=== PATIENT | female | born 1985 | race African-American/Black ===

== ENCOUNTER 2017-05-18 21:49 | Emergency (ER) | payer BC ==
--- NOTE | 2017-05-18 22:53 | ED ---
General Adult HPI - General Chief complaint: Chest Pain Stated complaint: Chest pain, numbness in back Source: patient, RN notes reviewed Mode of arrival: ambulatory Limitations: no limitations - History of Present Illness Initial comments: Chief complaint history of present illness is a 31-year-old female here for complaint of on-again off-again chest discomfort for one month. The chest pain lasts only for a second or 2. A sharp pain. Skin sometimes be reproduced by breathing or movement. The patient fears that it might be caused by her medication, she's been on Adipex for 9 months. Starting and stopping it. A friend of hers told her she developed pericardial effusion and should go to the hospital if she is having chest pain. - Related Data Home Medications Medication Instructions Recorded Confirmed No Known Home Medications [No 05/18/17 05/18/17 Known Home Medications] Allergies Allergy/AdvReac Type Severity Reaction Status Date / Time codeine Allergy Unknown Verified 05/18/17 23:22 Penicillins Allergy Unknown Verified 05/18/17 23:22 Review of Systems ROS Statement: Those systems with pertinent positive or pertinent negative responses have been documented in the HPI. Review of systems currently without chest pain though she does get it on again off again several times a day while sitting relaxing or taking a deep breath or coughing. No associated nausea vomiting sweats or radiation of pain. Patient reports she took her last Adipex pill 2 days ago. She's been taking it on again off again for over 9 months. All systems are reviewed. Patient denies any past medical problems. Surgeries include breast reduction, tonsils and adenoids, heel spur and right wrist ganglion. Family history no cancers or young deaths in adults. Patient has ALLERGIES to penicillin and codeine. She does not smoke or drink alcohol socially. Denies any exposure to chemicals on the job working home. ROS Other: All systems not noted in ROS Statement are negative. Limitations: ROS unobtainable due to patients medical condition Past Medical History Past Medical History: Asthma History of Any Multi-Drug Resistant Organisms: None Reported Past Surgical History: Breast Surgery, Orthopedic Surgery, Tonsillectomy Past Psychological History: Depression Smoking Status: Never smoker Past Alcohol Use History: Rare Past Drug Use History: None Reported General Exam - General Exam Comments Initial Comments: General: The patient is awake and alert, in no distress, and does not appear acutely ill. Here because of on again sharp pain to the chest. Vital signs show temperature of 98.0 pulse 95 respiratory rate 18 pulse ox on percent room air blood pressure 129/78 Eye: Pupils are equal, round and reactive to light, extra-ocular movements are intact ; there is normal conjunctiva bilaterally. No signs of icterus. Ears, nose, mouth and throat: There are moist mucous membranes and no oral lesions. Neck: The neck is supple, there is no tenderness . Cardiovascular: There is a regular rate and rhythm. No murmur, rub or gallop is appreciated. Respiratory: Lungs are clear to auscultation, respirations are non-labored, breath sounds are equal. No wheezes, stridor, rales, or rhonchi. Gastrointestinal: Soft, non-distended, non-tender abdomen without masses or organomegaly noted. There is no rebound or guarding present. Back: There is no tenderness to palpation in the midline. There is no obvious deformity. No rashes noted. Musculoskeletal: Normal ROM, no tenderness, There is no pedal edema. There is no calf tenderness or swelling. Sensation intact. Neurological: No neuro deficits Skin: Skin is warm and dry and no rashes or lesions are noted. Limitations: no limitations Course Vital Signs 05/18/17 05/18/17 05/19/17 21:53 23:18 00:00 Temperature 98.0 F 98.9 F Pulse Rate 95 85 85 Respiratory 18 18 16 Rate Blood Pressure 129/78 128/75 127/73 O2 Sat by Pulse 100 98 100 Oximetry EKG Findings - EKG Comments: EKG Findings:: EKG was done and reviewed at 2215 showing normal sinus rhythm no acute ST elevation no ectopy no ischemic changes. Rate 86 problems 140 QRS 80 QT [address] Stack Medical Decision Making - Medical Decision Making Medical decision making patient's white count is 10.2 hemoglobin 15 hematocrit of 47 the d-dimer 0.28. Potassium 3.9 BUN 13 creatinine 0.76 and GFR greater than 60. Glucose 82. Cardiac enzymes including troponin all within normal limits. Chest x-ray is done AP view and reviewed by radiologist findings include lungs are clear. Pleural spaces unremarkable. No pneumothorax. No evidence of pleural effusion. The heart size is within normal limits. Mediastinal structures are within normal limits. Bony thorax is unremarkable. No evidence of active chest disease. As read by Dr. Van Fleet The patient has stopped taking the Adipex and was told not to take anymore. We did discuss pulmonary hypertension etc. The patient's pain at this time fleeting lasts less than a second . Patient advised to follow-up with family physician for further evaluation is needed and possible echocardiogram. Otherwise the patient is symptom-free at this time. Advised to use ibuprofen for pain - Lab Data Result diagrams: 05/18/17 22:57 05/18/17 22:57 Lab Results 05/18/17 05/18/17 05/18/17 Range/Units 22:57 22:57 22:57 WBC 10.2 (3.8-10.6) k/uL RBC 5.06 (3.80-5.40) m/uL Hgb 15.3 (11.4-16.0) gm/dL Hct 47.2 H (34.0-46.0) % MCV 93.3 (80.0-100.0) fL MCH 30.3 (25.0-35.0) pg MCHC 32.5 (31.0-37.0) g/dL RDW 13.7 (11.5-15.5) % Plt Count 342 (150-450) k/uL Neutrophils % 73 % Lymphocytes % 20 % Monocytes % 4 % Eosinophils % 1 % Basophils % 1 % Neutrophils # 7.5 (1.3-7.7) k/uL Lymphocytes # 2.1 (1.0-4.8) k/uL Monocytes # 0.4 (0-1.0) k/uL Eosinophils # 0.1 (0-0.7) k/uL Basophils # 0.1 (0-0.2) k/uL D-Dimer (<0.60) mg/L FEU Sodium 139 (137-145) mmol/L Potassium 3.9 (3.5-5.1) mmol/L Chloride 104 (98-107) mmol/L Carbon Dioxide 25 (22-30) mmol/L Anion Gap 10 mmol/L BUN 13 (7-17) mg/dL Creatinine 0.76 (0.52-1.04) mg/dL Est GFR (MDRD) Af Amer >60 (>60 ml/min/1.73 sqM) Est GFR (MDRD) Non-Af >60 (>60 ml/min/1.73 sqM) Glucose 82 (74-99) mg/dL Calcium 9.6 (8.4-10.2) mg/dL Total Bilirubin 1.0 (0.2-1.3) mg/dL AST 22 (14-36) U/L ALT 32 (9-52) U/L Alkaline Phosphatase 66 (38-126) U/L Total Creatine Kinase 83 (30-135) U/L CK-MB (CK-2) 0.3 (0.0-2.4) ng/mL CK-MB (CK-2) Rel Index 0.4 Troponin I <0.012 (0.000-0.034) ng/mL Total Protein 7.2 (6.3-8.2) g/dL Albumin 4.4 (3.5-5.0) g/dL 05/18/17 Range/Units 22:57 WBC (3.8-10.6) k/uL RBC (3.80-5.40) m/uL Hgb (11.4-16.0) gm/dL Hct (34.0-46.0) % MCV (80.0-100.0) fL MCH (25.0-35.0) pg MCHC (31.0-37.0) g/dL RDW (11.5-15.5) % Plt Count (150-450) k/uL Neutrophils % % Lymphocytes % % Monocytes % % Eosinophils % % Basophils % % Neutrophils # (1.3-7.7) k/uL Lymphocytes # (1.0-4.8) k/uL Monocytes # (0-1.0) k/uL Eosinophils # (0-0.7) k/uL Basophils # (0-0.2) k/uL D-Dimer 0.28 (<0.60) mg/L FEU Sodium (137-145) mmol/L Potassium (3.5-5.1) mmol/L Chloride (98-107) mmol/L Carbon Dioxide (22-30) mmol/L Anion Gap mmol/L BUN (7-17) mg/dL Creatinine (0.52-1.04) mg/dL Est GFR (MDRD) Af Amer (>60 ml/min/1.73 sqM) Est GFR (MDRD) Non-Af (>60 ml/min/1.73 sqM) Glucose (74-99) mg/dL Calcium (8.4-10.2) mg/dL Total Bilirubin (0.2-1.3) mg/dL AST (14-36) U/L ALT (9-52) U/L Alkaline Phosphatase (38-126) U/L Total Creatine Kinase (30-135) U/L CK-MB (CK-2) (0.0-2.4) ng/mL CK-MB (CK-2) Rel Index Troponin I (0.000-0.034) ng/mL Total Protein (6.3-8.2) g/dL Albumin (3.5-5.0) g/dL Disposition Clinical Impression: Atypical chest pain, Medication reaction Disposition: HOME SELF-CARE Condition: Fair Instructions: Chest Pain (ED) Additional Instructions: stop taking Adipex. Call follow-up with family physician for further evaluation as needed. Return to emergency room as needed. Referrals: Erasto Chaidez MD [Primary Care Provider] - 1-2 days Time of Disposition: 00:19
--- NOTE | 2017-05-18 23:17 | XR ---
EXAM: XR Chest, 2 Views CLINICAL HISTORY: Reason: Chest Pain TECHNIQUE: Frontal and lateral views of the chest. COMPARISON: No relevant prior studies available. FINDINGS: Lungs: Lungs are clear. Pleural space: Unremarkable. No pneumothorax. No evidence of pleural effusion Heart: Heart size is within normal limits. Mediastinum: Mediastinal structures are within normal limits. Bones/joints: Bony thorax is unremarkable. IMPRESSION: No evidence of active chest disease.
[2017-05-18 23:19] LABS: ALT 32 U/L (9-52); AST 22 U/L (14-36); Alkaline Phosphatase 66 U/L (38-126); Anion Gap 10 mmol/L; Blood Urea Nitrogen 13 mg/dL (7-17); Calcium 9.6 mg/dL (8.4-10.2); Carbon Dioxide 25 mmol/L (22-30); Chloride 104 mmol/L (98-107); Glucose 82 mg/dL (74-99); Non-African American GFR(MDRD) >60 (>60 ml/min/1.73 sqM); Potassium 3.9 mmol/L (3.5-5.1); Sodium 139 mmol/L (137-145); Total Protein 7.2 g/dL (6.3-8.2)
[2017-05-18 23:20] VITALS: PULSE 85; TEMP 98.9
[2017-05-18 23:21] LABS: Basophils # (A) 0.1 k/uL (0-0.2); Basophils % (A) 1 %; CH 31.9; CHCM 34.4; Eosinophils # (A) 0.1 k/uL (0-0.7); Eosinophils % (A) 1 %; HCT 47.2 % (34.0-46.0); HDW 2.52; HGB 15.3 gm/dL (11.4-16.0); Luc # (Auto) 0.16; Luc % (Auto) 2; Lymphocytes # (A) 2.1 k/uL (1.0-4.8); Lymphocytes % (A) 20 %; MCH 30.3 pg (25.0-35.0); MCHC 32.5 g/dL (31.0-37.0); MCV 93.3 fL (80.0-100.0); Mean Platelet Volume 7.5; Monocytes # (A) 0.4 k/uL (0-1.0); Monocytes % (A) 4 %; Neutrophils # (A) 7.5 k/uL (1.3-7.7); Neutrophils % (A) 73 %; RBC 5.06 m/uL (3.80-5.40); RDW 13.7 % (11.5-15.5); WBC 10.2 k/uL (3.8-10.6); WBC (Perox) 9.66
[2017-05-18 23:29] LABS: Creatine Kinase 83 U/L (30-135)
[2017-05-18 23:42] LABS: Creatine Kinase MB 0.3 ng/mL (0.0-2.4); Troponin I <0.012 ng/mL (0.000-0.034)
[2017-05-19 00:01] VITALS: BP 127/73; RESP 16
[2017-05-19] MEDS ORDERED: IBUPROFEN 600 MG STARTER PACK 4 TAB BTL PO STA (00:22)
== END 2017-05-19 00:41 | disposition home or self-care (01) ==
LOC: EC 21:49
DX: R07.9 Chest pain, unspecified (principal); R20.0 Anesthesia of skin; T50.5X5A Adverse effect of appetite depressants, initial encounter; Z88.0 Allergy status to penicillin; Z88.5 Allergy status to narcotic agent
CPT/HCPCS: 36415; 71020; 80053; 82550; 82553; 84484; 85025; 85379; 93005; 99285

== ENCOUNTER → 2017-05-29 | Outpatient (CLI) | payer BC ==
--- NOTE | 2017-05-29 07:52 | XR ---
EXAMINATION TYPE: XR thoracic spine complete DATE OF EXAM: 05/29/2017 COMPARISON: NONE HISTORY: Back pain TECHNIQUE: 4 views FINDINGS: The vertebra have normal spacing and alignment. Posterior elements are intact. There is no paraspinal mass. IMPRESSION: Negative thoracic spine exam.
[2017-05-29 11:12] LABS: C Reactive Protein 10.5 mg/L (<10.0)
== END | disposition home or self-care (01) ==
LOC: LABWHC1 07:17
PROVIDERS: ATTEND Internal Medicine
DX: M54.6 Pain in thoracic spine (principal); E78.5 Hyperlipidemia, unspecified; E03.9 Hypothyroidism, unspecified; E55.9 Vitamin D deficiency, unspecified
CPT/HCPCS: 36415; 72072; 80061; 82306; 82550; 84439; 84443; 85652; 86140

== ENCOUNTER → 2019-09-04 | Outpatient (CLI) | payer BC | END | disposition home or self-care (01) | LOC: RADMAMWWP 13:27 | PROVIDERS: ATTEND Obstetrics & Gynecology | DX: Z53.9 Procedure and treatment not carried out, unspecified reason (principal) ==

== ENCOUNTER → 2019-10-13 | Outpatient (CLI) | payer BC ==
--- NOTE | 2019-10-16 08:46 | MM ---
Reason for exam: screening (asymptomatic). Baseline mammogram. History: Patient is nulliparous. Reductions of both breasts, 2013. Physical Findings: Nurse did not find any significant physical abnormalities on exam. MG Screening Mammo w CAD Bilateral CC and MLO view(s) were taken. Benign appearing bilateral calcifications. These results were verbally communicated with the patient and result sheet given to the patient on 10/13/19. ASSESSMENT: Benign, BI-RAD 2 RECOMMENDATION: Routine screening mammogram of both breasts at age 38.
== END | disposition home or self-care (01) ==
LOC: RADMAMWWP 13:42
PROVIDERS: ATTEND Obstetrics & Gynecology
DX: Z12.31 Encounter for screening mammogram for malignant neoplasm of breast (principal)
CPT/HCPCS: 77067

== ENCOUNTER 2019-12-04 08:48 | Emergency (ER) | payer BC ==
[2019-12-04] MEDS ORDERED: ACETAMINOPHEN TAB 500 MG TAB PO STA (09:08)
[2019-12-04] MEDS ORDERED: SODIUM CHLORIDE 0.9% 1,000 ML IV ONE (09:08)
--- NOTE | 2019-12-04 09:12 | ED ---
Abdominal Pain HPI - General Chief Complaint: Abdominal Pain Stated Complaint: 5wks preg, cramping Time Seen by Provider: 12/04/19 09:01 Source: patient, RN notes reviewed, old records reviewed Mode of arrival: ambulatory Limitations: no limitations - History of Present Illness Initial Comments: This Patient is a 34-year-old female who presents emergency Department today with abdominal cramping for the past week. She reports that she took a test and it was +2 days ago. Her AIR SUPPORT CONTROL OFFICER at this times Dr. Musa. Patient is a . She believes that she is approximately 4-5 weeks based off of last menstrual period on November 03.. Patient denies any vaginal bleeding. She does report some lower abdominal cramping, and feels that it is worse over her left side. Patient reports that she is generally healthy, denies any significant comorbidities. - Related Data Home Medications Medication Instructions Recorded Confirmed No Known Home Medications 05/18/17 05/18/17 Allergies Allergy/AdvReac Type Severity Reaction Status Date / Time codeine Allergy Unknown Verified 12/04/19 08:50 Penicillins Allergy Unknown Verified 12/04/19 08:50 Review of Systems ROS Statement: Those systems with pertinent positive or pertinent negative responses have been documented in the HPI. ROS Other: All systems not noted in ROS Statement are negative. Past Medical History Past Medical History: Asthma History of Any Multi-Drug Resistant Organisms: None Reported Past Surgical History: Breast Surgery, Orthopedic Surgery, Tonsillectomy Past Psychological History: No Psychological Hx Reported, Depression Smoking Status: Never smoker Past Alcohol Use History: Rare Past Drug Use History: None Reported General Exam - General Exam Comments Initial Comments: 34-year-old female. Alert and oriented 3. Patient appears in no significant distress. Limitations: no limitations General appearance: alert, in no apparent distress Head exam: Present: atraumatic, normocephalic, normal inspection Eye exam: Present: normal appearance, PERRL, EOMI. Absent: scleral icterus, conjunctival injection, periorbital swelling ENT exam: Present: normal exam, mucous membranes moist Neck exam: Present: normal inspection. Absent: tenderness, meningismus, lymphadenopathy Respiratory exam: Present: normal lung sounds bilaterally. Absent: respiratory distress, wheezes, rales, rhonchi, stridor Cardiovascular Exam: Present: regular rate, normal rhythm, normal heart sounds. Absent: systolic murmur, diastolic murmur, rubs, gallop, clicks GI/Abdominal exam: Present: soft, normal bowel sounds, other (minimal LLQ tenderness). Absent: distended, tenderness, guarding, rebound, rigid External exam: Present: normal external exam Speculum exam: Present: normal speculum exam. Absent: erythema, vaginal discharge, cervical discharge, vaginal bleeding, foreign body By manual exam: Present: normal by manual exam. Absent: cervical motion tenderness Extremities exam: Present: normal inspection, full ROM, normal capillary refill. Absent: tenderness, pedal edema, joint swelling, calf tenderness Back exam: Present: normal inspection Neurological exam: Present: alert, oriented X3, CN II-XII intact Course Vital Signs 12/04/19 12/04/19 08:50 10:51 Temperature 98.5 F 98.2 F Pulse Rate 98 70 Respiratory 18 19 Rate Blood Pressure 109/68 106/66 O2 Sat by Pulse 100 100 Oximetry Medical Decision Making - Medical Decision Making 34-year-old female presents today for abdominal pain early . Is concerned of possible ectopic. On exam she had minimal left-sided tenderness if anything but no significant pain. Patient labwork was reviewed today. She is Rh+. Ultrasound shows concern for intrauterine gestational sac but no heart: Regular pole is noted at this time. HCG levels 1999. This would be her first . I discussed the case with patient's AIR SUPPORT CONTROL OFFICER. Recommend following up in 2 weeks for ultrasound and repeating her hCG in 2 days. Patient is agreeable to treatment plan will comply. Return parameters were discussed. - Lab Data Result diagrams: 12/04/19 09:20 Lab Results 12/04/19 12/04/19 12/04/19 Range/Units 09:20 09:20 09:20 WBC 6.6 (3.8-10.6) k/uL RBC 4.62 (3.80-5.40) m/uL Hgb 13.8 (11.4-16.0) gm/dL Hct 40.3 (34.0-46.0) % MCV 87.1 (80.0-100.0) fL MCH 29.8 (25.0-35.0) pg MCHC 34.2 (31.0-37.0) g/dL RDW 13.1 (11.5-15.5) % Plt Count 313 (150-450) k/uL Neutrophils % 69 % Lymphocytes % 23 % Monocytes % 4 % Eosinophils % 2 % Basophils % 1 % Neutrophils # 4.6 (1.3-7.7) k/uL Lymphocytes # 1.5 (1.0-4.8) k/uL Monocytes # 0.3 (0-1.0) k/uL Eosinophils # 0.1 (0-0.7) k/uL Basophils # 0.0 (0-0.2) k/uL HCG, Quant mIU/mL Urine Color Urine Appearance (Clear) Urine pH (5.0-8.0) Ur Specific [place] (1.001-1.035) Urine Protein (Negative) Urine Glucose (UA) (Negative) Urine Ketones (Negative) Urine Blood (Negative) Urine Nitrite (Negative) Urine Bilirubin (Negative) Urine Urobilinogen (<2.0) mg/dL Ur Leukocyte Esterase (Negative) Urine RBC (0-5) /hpf Urine WBC (0-5) /hpf Ur Squamous Epith Cells (0-4) /hpf Amorphous Sediment (None) /hpf Urine Bacteria (None) /hpf Urine Mucus (None) /hpf Urine HCG, Qual Detected (Not Detectd) Chlamydia Source Chlamydia DNA (PCR) (Neg,Equiv) N. gonorrhoeae Source N.gonorrhoeae DNA Probe (Neg,Equiv) Trichomonas Ag (Rapid) (Negative) Blood Type B Positive Blood Type Recheck No Previous Record Bld Type Recheck Status [facility] ONLY 12/04/19 12/04/19 12/04/19 Range/Units 09:20 09:20 09:29 WBC (3.8-10.6) k/uL RBC (3.80-5.40) m/uL Hgb (11.4-16.0) gm/dL Hct (34.0-46.0) % MCV (80.0-100.0) fL MCH (25.0-35.0) pg MCHC (31.0-37.0) g/dL RDW (11.5-15.5) % Plt Count (150-450) k/uL Neutrophils % % Lymphocytes % % Monocytes % % Eosinophils % % Basophils % % Neutrophils # (1.3-7.7) k/uL Lymphocytes # (1.0-4.8) k/uL Monocytes # (0-1.0) k/uL Eosinophils # (0-0.7) k/uL Basophils # (0-0.2) k/uL HCG, Quant 2055.8 mIU/mL Urine Color Yellow Urine Appearance Cloudy H (Clear) Urine pH 7.5 (5.0-8.0) Ur Specific [place] 1.011 (1.001-1.035) Urine Protein Negative (Negative) Urine Glucose (UA) Negative (Negative) Urine Ketones Negative (Negative) Urine Blood Small H (Negative) Urine Nitrite Negative (Negative) Urine Bilirubin Negative (Negative) Urine Urobilinogen <2.0 (<2.0) mg/dL Ur Leukocyte Esterase Small H (Negative) Urine RBC 2 (0-5) /hpf Urine WBC 7 H (0-5) /hpf Ur Squamous Epith Cells 7 H (0-4) /hpf Amorphous Sediment Rare H (None) /hpf Urine Bacteria Occasional H (None) /hpf Urine Mucus Rare H (None) /hpf Urine HCG, Qual (Not Detectd) Chlamydia Source Vagina Chlamydia DNA (PCR) Negative (Neg,Equiv) N. gonorrhoeae Source N.gonorrhoeae DNA Probe (Neg,Equiv) Trichomonas Ag (Rapid) (Negative) Blood Type Blood Type Recheck Bld Type Recheck Status 12/04/19 12/04/19 Range/Units 09:29 09:29 WBC (3.8-10.6) k/uL RBC (3.80-5.40) m/uL Hgb (11.4-16.0) gm/dL Hct (34.0-46.0) % MCV (80.0-100.0) fL MCH (25.0-35.0) pg MCHC (31.0-37.0) g/dL RDW (11.5-15.5) % Plt Count (150-450) k/uL Neutrophils % % Lymphocytes % % Monocytes % % Eosinophils % % Basophils % % Neutrophils # (1.3-7.7) k/uL Lymphocytes # (1.0-4.8) k/uL Monocytes # (0-1.0) k/uL Eosinophils # (0-0.7) k/uL Basophils # (0-0.2) k/uL HCG, Quant mIU/mL Urine Color Urine Appearance (Clear) Urine pH (5.0-8.0) Ur Specific [place] (1.001-1.035) Urine Protein (Negative) Urine Glucose (UA) (Negative) Urine Ketones (Negative) Urine Blood (Negative) Urine Nitrite (Negative) Urine Bilirubin (Negative) Urine Urobilinogen (<2.0) mg/dL Ur Leukocyte Esterase (Negative) Urine RBC (0-5) /hpf Urine WBC (0-5) /hpf Ur Squamous Epith Cells (0-4) /hpf Amorphous Sediment (None) /hpf Urine Bacteria (None) /hpf Urine Mucus (None) /hpf Urine HCG, Qual (Not Detectd) Chlamydia Source Chlamydia DNA (PCR) (Neg,Equiv) N. gonorrhoeae Source Vagina N.gonorrhoeae DNA Probe Negative (Neg,Equiv) Trichomonas Ag (Rapid) Negative (Negative) Blood Type Blood Type Recheck Bld Type Recheck Status - Radiology Data Radiology results: report reviewed Ultrasound shows intrauterine fluid collection likely represents early gestational sac however no pole yolk sac are seen. Therefore spontaneous or ectopic cannot yet be ruled out. Recommendation for surgery serial hCGs. Probable uterine leiomyoma. Trace fluid in the right adnexa and posterior cul-de-sac. Disposition Clinical Impression: Early stage of Disposition: HOME SELF-CARE Condition: Good Instructions (If sedation given, give patient instructions): Abdominal Pain in (ED) Additional Instructions: Patient advised to repeat her hCG level in 2 days. Recommended following up with your AIR SUPPORT CONTROL OFFICER. Return to the ED if any alarming signs or symptoms occur. Is patient prescribed a controlled substance at d/c from ED?: No Referrals: Erasto Chaidez MD [Primary Care Provider] - 1-2 days Daniela Musa DO [Doctor of Osteopathic Medicine] - 1-2 days Time of Disposition: 11:04
[2019-12-04 09:35] LABS: Basophils % (A) 1 %; Eosinophils # (A) 0.1 k/uL (0-0.7); Eosinophils % (A) 2 %; HCT 40.3 % (34.0-46.0); HGB 13.8 gm/dL (11.4-16.0); Lymphocytes # (A) 1.5 k/uL (1.0-4.8); Lymphocytes % (A) 23 %; MCH 29.8 pg (25.0-35.0); MCHC 34.2 g/dL (31.0-37.0); MCV 87.1 fL (80.0-100.0); Mean Platelet Volume 7.1; Monocytes # (A) 0.3 k/uL (0-1.0); Monocytes % (A) 4 %; Neutrophils # (A) 4.6 k/uL (1.3-7.7); Neutrophils % (A) 69 %; Platelet Count 313 k/uL (150-450); RBC 4.62 m/uL (3.80-5.40); RDW 13.1 % (11.5-15.5); WBC 6.6 k/uL (3.8-10.6)
[2019-12-04 09:44] LABS: Amorphous Sediment,Urine Rare /hpf; Appearance,Urine Cloudy (Clear); Bacteria,Urine Occasional /hpf; Bilirubin,Urine Negative (Negative); Blood,Urine Small (Negative); Color,Urine Yellow; Glucose,Urine (UA) Negative (Negative); Ketones,Urine Negative (Negative); Leukocyte Esterase,Urine Small (Negative); Mucus,Urine Rare /hpf; Nitrite,Urine Negative (Negative); PH, Urine 7.5 (5.0-8.0); Protein,Urine Negative (Negative); RBC,Urine 2 /hpf (0-5); Specific Gravity,Urine 1.011 (1.001-1.035); Squamous Epithelial Cell,Urine 7 /hpf (0-4); Urobilinogen,Urine <2.0 mg/dL (<2.0); WBC,Urine 7 /hpf (0-5)
--- NOTE | 2019-12-04 10:25 | US ---
EXAMINATION TYPE: Transabdominal DATE OF EXAM: 12/04/2019 9:58 AM COMPARISON: NONE CLINICAL HISTORY: left abdominal pain, early . Pelvic cramping EXAM PERFORMED: Transvaginal (TV) and Transabdominal (TA) EXAM MEASUREMENTS: GESTATIONAL AGE / DATING Physician Established: Not yet established Dates by LMP: (4 weeks/3 days) EDC: 08/09/20 Dates by First Scan: No previous this is first scan Dates by Current Scan for: (5 weeks/0 days) EDC: 08/05/20 - MSD MATERNAL ANATOMY Uterus: 9.1 x 5.0 x 6.2cm Right Ovary: 3.9 x 2.3 x 2.7cm Left Ovary: 2.9 x 1.6 x 1.7cm Post CDS / Adnexa: trace free fluid posterior cul-de-sac and right adnexa Presence of free fluid: yes Presence of corpus luteal cyst: complex area right ovary = 3.0 x 2.6 x 2.4cm GESTATION / SURVEY MSD: 0.5cm (5 weeks/0 days) IUP: No evidence of pole at this time Date of LMP: 11/03/19 Beta HcG (if available): Not available at this time Possible gestational sac visualized within uterus, no evidence of pole or yolk sac at this time . Hypoechoic area anterior fundus = 2.0 x 1.7 x 1.7cm, possible fibroid. Probable corpus luteum right ovary. Trace free fluid right adnexa and cul-de-sac IMPRESSION: 1. Intrauterine fluid collection likely represents early gestational sac however no pole or yol k sac are yet seen at this time and therefore spontaneous and ectopic cannot yet b e ruled out. Recommendation is for short term serum serial follow-up beta hCGs and pelvic ultrasound in 7 days. 2. Probable uterine leiomyoma. 3. Trace free fluid in the right adnexa and posterior cul-de-sac is likely physiologic in nature.
[2019-12-04 10:52] VITALS: BP 106/66; PULSE 70; RESP 19; TEMP 98.2
[2019-12-05 15:37] LABS: C. trachomatis,PCR Negative (Neg,Equiv); Chlamydia trachomatis Source Vagina
[2019-12-05 15:44] LABS: N. gonorrhoeae,PCR Negative (Neg,Equiv); Neisseria Source Vagina
== END 2019-12-04 11:17 | disposition home or self-care (01) ==
LOC: EC 08:48
DX: O99.89 Other specified diseases and conditions complicating pregnancy, childbirth and the puerperium (principal); R10.32 Left lower quadrant pain; Z88.0 Allergy status to penicillin; Z88.5 Allergy status to narcotic agent; Z67.20 Type B blood, Rh positive; Z3A.01 Less than 8 weeks gestation of pregnancy
CPT/HCPCS: 36415; 76801; 76817; 81001; 81025; 84702; 85025; 86900; 86901; 87070; 87491; 87591; 87808; 96360; 99284

== ENCOUNTER → 2019-12-06 | Outpatient (CLI) | payer BC | END | disposition home or self-care (01) | LOC: LABWHC1 12:52 | PROVIDERS: ATTEND Obstetrics & Gynecology | DX: O20.0 Threatened abortion (principal); Z3A.00 Weeks of gestation of pregnancy not specified | CPT/HCPCS: 36415; 84702 ==

== ENCOUNTER 2019-12-24 | Emergency (ER) | payer BC | END 2019-12-24 20:57 | disposition home or self-care (01) | CPT/HCPCS: 70360; 99284 ==

== ENCOUNTER → 2020-01-12 | Outpatient (CLI) | payer BC ==
[2020-01-12 11:37] LABS: Basophils % (A) 1 %; Eosinophils # (A) 0.1 k/uL (0-0.7); Eosinophils % (A) 2 %; HCT 45.3 % (34.0-46.0); HGB 15.7 gm/dL (11.4-16.0); Lymphocytes # (A) 1.6 k/uL (1.0-4.8); Lymphocytes % (A) 21 %; MCH 30.1 pg (25.0-35.0); MCHC 34.5 g/dL (31.0-37.0); MCV 87.1 fL (80.0-100.0); Mean Platelet Volume 7.4; Monocytes # (A) 0.5 k/uL (0-1.0); Monocytes % (A) 6 %; Neutrophils # (A) 5.5 k/uL (1.3-7.7); Neutrophils % (A) 70 %; Platelet Count 295 k/uL (150-450); RDW 12.7 % (11.5-15.5); WBC 7.8 k/uL (3.8-10.6)
== END | disposition home or self-care (01) ==
LOC: LABPAT 10:07
PROVIDERS: ATTEND Obstetrics & Gynecology
DX: Z01.818 Encounter for other preprocedural examination (principal)
CPT/HCPCS: 36415; 85025

== ENCOUNTER → 2020-01-16 | Outpatient (CLI) | payer BC | END | disposition home or self-care (01) | LOC: LABWHC1 12:00 | PROVIDERS: ATTEND Obstetrics & Gynecology | DX: Z01.818 Encounter for other preprocedural examination (principal) | CPT/HCPCS: 36415; 86850; 86900; 86901 ==

== ENCOUNTER 2020-01-18 05:59 | Day surgery (SDC) | payer BC ==
[2020-01-16 10:51] VITALS: BMI 37.1
--- NOTE | 2020-01-17 14:59 | P.HPOB ---
History of Present Illness H&P Date: 01/17/20 Chief Complaint: Missed This is a 34 y.o. female, 1, para 0 with a last menstrual period of 11/03/2019, who presents for suction dilatation and curettage due to missed of twin gestation. She had an US on 12/25/2019 that showed twin gestation with no heart tones on twin A and a heart rate of 112 on twin B. Twin A did show a crown rump length equivalent to 8 weeks. A follow-up US on 01/01/2020 showed no heart tones on both twins with a mono-chorionic, diamniotic . She had a confirmatory US on 01/12/2020 that again confirmed no heart tones and a gestational age of approximately 8 weeks. She does have some brown spotting, but no active bleeding or cramping. She would like definitive surgical treatment for her miscarriage. Blood type is B+. 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 Works at [employer]. Review of Systems Constitutional: Denies chills, Denies fever Eyes: denies blurred vision, denies pain Ears, nose, mouth and throat: Denies headache, Denies sore throat Cardiovascular: Denies chest pain, Denies shortness of breath Respiratory: Denies cough Gastrointestinal: Denies abdominal pain, Denies diarrhea, Denies nausea, Denies vomiting Genitourinary: Reports , Denies pelvic pain Musculoskeletal: Denies myalgias Integumentary: Denies pruritus, Denies rash Neurological: Denies numbness, Denies weakness Psychiatric: Reports depression Past Medical History Past Medical History: Asthma, Neurologic Disorder (Migraines) Additional Past Medical History / Comment(s): RECENT MISSED AB History of Any Multi-Drug Resistant Organisms: None Reported Past Surgical History: Breast Surgery, Orthopedic Surgery, Tonsillectomy Additional Past Surgical History / Comment(s): CYST REMOVED RT WRIST. LT HEEL SPUR REMOVED. BREAST REDUCTION. CTR-RT HAND Past Anesthesia/Blood Transfusion Reactions: Motion Sickness, Postoperative Nausea & Vomiting (PONV) Past Psychological History: Depression Smoking Status: Never smoker Past Alcohol Use History: Occasional Past Drug Use History: None Reported - Past Family History Mother Family Medical History: No Reported History Medications and Allergies Home Medications Medication Instructions Recorded Confirmed Type No Known Home Medications 01/16/20 01/18/20 History Allergies Allergy/AdvReac Type Severity Reaction Status Date / Time codeine Allergy Unknown Verified 01/18/20 06:18 Childhood Penicillins Allergy Unknown Verified 01/18/20 06:18 Childhood Exam Osteopathic Statement: *. No significant issues noted on an osteopathic structural exam other than those noted in the History and Physical/Consult. HEENT: within normal limits Heart: regular rate and rhythm Lungs: clear to auscultation bilaterally Abdomen: , non-tender Pelvic: uterus anteverted, sl. enlarged, non-tender with no adnexal masses Extremities: neg. Dennise's Assessment and Plan (1) Missed Current Visit: No Status: Acute Code(s): O02.1 - MISSED SNOMED Code(s): 60205723 Plan: Proceed with suction dilatation and curettage. I have discussed the risks, benefits, and alternative therapies for the above-mentioned procedure and for both sedation/anesthesia as well as necessary blood products administration, if indicated, as they pertain to this patient. The patient has indicated her understanding and acceptance of the risks and procedures discussed.
[~2020-01-18 05:59] MED LIST: Pre Op ABX Message 1 EACH MISC MISCELLANE ONE
[2020-01-18] MEDS ORDERED: HYDROmorphone 0.5 MG/0.5 ML SYRINGE IVP PRN (06:09)
[2020-01-18] MEDS ORDERED: ONDANSETRON 4 MG/2 ML VIAL IVP ONE (06:09)
[2020-01-18] MEDS ORDERED: LACTATED RINGERS 1,000 ML IV SCH (06:09)
[2020-01-18] MEDS ORDERED: DEXAMETHASONE SOD PHOSPHATE 10 MG/ML 1 ML VIAL IV ONE (06:09)
[2020-01-18] MEDS ORDERED: SCOPOLAMINE 1.5MG/72HR PATCH TRANSDERM ONE (06:30)
[2020-01-18] MEDS ORDERED: LIDOCAINE 1% (10MG/ML) FOR IV START INTRADERMA ONE (06:30)
[2020-01-18] MEDS ORDERED: MIDAZOLAM 2 MG/2 ML VIAL IV ONE (07:00)
[2020-01-18] MEDS ORDERED: PROPOFOL 10 MG/ML 20 ML VIAL IV ONE (07:14)
[2020-01-18] MEDS ORDERED: MIDAZOLAM 2 MG/2 ML VIAL ONE (07:14)
[2020-01-18] MEDS ORDERED: fentaNYL (PF) 50 MCG/ML 2 ML AMP ONE (07:14)
[2020-01-18] MEDS ORDERED: SUCCINYLCHOLINE CHLORIDE 100 MG/5 ML SYR IV ONE (07:14)
[2020-01-18] MEDS ORDERED: KETOROLAC 30 MG/ML 1 ML VIAL ONE (07:14)
--- NOTE | 2020-01-18 07:41 | P.OP ---
Date of Procedure: 01/18/20 Preoperative Diagnosis: Missed Postoperative Diagnosis: Same Procedure(s) Performed: Suction dilation and curettage Anesthesia: TYRON Surgeon: Daniela Musa Estimated Blood Loss (ml): 300 (300 mL in suction canister for D&C) Pathology: other (Products of conception) Condition: stable Disposition: same day Indications for Procedure: This is a 34 y.o. female, 1, para 0 with a last menstrual period of 11/03/2019, who presents for suction dilatation and curettage due to missed of twin gestation. She had an US on 12/25/2019 that showed twin gestation with no heart tones on twin A and a heart rate of 112 on twin B. Twin A did show a crown rump length equivalent to 8 weeks. A follow-up US on 01/01/2020 showed no heart tones on both twins with a mono-chorionic, diamniotic . She had a confirmatory US on 01/12/2020 that again co nfirmed no heart tones and a gestational age of approximately 8 weeks. She does have some brown spotting, but no active bleeding or cramping. She would like definitive surgical treatment for her miscarriage. Blood type is B+. Operative Findings: Uterus is sounded to 11 cm. A large amount of products of conception are noted. Uterus is anteverted with no adnexal masses palpated. Description of Procedure: The patient is taken to the operating room where she is placed in the dorsal lithotomy position. She is prepped and draped in sterile fashion. Bladder is drained with a catheter and then removed. The patient is found to be anteverted, slightly enlarged, with no adnexal masses palpated. Next a weighted speculum was placed in the patient's vagina. A right angle retractor was used to visualize the cervix. The anterior lip of the cervix is grasped with a single-tooth tenaculum. Next the cervix is gently dilated with a Mckeon dilator. Uterus is sounded to 11 cm. The cervix is gently dilated further with Mckeon dilators until a suction curet could be placed. Initially I attempted to place a 9 mm suction curet but it did not go through. I then placed at 8 mm suction curet and suction curettage was performed until no further tissue was obtained. A medium-size sharp curet was then introduced and sharp curettage was performed with minimal further tissue obtained. Suction curetting was performed one further time to remove any further tissue. Single-tooth tenaculum was removed. O active bleeding was noted. All instruments are removed from the vagina. All sponge and needle counts are correct. The patient is then taken to recovery room in stable condition.
[2020-01-18 08:05] VITALS: TEMP 97.5
[2020-01-18 08:14] VITALS: RESP 16
[2020-01-18 09:08] VITALS: BP 107/67; PULSE 83
== END 2020-01-18 09:26 | disposition home or self-care (01) ==
LOC: OR 05:59
PROVIDERS: ATTEND Obstetrics & Gynecology
DX: O02.1 Missed abortion (principal); J45.909 Unspecified asthma, uncomplicated; F32.9 Major depressive disorder, single episode, unspecified; E66.9 Obesity, unspecified; Z86.69 Personal history of other diseases of the nervous system and sense organs; Z90.89 Acquired absence of other organs; Z98.890 Other specified postprocedural states; Z88.0 Allergy status to penicillin; Z88.5 Allergy status to narcotic agent; Z68.37 Body mass index [BMI] 37.0-37.9, adult
CPT/HCPCS: 59820; 86900; 86901; 88305; 86850; 36415; J2250; J1100; J2405; J3010; J1885; J0330; J2704

== ENCOUNTER → 2020-04-08 | Outpatient (CLI) | payer BC | END | disposition home or self-care (01) | LOC: LABWHC1 10:28 | PROVIDERS: ATTEND Obstetrics & Gynecology | DX: N91.2 Amenorrhea, unspecified (principal) | CPT/HCPCS: 36415; 84702 ==

== ENCOUNTER → 2020-04-26 | Outpatient (CLI) | payer BC | END | disposition home or self-care (01) | LOC: LABWHC1 12:42 | PROVIDERS: ATTEND Obstetrics & Gynecology | DX: O20.0 Threatened abortion (principal) | CPT/HCPCS: 36415; 84702 ==

== ENCOUNTER → 2020-04-29 | Outpatient (CLI) | payer BC | END | disposition home or self-care (01) | LOC: LABWHC1 08:22 | PROVIDERS: ATTEND Obstetrics & Gynecology | DX: O20.0 Threatened abortion (principal) | CPT/HCPCS: 36415; 84702 ==

== ENCOUNTER → 2020-04-30 | Outpatient (CLI) | payer BC ==
--- NOTE | 2020-04-30 11:16 | US ---
EXAMINATION TYPE: Ultrasound OB <= 14 week fetus DATE OF EXAM: 04/30/2020 7:30 AM COMPARISON: NONE CLINICAL HISTORY: 34-year-old female O46.91 BLEEDING/SPOTTING. Dates. Hx miscarriage EXAM PERFORMED: Transabdominal (TA) FINDINGS: EXAM MEASUREMENTS: GESTATIONAL AGE / DATING Dates by LMP: ( 7 weeks/1 days) EDC: 12/16/2020 Dates by First Scan: No previous this is first scan Dates by Current Scan for: ( 7 weeks/1 days) EDC: 12/16/2020 MATERNAL ANATOMY Uterus: 10.5 x 6.7 x 4.9 cm Right Ovary: 3.0 x 1.4 x 1.9 cm Left Ovary: 3.0 x 1.5 x 2.1 Post CDS / Adnexa: no free fluid Presence of free fluid: no Presence of corpus luteal cyst: cystic lesion seen in left ovary = 3.0 x 2.5 x 2.2 cm Presence of subchorionic bleed: no GESTATION / SURVEY CRL: 0.9 cm (7 weeks/0 days) MSD: seen, not measured Yolk Sac (normal less than 6mm): 3.2 mm Heart Rate: 146 bpm Rhythm: Normal IUP: Viable IUP Date of LMP: 03/11/2020 Beta HcG (if available): Not available at this time [employer] Inspector notes: Single live IUP measuring 7 weeks 1 days. IMPRESSION: 1. Single live intrauterine with estimated gestational age of 7 weeks 1 day by LMP. Current ultrasound biometry is exactly concordant. 2. A 3.0 cm probable corpus luteum within the left ovary. 3. Complete survey recommended at 18-20 weeks.
== END | disposition home or self-care (01) ==
LOC: RADUSWWP 07:10
PROVIDERS: ATTEND Obstetrics & Gynecology
DX: O46.91 Antepartum hemorrhage, unspecified, first trimester (principal); Z3A.01 Less than 8 weeks gestation of pregnancy
CPT/HCPCS: 76801

== ENCOUNTER 2020-05-27 10:07 | Emergency (ER) | payer BC ==
[2020-05-27 10:14] VITALS: PULSE 89; RESP 16; TEMP 98
[2020-05-27] MEDS ORDERED: METOCLOPRAMIDE 5 MG/ML 2 ML VIAL IVP STA (10:38)
[2020-05-27] MEDS ORDERED: SODIUM CHLORIDE 0.9% 1,000 ML IV STA (10:38)
[2020-05-27] MEDS ORDERED: ACETAMINOPHEN TAB 325 MG TAB PO STA (10:39)
[2020-05-27 11:11] LABS: Basophils # (A) 0.1 k/uL (0-0.2); Basophils % (A) 1 %; Eosinophils # (A) 0.1 k/uL (0-0.7); Eosinophils % (A) 2 %; HCT 44.1 % (34.0-46.0); HGB 14.9 gm/dL (11.4-16.0); Lymphocytes # (A) 1.7 k/uL (1.0-4.8); Lymphocytes % (A) 19 %; MCH 29.3 pg (25.0-35.0); MCHC 33.9 g/dL (31.0-37.0); MCV 86.5 fL (80.0-100.0); Mean Platelet Volume 7.2; Monocytes # (A) 0.4 k/uL (0-1.0); Monocytes % (A) 5 %; Neutrophils # (A) 6.5 k/uL (1.3-7.7); Neutrophils % (A) 74 %; Platelet Count 275 k/uL (150-450); RDW 12.9 % (11.5-15.5); WBC 8.8 k/uL (3.8-10.6)
--- NOTE | 2020-05-27 11:14 | ED ---
Abdominal Pain HPI - General Chief Complaint: Abdominal Pain Stated Complaint: 11wks preg, abd pain, vomiting Time Seen by Provider: 05/27/20 10:19 Source: patient Mode of arrival: ambulatory Limitations: no limitations - History of Present Illness Initial Comments: Patient is a 34-year-old female presenting to the emergency Department with complaints of lower abdominal discomfort that has been ongoing for 1 week. She is currently 11 weeks , , ARCADE TECHNICIAN is Dr. Musa. Also complaining of nausea and vomiting however she's been having nausea for the past few weeks throughout her . She was prescribed Zofran which she takes intermi ttently however does not feel it is helping. She describes the lower abdominal pain is either on her left or right side, mostly in the lower quadrants with some pain over her bladder as well. She states she thinks she might have some dysuria, no hematuria. She denies any vaginal bleeding. Her has progressing without complication. She denies history of abdominal surgeries. She denies recent fever, chills, diarrhea. Denies any chest pain or shortness of breath. She has no further complaints at this time. Upon arrival to the ER, her vital signs are stable. - Related Data Home Medications Medication Instructions Recorded Confirmed Albuterol Sulfate [Proair Hfa] 1 - 2 puff INHALATION RT-Q6H PRN 05/27/20 05/27/20 Cholecalciferol [Vitamin D3 (25 5,000 unit PO DAILY 05/27/20 05/27/20 Mcg = 1000 Iu)] Multivitamin [Multivitamins Adult 2 tab PO DAILY 05/27/20 05/27/20 Gummies] Ondansetron [Zofran] 4 mg PO Q8H PRN 05/27/20 05/27/20 Previous Rx's Medication Instructions Recorded Cephalexin [Keflex] 500 mg PO BID 5 Days #10 cap 05/27/20 Metoclopramide [Reglan] 10 mg PO TID PRN #15 tab 05/27/20 Allergies Allergy/AdvReac Type Severity Reaction Status Date / Time codeine Allergy Unknown Verified 05/27/20 10:56 Childhood Penicillins Allergy Unknown Verified 05/27/20 10:56 Childhood Review of Systems ROS Statement: Those systems with pertinent positive or pertinent negative responses have been documented in the HPI. ROS Other: All systems not noted in ROS Statement are negative. Past Medical History Past Medical History: Asthma, Neurologic Disorder Additional Past Medical History / Comment(s): RECENT MISSED AB History of Any Multi-Drug Resistant Organisms: None Reported Past Surgical History: Breast Surgery, Orthopedic Surgery, Tonsillectomy Additional Past Surgical History / Comment(s): CYST REMOVED RT WRIST. LT HEEL S PUR REMOVED. BREAST REDUCTION. CTR-RT HAND Past Anesthesia/Blood Transfusion Reactions: Motion Sickness, Postoperative Nausea & Vomiting (PONV) Past Psychological History: Depression Smoking Status: Never smoker Past Alcohol Use History: None Reported Past Drug Use History: None Reported - Past Family History Mother Family Medical History: No Reported History General Exam - General Exam Comments Initial Comments: GENERAL: Patient is well-developed and well-nourished. Patient is nontoxic and in no acute distress. HEAD: Atraumatic, normocephalic. EYES: Pupils equal round and reactive to light, extraocular movements intact, sclera anicteric, conjunctiva are normal. Eyelids were unremarkable. ENT: TMs normal, nares patent, oropharynx clear without exudates. Moist mucous membranes. NECK: Normal range of motion, supple without lymphadenopathy or JVD. LUNGS: Unlabored respirations. Breath sounds clear to auscultation bilaterally and equal. No wheezes rales or rhonchi. HEART: Regular rate and rhythm without murmurs, rubs or gallops. ABDOMEN: Mild discomfort with palpation of the entire lower abdomen, suprapubic area. No pain in the upper abdomen. Soft, normoactive bowel sounds. No guarding, no rebound. No masses appreciated. : Deferred MUSCULOSKELETAL: Normal extremities with adequate strength and normal range of motion, no pitting or edema. No clubbing or cyanosis. NEUROLOGICAL: Patient is alert and oriented x 3. Motor and sensory are also intact. Normal speech, normal gait. PSYCH: Normal mood, normal affect. SKIN: Warm, Dry, normal turgor, no rashes or lesions noted. Limitations: no limitations Course Vital Signs 05/27/20 05/27/20 05/27/20 10:12 12:36 12:40 Temperature 98.0 F 98.0 F 98.0 F Pulse Rate 89 89 89 Respiratory 16 16 16 Rate Blood Pressure 107/78 107/78 112/78 O2 Sat by Pulse 98 98 98 Oximetry Medical Decision Making - Medical Decision Making Patient is a 34-year-old female, currently 11 weeks , presenting with lower abdominal discomfort over the past week. She also has nausea and vomiting over she's had this last 4 weeks. Her vital signs are stable. Mild tenderness over suprapubic area. Lab work shows a normal white count, normal lactic acid. Urine does show occasional bacteria, 8 WBCs and large amount of leukocyte Estrace. Ultrasound reveals a viable IUP at 11 weeks, HR 157, no acute abnormalities. Discussed with patient that her symptoms are most likely related to a UTI as well as round ligament pain. Patient will be started on Keflex and also given a prescription for Reglan for her nausea. Patient is agreeable with this plan of care. She will follow-up with her ARCADE TECHNICIAN. She is stable for discharge. Return parameters were discussed with the patient she verbalized understanding. Case discussed with Dr. Angel. - Lab Data Result diagrams: 05/27/20 10:48 05/27/20 10:48 Lab Results 05/27/20 05/27/20 05/27/20 Range/Units 10:48 10:48 10:48 WBC 8.8 (3.8-10.6) k/uL RBC 5.10 (3.80-5.40) m/uL Hgb 14.9 (11.4-16.0) gm/dL Hct 44.1 (34.0-46.0) % MCV 86.5 (80.0-100.0) fL MCH 29.3 (25.0-35.0) pg MCHC 33.9 (31.0-37.0) g/dL RDW 12.9 (11.5-15.5) % Plt Count 275 (150-450) k/uL Neutrophils % 74 % Lymphocytes % 19 % Monocytes % 5 % Eosinophils % 2 % Basophils % 1 % Neutrophils # 6.5 (1.3-7.7) k/uL Lymphocytes # 1.7 (1.0-4.8) k/uL Monocytes # 0.4 (0-1.0) k/uL Eosinophils # 0.1 (0-0.7) k/uL Basophils # 0.1 (0-0.2) k/uL Sodium 134 L (137-145) mmol/L Potassium 3.9 (3.5-5.1) mmol/L Chloride 103 (98-107) mmol/L Carbon Dioxide 24 (22-30) mmol/L Anion Gap 7 mmol/L BUN 8 (7-17) mg/dL Creatinine 0.56 (0.52-1.04) mg/dL Est GFR (CKD-EPI)AfAm >90 (>60 ml/min/1.73 sqM) Est GFR (CKD-EPI)NonAf >90 (>60 ml/min/1.73 sqM) Glucose 92 (74-99) mg/dL Plasma Lactic Acid Juan M 0.6 L (0.7-2.0) mmol/L Calcium 9.8 (8.4-10.2) mg/dL Total Bilirubin 1.1 (0.2-1.3) mg/dL AST 20 (14-36) U/L ALT 11 (4-34) U/L Alkaline Phosphatase 60 (38-126) U/L Total Protein 6.5 (6.3-8.2) g/dL Albumin 3.8 (3.5-5.0) g/dL Lipase 36 (23-300) U/L Urine Color Urine Appearance (Clear) Urine pH (5.0-8.0) Ur Specific [place] (1.001-1.035) Urine Protein (Negative) Urine Glucose (UA) (Negative) Urine Ketones (Negative) Urine Blood (Negative) Urine Nitrite (Negative) Urine Bilirubin (Negative) Urine Urobilinogen (<2.0) mg/dL Ur Leukocyte Esterase (Negative) Urine RBC (0-5) /hpf Urine WBC (0-5) /hpf Ur Squamous Epith Cells (0-4) /hpf Urine Bacteria (None) /hpf Urine Mucus (None) /hpf 05/27/20 Range/Units 11:08 WBC (3.8-10.6) k/uL RBC (3.80-5.40) m/uL Hgb (11.4-16.0) gm/dL Hct (34.0-46.0) % MCV (80.0-100.0) fL MCH (25.0-35.0) pg MCHC (31.0-37.0) g/dL RDW (11.5-15.5) % Plt Count (150-450) k/uL Neutrophils % % Lymphocytes % % Monocytes % % Eosinophils % % Basophils % % Neutrophils # (1.3-7.7) k/uL Lymphocytes # (1.0-4.8) k/uL Monocytes # (0-1.0) k/uL Eosinophils # (0-0.7) k/uL Basophils # (0-0.2) k/uL Sodium (137-145) mmol/L Potassium (3.5-5.1) mmol/L Chloride (98-107) mmol/L Carbon Dioxide (22-30) mmol/L Anion Gap mmol/L BUN (7-17) mg/dL Creatinine (0.52-1.04) mg/dL Est GFR (CKD-EPI)AfAm (>60 ml/min/1.73 sqM) Est GFR (CKD-EPI)NonAf (>60 ml/min/1.73 sqM) Glucose (74-99) mg/dL Plasma Lactic Acid Juan M (0.7-2.0) mmol/L Calcium (8.4-10.2) mg/dL Total Bilirubin (0.2-1.3) mg/dL AST (14-36) U/L ALT (4-34) U/L Alkaline Phosphatase (38-126) U/L Total Protein (6.3-8.2) g/dL Albumin (3.5-5.0) g/dL Lipase (23-300) U/L Urine Color Jacqui Urine Appearance Cloudy H (Clear) Urine pH 6.0 (5.0-8.0) Ur Specific [place] 1.015 (1.001-1.035) Urine Protein 1+ (Negative) Urine Glucose (UA) Negative (Negative) Urine Ketones Negative (Negative) Urine Blood Negative (Negative) Urine Nitrite Negative (Negative) Urine Bilirubin Negative (Negative) Urine Urobilinogen 2.0 (<2.0) mg/dL Ur Leukocyte Esterase Large (Negative) Urine RBC 2 (0-5) /hpf Urine WBC 8 H (0-5) /hpf Ur Squamous Epith Cells 14 H (0-4) /hpf Urine Bacteria Occasional H (None) /hpf Urine Mucus Few H (None) /hpf Disposition Clinical Impression: UTI (urinary tract infection) during , Round ligament pain Disposition: HOME SELF-CARE Condition: Stable Instructions (If sedation given, give patient instructions): Urinary Tract Infection in (ED) Additional Instructions: Please return to the Emergency Department if symptoms worsen or any other concerns. Take Tylenol for discomfort. Take antibiotics as prescribed. Follow up with ARCADE TECHNICIAN. Prescriptions: Cephalexin [Keflex] 500 mg PO BID 5 Days #10 cap Metoclopramide [Reglan] 10 mg PO TID PRN #15 tab PRN Reason: GERD Is patient prescribed a controlled substance at d/c from ED?: No Referrals: Erasto Chaidez MD [Primary Care Provider] - 1-2 days Daniela Musa DO [Doctor of Osteopathic Medicine] - 1-2 days
[2020-05-27 11:19] LABS: ALT 11 U/L (4-34); AST 20 U/L (14-36); African American GFR (CKD) >90 (>60 ml/min/1.73 sqM); Albumin 3.8 g/dL (3.5-5.0); Alkaline Phosphatase 60 U/L (38-126); Anion Gap 7 mmol/L; Blood Urea Nitrogen 8 mg/dL (7-17); Calcium 9.8 mg/dL (8.4-10.2); Carbon Dioxide 24 mmol/L (22-30); Chloride 103 mmol/L (98-107); Glucose 92 mg/dL (74-99); Lipase 36 U/L (23-300); Non-African American GFR(CKD) >90 (>60 ml/min/1.73 sqM); Potassium 3.9 mmol/L (3.5-5.1); Sodium 134 mmol/L (137-145); Total Bilirubin 1.1 mg/dL (0.2-1.3); Total Protein 6.5 g/dL (6.3-8.2)
[2020-05-27 11:35] LABS: Appearance,Urine Cloudy (Clear); Bacteria,Urine Occasional /hpf; Color,Urine Amber; Mucus,Urine Few /hpf; RBC,Urine 2 /hpf (0-5); Squamous Epithelial Cell,Urine 14 /hpf (0-4); WBC,Urine 8 /hpf (0-5)
[2020-05-27 11:36] LABS: Bilirubin,Urine Negative (Negative); Blood,Urine Negative (Negative); Glucose,Urine (UA) Negative (Negative); Ketones,Urine Negative (Negative); Leukocyte Esterase,Urine Large (Negative); Nitrite,Urine Negative (Negative); Protein,Urine 1+ (Negative); Specific Gravity,Urine 1.015 (1.001-1.035)
--- NOTE | 2020-05-27 11:56 | US ---
EXAMINATION TYPE: Ultrasound OB <= 40 week fetus DATE OF EXAM: 05/27/2020 11:27 AM COMPARISON: 04/30/2020 CLINICAL HISTORY: 34-year-old female pain. Cramping EXAM PERFORMED: Transabdominal (TA) FINDINGS: EXAM MEASUREMENTS: GESTATIONAL AGE / DATING Physician Established: Not yet established Dates by LMP: (11 weeks/0 days) EDC: 12/16/2020 Dates by First Scan: (11 weeks/0 days) EDC: 12/16/2020 Dates by Current Scan for: (11 weeks/3 days) EDC: 12/13/2020 MATERNAL ANATOMY Uterus: 11.4 x 8.4 x 8.2 cm Right Ovary: Could not be visualized Left Ovary: 3.3 x 3.1 x 3.1 Post CDS / Adnexa: wnl Presence of free fluid: no Presence of corpus luteal cyst: no Presence of subchorionic bleed: no GESTATION / SURVEY CRL: 4.67 cm (11 weeks/3 days) Heart Rate: 157 bpm Rhythm: Normal IUP: Viable IUP IMPRESSION: 1. Single live intrauterine with estimated gestational age of 11 weeks 0 days by LMP and by first ultrasound. Current ultrasound biometry is concordant (11 weeks 3 days) by crown-rump length. 2. Complete survey recommended at 18-20 weeks.
[2020-05-27 12:40] VITALS: BP 112/78
== END 2020-05-27 12:40 | disposition home or self-care (01) ==
LOC: EC 10:07
DX: O23.41 Unspecified infection of urinary tract in pregnancy, first trimester (principal); O99.511 Diseases of the respiratory system complicating pregnancy, first trimester; J45.909 Unspecified asthma, uncomplicated; Z3A.11 11 weeks gestation of pregnancy; Z88.5 Allergy status to narcotic agent; Z88.0 Allergy status to penicillin
CPT/HCPCS: 99284 ×2; 96374 ×2; 96361 ×2; 36415; 80053; 83605; 83690; 85025; 81001; 76801; J2765

== ENCOUNTER 2020-06-06 14:41 | Outpatient (CLI) | payer BC ==
[2020-06-06] MEDS ORDERED: ONDANSETRON 4 MG/2 ML VIAL IVP STA (14:52)
[2020-06-06] MEDS: LACTATED RINGERS 1,000 ML IV SCH ×2 (15:13→17:18)
[2020-06-06 16:18] LABS: Appearance,Urine Clear (Clear); Bacteria,Urine Rare /hpf; Bilirubin,Urine Negative (Negative); Blood,Urine Negative (Negative); Calcium Oxalate Crystals,Urine Rare /hpf; Color,Urine Yellow; Glucose,Urine (UA) Negative (Negative); Hyaline Casts,Urine 4 /lpf (0-2); Ketones,Urine 2+ (Negative); Leukocyte Esterase,Urine Small (Negative); Mucus,Urine Many /hpf; Nitrite,Urine Negative (Negative); PH, Urine 5.5 (5.0-8.0); Protein,Urine 1+ (Negative); RBC,Urine 1 /hpf (0-5); Specific Gravity,Urine 1.028 (1.001-1.035); Squamous Epithelial Cell,Urine 3 /hpf (0-4); WBC,Urine 3 /hpf (0-5)
[2020-06-06] MEDS ORDERED: FAMOTIDINE 20 MG/2 ML VIAL IV ONE (17:04)
[2020-06-06] MEDS ORDERED: LORATADINE 10 MG TAB PO STA (18:17)
--- NOTE | 2020-06-06 21:15 | P.MSEPDOC ---
Presenting Problems - Arrival Data Date of Arrival on Unit: 06/06/20 Time of Arrival on Unit: 14:41 Mode of Transport: Ambulatory - Complaint OB-Reason for Admission/Chief Complaint: Acute Nausea/Vomiting Comment: Hyperemesis, 12 3/7wk, sent from office by Dr. Musa c\script for IV fluids, zofran and UA Medical History - Gestational Age Gestational Age by DONG (wks/days): 12 Weeks and 3 Days Review of Systems - Review of Systems Constitutional: No problems Breast: No problems ENT: No problems Cardiovascular: No problems Respiratory: No problems Gastrointestinal: No problems Genitourinary: No problems Musculoskeletal: No problems Neurological: No problems Skin: No problems Disposition - Disposition OB Disposition: Triage Discharge Date: 06/06/20 Discharge Time: 20:45 I agree with the RN Medical Screening Exam: Yes Risk & Benefit of care provided described in d/c instruction: Yes Diagnosis: MILD HYPEREMESIS GRAVIDARUM
== END 2020-06-06 20:45 | disposition home or self-care (01) ==
LOC: FBPOP 14:41
PROVIDERS: ATTEND Obstetrics & Gynecology
DX: O21.0 Mild hyperemesis gravidarum (principal); Z3A.12 12 weeks gestation of pregnancy
CPT/HCPCS: 96361; 96374; 96375; 81001; J2405

== ENCOUNTER 2020-06-20 16:20 | Inpatient (IN) | payer BC ==
[2020-06-20] MEDS ORDERED: ONDANSETRON 4 MG/2 ML VIAL IVP STA (16:42)
[2020-06-20] MEDS: LACTATED RINGERS 1,000 ML IV SCH ×3 (17:00→17:49)
[2020-06-20 17:32] LABS: ALT 24 U/L (4-34); African American GFR (CKD) >90 (>60 ml/min/1.73 sqM); Anion Gap 9 mmol/L; Blood Urea Nitrogen 5 mg/dL (7-17); Calcium 9.9 mg/dL (8.4-10.2); Carbon Dioxide 23 mmol/L (22-30); Chloride 103 mmol/L (98-107); Glucose 95 mg/dL (74-99); Non-African American GFR(CKD) >90 (>60 ml/min/1.73 sqM); Potassium 3.9 mmol/L (3.5-5.1); Sodium 135 mmol/L (137-145); Total Bilirubin 1.3 mg/dL (0.2-1.3)
[2020-06-20 17:33] LABS: AST 34 U/L (14-36); Alkaline Phosphatase 69 U/L (38-126)
[2020-06-20 17:56] LABS: Appearance,Urine Turbid (Clear); Bilirubin,Urine Negative (Negative); Blood,Urine Negative (Negative); Color,Urine Light Brown; Glucose,Urine (UA) Negative (Negative); Hyaline Casts,Urine 28 /lpf (0-2); Ketones,Urine 2+ (Negative); Leukocyte Esterase,Urine Moderate (Negative); Mucus,Urine Many /hpf; Nitrite,Urine Negative (Negative); PH, Urine 5.5 (5.0-8.0); Protein,Urine 1+ (Negative); Specific Gravity,Urine 1.031 (1.001-1.035); Squamous Epithelial Cell,Urine 3 /hpf (0-4); WBC,Urine 5 /hpf (0-5)
[2020-06-20 18:06] LABS: Basophils % (A) 0 %; Eosinophils # (A) 0.1 k/uL (0-0.7); Eosinophils % (A) 1 %; HCT 43.9 % (34.0-46.0); HGB 15.5 gm/dL (11.4-16.0); Lymphocytes # (A) 1.8 k/uL (1.0-4.8); Lymphocytes % (A) 19 %; MCHC 35.3 g/dL (31.0-37.0); MCV 84.9 fL (80.0-100.0); Mean Platelet Volume 7.5; Monocytes # (A) 0.5 k/uL (0-1.0); Monocytes % (A) 5 %; Neutrophils # (A) 7.1 k/uL (1.3-7.7); Neutrophils % (A) 74 %; Platelet Count 273 k/uL (150-450); RBC 5.18 m/uL (3.80-5.40); RDW 12.9 % (11.5-15.5); WBC 9.5 k/uL (3.8-10.6)
[2020-06-20] MEDS ORDERED: MAG HYDROX/AL HYDROX/SIMETH 30 ML CUP PO STA (19:21)
[2020-06-20] MEDS ORDERED: FAMOTIDINE 20 MG/2 ML VIAL IV PRN (20:57)
--- NOTE | 2020-06-20 21:20 | P.HPOB ---
History of Present Illness H&P Date: 06/20/20 Chief Complaint: Hyperemesis This is a 34-year-old female 2 para 0 with an estimated date of confinement of 12/16/2020, estimated gestational age of 14-2/7 weeks, who presents to labor and delivery with complaints of being unable to hold anything down for the least the last 3 days. She has had nausea and vomiting ever since she found out she was . She has been to ER multiple times and has received IV hydration, IV Zofran, IV Pepcid without much help. She did try Unisom and vitamin B6 initially and this did not work for her. She has tried oral Zofran and and oral Phenergan without any success. She states that she is not necessarily nauseated but assuming she tries to eat something it comes right up. She states she feels like something catches in her throat and makes her want to vomit. She was being worked up for this problem by ENT prior to but was unable to complete any further studies due to . She stated that they wanted to do a barium swallow test on her. She was admitted to triage 2 weeks ago and given 2 L of fluid along with IV Pepcid. She felt better but as soon as she left the hospital she started vomiting again. She has held food down intermittently over these 2 weeks but for the last 3 days has not held down anything including water. She is therefore being admitted for continued IV hydration along with IV steroid treatment. Obstetrical history: . History of 1 miscarriage in January of this year with a twin gestation. Gynecologic history: No history of sexual transmitted diseases. Social history: She is single. She works at [employer]. Review of Systems Constitutional: Denies chills, Denies fever Eyes: denies blurred vision, denies pain Ears, nose, mouth and throat: Reports nasal congestion Cardiovascular: Denies chest pain, Denies shortness of breath Respiratory: Denies cough Gastrointestinal: Reports dyspepsia, Reports heartburn, Reports nausea, Reports vomiting Genitourinary: Reports Musculoskeletal: Denies myalgias Integumentary: Denies pruritus, Denies rash Neurological: Reports headaches, Denies numbness, Denies weakness Psychiatric: Reports depression Past Medical History Past Medical History: Asthma, Neurologic Disorder (Migraines) Additional Past Medical History / Comment(s): RECENT MISSED AB History of Any Multi-Drug Resistant Organisms: None Reported Past Surgical History: Breast Surgery, Orthopedic Surgery, Tonsillectomy Additional Past Surgical History / Comment(s): CYST REMOVED RT WRIST. LT HEEL SPUR REMOVED. BREAST REDUCTION. CTR-RT HAND Past Anesthesia/Blood Transfusion Reactions: Motion Sickness, Postoperative Nausea & Vomiting (PONV) Past Psychological History: Depression Smoking Status: Never smoker Past Alcohol Use History: None Reported Past Drug Use History: None Reported - Past Family History Mother Family Medical History: No Reported History Medications and Allergies Home Medications Medication Instructions Recorded Confirmed Type Cholecalciferol [Vitamin D3 (25 5,000 unit PO DAILY 05/27/20 06/20/20 History Mcg = 1000 Iu)] Multivitamin [Multivitamins Adult 2 tab PO DAILY 05/27/20 06/20/20 History Gummies] Promethazine [Phenergan] 06/20/20 History Allergies Allergy/AdvReac Type Severity Reaction Status Date / Time codeine Allergy Unknown Verified 06/20/20 16:37 Childhood Penicillins Allergy Unknown Verified 06/20/20 16:37 Childhood Exam Osteopathic Statement: *. No significant issues noted on an osteopathic structural exam other than those noted in the History and Physical/Consult. Intake and Output 06/20/20 06/20/20 06/20/20 06:59 14:59 22:59 Other: Weight 94.347 kg Gen.: Well-developed well-nourished female in no acute distress HEENT: Normal appearing mucous membranes Heart: Regular rate and rhythm Lungs: Clear to auscultation bilaterally Abdomen: , nontender Extremities: Negative Homans Results Result Diagrams: 06/20/20 16:55 06/20/20 16:55 Abnormal Lab Results - Last 24 Hours (Table) 06/20/20 06/20/20 Range/Units 16:55 16:55 Sodium 135 L (137-145) mmol/L BUN 5 L (7-17) mg/dL Urine Appearance Turbid H (Clear) Urine Protein 1+ H (Negative) Urine Ketones 2+ H (Negative) Ur Leukocyte Esterase Moderate H (Negative) Hyaline Casts 28 H (0-2) /lpf Urine Mucus Many H (None) /hpf Assessment and Plan (1) Hyperemesis gravidarum Current Visit: Yes Status: Acute Code(s): O21.0 - MILD HYPEREMESIS GRAVIDARUM SNOMED Code(s): 53113311 (2) Dehydration with hyponatremia Current Visit: Yes Status: Acute Code(s): E86.0 - DEHYDRATION; E87.1 - HYPO- OSMOLALITY AND HYPONATREMIA SNOMED Code(s): 74777546 Plan: Will admit and give IV steroids since she is not responding to any other antiemetics or other first-line treatments. Will consult medicine for any further input regarding steroids and any other suggestions for treatment. If she does well on the steroids, will taper to oral steroids after 24-48 hours.
[2020-06-20] MEDS: methylPREDNISolone SOD SUCCI 40 MG/ML 1 ML VIAL IV SCH (21:53)
[2020-06-21] MEDS: LACTATED RINGERS 1,000 ML IV SCH ×5 (02:09→21:29)
[2020-06-21] MEDS: methylPREDNISolone SOD SUCCI 40 MG/ML 1 ML VIAL IV SCH ×3 (05:53→21:30)
[2020-06-21] MEDS: ACETAMINOPHEN TAB 325 MG TAB PO PRN ×2 (06:09→14:24)
[2020-06-21] MEDS ORDERED: FAMOTIDINE 20 MG TAB PO SCH (09:00)
--- NOTE | 2020-06-21 09:05 | P.PN ---
Progress Note - Text Progress Note Date: 06/21/20 Madonna did vomit earlier this morning after taking a Tylenol. She did however receive her breakfast tray and did eat some eggs that so far has stayed down. She stated that this is the most she has eaten in a long time that has stayed down. Otherwise she denies any extreme pain or nausea. She did have a headache earlier this morning. Impression is hyperemesis gravidarum, intrauterine at 14 weeks. Plan is to continue with IV steroids for up to 48 hours and then taper with oral steroids. Will await medicine input. Dr. Cortes will be covering in my absence starting later this afternoon through the weekend.
[2020-06-21] MEDS: LORATADINE 10 MG TAB PO SCH (09:22)
[2020-06-21 15:11] VITALS: BMI 35.6
[2020-06-21] MEDS ORDERED: ONDANSETRON 4 MG/2 ML VIAL IVP PRN (17:55)
--- NOTE | 2020-06-21 18:01 | P.CONS ---
History of Present Illness - Reason for Consult Consult date: 06/21/20 Medical management - Chief Complaint Nausea and vomiting - History of Present Illness This is a 34-year-old female 14 weeks of was currently admitted to the [facility] floor with nausea and vomiting. I was asked to see her for further management. Patient said that she's been having persistent nausea and vomiting and is unable to keep anything down. She denies any abdominal pa in. She said that she also feels nauseous without eating anything and as soon as she eats she vomits immediately. Patient's report feeling food being stuck in her throat or behind her breast bone. She never had similar problems in the past prior to this . She said that her last was a miscarriage and was associated with severe nausea and vomiting as well. Apparently, patient tried different and I am admitting including Zofran, Phenergan, and Reglan with minimal relief. I was asked to see her for further management. Review of Systems Review of system: 14 points review of systems were obtained and were negative except to what were mentioned in the HPI. Past Medical History Past Medical History: Asthma, Neurologic Disorder Additional Past Medical History / Comment(s): RECENT MISSED AB History of Any Multi-Drug Resistant Organisms: None Reported Past Surgical History: Breast Surgery, Orthopedic Surgery, Tonsillectomy Additional Past Surgical History / Comment(s): CYST REMOVED RT WRIST. LT HEEL SPUR REMOVED. BREAST REDUCTION. CTR-RT HAND Past Anesthesia/Blood Transfusion Reactions: Motion Sickness, Postoperative Nausea & Vomiting (PONV) Past Psychological History: Depression Smoking Status: Never smoker Past Alcohol Use History: None Reported Past Drug Use History: None Reported - Past Family History Mother Family Medical History: No Reported History Medications and Allergies Home Medications Medication Instructions Recorded Confirmed Type Cholecalciferol [Vitamin D3 (25 5,000 unit PO DAILY 05/27/20 06/20/20 History Mcg = 1000 Iu)] Multivitamin [Multivitamins Adult 2 tab PO DAILY 05/27/20 06/20/20 History Gummies] Promethazine [Phenergan] 06/20/20 History Allergies Allergy/AdvReac Type Severity Reaction Status Date / Time codeine Allergy Unknown Verified 06/20/20 16:37 Childhood Penicillins Allergy Unknown Verified 06/20/20 16:37 Childhood Physical Exam Vitals: Vital Signs Temp Pulse Resp BP Pulse Ox 06/21/20 15:07 98.3 F 90 16 115/68 98 06/21/20 06:00 97.9 F 88 16 112/70 97 06/20/20 22:20 96.6 F L 82 16 107/58 97 06/20/20 20:55 97.3 F L 86 16 112/67 97 Intake and Output 06/21/20 06/21/20 06/21/20 06:59 14:59 22:59 Other: # Voids 2 2 Weight 94.347 kg General: The patient is awake and alert, in no distress Eye: there is normal conjunctiva bilaterally. Neck: The neck is supple, there is no JVD. Cardiovascular: Normal S1-S2, no S3-S4, no murmurs. Respiratory: Lungs clear to auscultation bilaterally Gastrointestinal: Abdomen is soft, nontender Musculoskeletal: There is no pedal edema. Neurological:. Speech is normal. Skin: Skin is warm and dry Results CBC & Chem 7: 06/20/20 16:55 06/20/20 16:55 Labs: Abnormal Lab Results - Last 24 Hours (Table) 06/20/20 Range/Units 16:55 Urine Appearance Turbid H (Clear) Urine Protein 1+ H (Negative) Urine Ketones 2+ H (Negative) Ur Leukocyte Esterase Moderate H (Negative) Hyaline Casts 28 H (0-2) /lpf Urine Mucus Many H (None) /hpf Assessment and Plan Assessment: 1. Nausea and vomiting of : Patient failed multiple antihistamine taken the outpatient setting. Patient was started on IV steroids and Pepcid but reports minimal relief. I would increase Pepcid to twice daily. Add Benadryl 25 mg IV every 6 hours scheduled for the next 24 hours. IV Zofran as needed every 6 hours. If symptoms not improving recommend bowel rest and nothing by mouth for 24 hours. 2. Dysphagia, awaiting bedside swallow study. Probably not favorable to do a barium swallow study on this patient. If symptoms not improving within the next 24-48 hours may consult GI 3. Hypovolemic hyponatremia, mild, on IV fluid hydration. Recheck BMP in the morning. Check magnesium and phosphorus as well in the morning We'll continue to follow with you
[2020-06-21] MEDS: diphenhydrAMINE 50 MG/ML 1 ML VIAL IVP SCH (18:44)
[2020-06-21] MEDS: FAMOTIDINE 20 MG/2 ML VIAL IV SCH (21:31)
[2020-06-22] MEDS: diphenhydrAMINE 50 MG/ML 1 ML VIAL IVP SCH ×4 (00:37→19:23)
[2020-06-22 06:14] LABS: African American GFR (CKD) >90 (>60 ml/min/1.73 sqM); Anion Gap 5 mmol/L; Blood Urea Nitrogen 3 mg/dL (7-17); Calcium 9.1 mg/dL (8.4-10.2); Carbon Dioxide 27 mmol/L (22-30); Chloride 105 mmol/L (98-107); Glucose 116 mg/dL (74-99); Magnesium 1.6 mg/dL (1.6-2.3); Non-African American GFR(CKD) >90 (>60 ml/min/1.73 sqM); Phosphorus 3.3 mg/dL (2.5-4.5); Potassium 4.2 mmol/L (3.5-5.1); Sodium 137 mmol/L (137-145)
[2020-06-22] MEDS: ACETAMINOPHEN TAB 325 MG TAB PO PRN (06:26)
[2020-06-22] MEDS: methylPREDNISolone SOD SUCCI 40 MG/ML 1 ML VIAL IV SCH ×3 (06:27→21:17)
[2020-06-22] MEDS: FAMOTIDINE 20 MG/2 ML VIAL IV SCH ×2 (08:29→21:17)
[2020-06-22] MEDS: LORATADINE 10 MG TAB PO SCH (08:54)
--- NOTE | 2020-06-22 10:20 | P.PN ---
Subjective Progress Note Date: 06/22/20 Patient told me that she is not feeling any better today and about the same compared to yesterday. Yesterday she was telling me that she is unable to keep anything down and she was vomiting anything she would eat. This morning she informed me that she had an egg, a fruit bowl, and a protein shake for breakfast with no nausea or vomiting. I assumed that means that she is feeling better that she said that this is a same as yesterday. Objective - Vital Signs Vital signs: Vital Signs Temp 97.2 F L 06/22/20 08:00 Pulse 82 06/22/20 08:00 Resp 16 06/22/20 08:00 BP 106/64 06/22/20 08:00 Pulse Ox 99 06/22/20 00:00 Intake & Output 06/21/20 06/22/20 06/22/20 18:59 06:59 18:59 Weight 94.347 kg Other: # Voids 2 2 - Exam General: The patient is awake and alert, in no distress Eye: there is normal conjunctiva bilaterally. Neck: The neck is supple, there is no JVD. Cardiovascular: Normal S1-S2, no S3-S4, no murmurs. Respiratory: Lungs clear to auscultation bilaterally Gastrointestinal: Abdomen is soft, nontender Musculoskeletal: There is no pedal edema. Neurological:. Speech is normal. Skin: Skin is warm and dry - Labs CBC & Chem 7: 06/20/20 16:55 06/22/20 05:40 Labs: Abnormal Lab Results - Last 24 Hours (Table) 06/22/20 Range/Units 05:40 BUN 3 L (7-17) mg/dL Glucose 116 H (74-99) mg/dL Assessment and Plan Assessment: 1. Nausea and vomiting of : Patient failed multiple antiemetic in the outpatient setting. Patient was started on IV steroids and Pepcid but reports minimal relief. I would increase Pepcid to twice daily. I Added Benadryl 25 mg IV every 6 hours scheduled for the next 24 hours. IV Zofran as needed every 6 hours. Symptoms appeared improving to me. If symptoms not improving recommend bowel rest and nothing by mouth for 24 hours. 2. Dysphagia, awaiting bedside swallow study. Probably not favorable to do a barium swallow study on this patient. 3. Hypovolemic hyponatremia, mild, resolved with IV fluid hydration Patient was counseled that coping is part of the remedy as she already tried all antiemetic in the book with minimal relief. She is reporting that Reglan made her feel ''weird''which is not a true adverse effect of the medication. I encouraged her to give Reglan another trial as he may work best for her symptoms I encouraged the patient to the heat small and frequent meals. She will her food-related extra prior to swallowing. I also encouraged her to drink protein shake in between meals I asked her to try to figure out what worked best for her with her eats pured diet If symptoms is not improving may consider GI consultation Thank you for allowing me to participate in the care of this patient
--- NOTE | 2020-06-22 11:41 | P.PN ---
Progress Note - Text Progress Note Date: 06/22/20 Madonna and I had a very long discussion this morning about her current symptoms. She relates that this morning she has not thrown up. She did have a couple bites of an egg and some fruit as well as an Essure this morning. She relates that yesterday during morning a similar occurrence happen where she didn't throughout until after lunch at which time she throughout basically everything that she tried eat. She has lost approximately 30-32 pounds already early in this . In seeing her today however, and this is the first time I've seen her, her skin turgor is good she does not appear to be grossly dehydrated and she is in good spirits. It is unclear if it is the steroids that is helping or if there is some other underlying issues it is either improving or stabilizing that is making her at least at this time appear in no acute distress. Her lab studies have been evaluated by internal medicine and at this time are stable. We will run TSH with reflex T4 as precaution as I don't believe this is been done thus far. She have discussed consultation GI as medicine recommended that consultation next were unable to resolve her hyperemesis. She is at the point where she is running close to the 48 hour ken on the IV steroids and tapering dose of prednisone has been ordered to start tomorrow. Overall her vital signs are stable and she is afebrile. She is ambulating she is voiding and she voices essentially no other significant concerns this time. Other considerations do include potential referral to psychiatry. The main purpose however of writing for GI is in case she does need to go home on some type of IV nutrition a PICC line may be needed. All questions are answered for her at this time. Her vital signs are otherwise stable and afebrile. As I am not completely familiar with her case I tried review is much as possible what has been tried and what hasn't succeeded in helping her even a little bit and it does appear at this time that virtually everything we tried has had at least to 1 or another some type of failure and even when she does feel better with the antiemetics it is not lasting.
--- NOTE | 2020-06-22 14:26 | US ---
EXAMINATION TYPE: US gallbladder DATE OF EXAM: 06/22/2020 COMPARISON: NONE CLINICAL HISTORY: hyperemesis. Patient is 14 weeks , intermittent abdomen pain and N/V x 7 we eks EXAM MEASUREMENTS: Liver Length: 14.3 cm Gallbladder Wall: 0.2 cm CBD: 0.3 cm Right Kidney: 11.3 x 4.7 x 5.7 cm Pancreas: Normal as visualized. Liver: Normal. Gallbladder: Cholelithiasis. No gallbladder wall thickening or pericholecystic edema. Electrical Power Engineer reports positive sonographic Sun sign. CBD: Normal. Right Kidney: Normal. IMPRESSION: Cholelithiasis. No gallbladder wall thickening or pericholecystic edema to suggest acute cholecystiti s. However utility manager did report positive sonographic Sun sign. Recommend correlation with physic al exam.
[2020-06-22] MEDS: LACTATED RINGERS 1,000 ML IV SCH (19:23)
[2020-06-23] MEDS: diphenhydrAMINE 50 MG/ML 1 ML VIAL IVP SCH ×2 (03:49→05:36)
[2020-06-23] MEDS: FAMOTIDINE 20 MG/2 ML VIAL IV SCH (08:19)
[2020-06-23] MEDS: LORATADINE 10 MG TAB PO SCH (08:19)
[2020-06-23] MEDS ORDERED: predniSONE 20 MG TAB PO SCH (09:00)
[2020-06-23] MEDS: PANTOPRAZOLE 40 MG TABLET PO SCH ×2 (10:26→18:32)
[2020-06-23] MEDS: PROCHLORPERAZINE 10 MG TAB PO SCH ×3 (10:26→23:57)
[2020-06-23] MEDS: PYRIDOXINE 100 MG/ML 1 ML VIAL IVP SCH (10:26)
--- NOTE | 2020-06-23 10:45 | P.DS ---
Providers Date of admission: 06/22/20 15:36 Expected date of discharge: 06/23/20 Attending physician: Daniela Musa Consults: 06/20/20 21:05 Consult Physician Routine Consulting Provider: Nataly Oneill Consult Reason/Comments: Severe hyperemesis, vomiting Do you want consulting provider notified?: Yes, Notify in am 06/22/20 11:36 Consult Physician Urgent Consulting Provider: Onelia Santana Consult Reason/Comments: hyperemsis Do you want consulting provider notified?: Yes Primary care physician: Stated None Hospital Course: Brain is doing much better today. She relates that since last night she's been able tolerate food much better. She is eating breakfast this morning and she is tolerated and has not thrown up. Her dehydration seems to be resolved and overall her mood and outlook are significantly improved. We'll plan following consultation by GI is lungs are fine with it to discharge her to home today with restriction for continued tapering dose of prednisone and what other changes that the GI feels are necessary to try and keep her from having to come back to the hospital due to her hyperemesis. Ultrasound was reviewed and shows cholelithiasis. It was reiterated to her about the importance of the bland diet low-fat diet due to this as this may cause her pain to also worsen. On physical exam heart regular, lungs clear, extremities are without pain. Abdomen is soft and positive bowel sounds are noted Assessment hyperemesis and cholelithiasis Plan discharged home later today if at all possible. She is instructed to follow up with Dr. Ceron at her normal appointment, however should she have worsening of the nausea she should either return or see Dr. Ceron earlier than 07/04/20 Patient Condition at Discharge: Good Plan - Discharge Summary New Discharge Prescriptions: No Action Multivitamin [Multivitamins Adult Gummies] 2 tab PO DAILY Cholecalciferol [Vitamin D3 (25 Mcg = 1000 Iu)] 5,000 unit PO DAILY Promethazine [Phenergan] Discharge Medication List Cholecalciferol [Vitamin D3 (25 Mcg = 1000 Iu)] 5,000 unit PO DAILY 05/27/20 [History] Multivitamin [Multivitamins Adult Gummies] 2 tab PO DAILY 05/27/20 [History] Promethazine [Phenergan] 06/20/20 [History] Follow up Appointment(s)/Referral(s): Daniela Musa DO [Doctor of Osteopathic Medicine] - 07/04/20 Activity/Diet/Wound Care/Special Instructions: Recommend very bland diet bread/toast/RiceE foods or other things that might trigger your nausea response Discharge Disposition: HOME SELF-CARE
[2020-06-23] MEDS: LACTATED RINGERS 1,000 ML IV SCH (16:57)
[2020-06-23 17:28] VITALS: RESP 16
--- NOTE | 2020-06-23 19:29 | P.CONS ---
History of Present Illness - Reason for Consult Consult date: 06/23/20 hyperemesis gravidarum Requesting physician: Elder Cortes - Chief Complaint nausea and vomiting, decreased oral intake - History of Present Illness 34-year-old female currently in her 14th week of presented to the hospitaldue to complaints of nausea and vomiting. The patient reported frequent episodes of nausea and vomiting and has been unable to tolerate oral intake. She has lost weight during her . She reports difficulty swallowing and episodes of frequent vomiting after eating. She has tried to maintain a bland diet but has continued to have symptoms. The patient had been tried on multiple medications in the outpatient setting including Zofran, Phenergan, vitamin B6 and Reglan with little relief. She denies any heartburn or reflux. She has been having the sensation of globus and proximal esophageal food stickingwhich is been present even prior to her . She had been evaluated by the ENT service. Currently the patient is being treated withPepcid therapy and Zofran therapy. She denies any abdominal pain. 34-year-old female 14 weeks of was currently admitted to the [facility] floor with nausea and vomiting. I was asked to see her for further management. Patient said that she's been having persistent nausea and vomiting and is unable to keep anything down. She denies any abdominal pain. She said that she also feels nauseous without eating anything and as soon as she eats she vomits immediately. Patient's report feeling food being stuck in her throat or behind her breast bone. She never had similar problems in the past prior to this . She said that her last was a miscarriage and was associated with severe nausea and vomiting as well. Apparently, patient tried different and I am admitting including Zofran, Phenergan, and Reglan with minimal relief. I was asked to see her for further management. Review of Systems REVIEW OF SYSTEMS: CONSTITUTIONAL: Denies any fevers, chills, weight change or fatigue. CARDIOVASCULAR: Denies any chest pain, palpitations high or low blood pressures RESPIRATORY: Denies any shortness of breath, hemoptysis or cough. GENITOURINARY: No dysuria or hematuria. MUSCULOSKELETAL: No weakness reported. SKIN: Denies any new rashes or lesions, jaundice or pallor. PSYCHIATRIC: Denies any depression or anxiety. NEUROLOGY: Denies headache, denies any new focal deficits. EARS/NOSE/THROAT: No recent hearing change, congestion, nasal discharge or sore throat. EYES: No pain in eyes, discharge or change in vision. GASTROINTESTINAL: As per HPI. Past Medical History Past Medical History: Asthma, Neurologic Disorder Additional Past Medical History / Comment(s): RECENT MISSED AB History of Any Multi-Drug Resistant Organisms: None Reported Past Surgical History: Breast Surgery, Orthopedic Surgery, Tonsillectomy Additional Past Surgical History / Comment(s): CYST REMOVED RT WRIST. LT HEEL SPUR REMOVED. BREAST REDUCTION. CTR-RT HAND Past Anesthesia/Blood Transfusion Reactions: Motion Sickness, Postoperative Nausea & Vomiting (PONV) Past Psychological History: Depression Smoking Status: Never smoker Past Alcohol Use History: None Reported Past Drug Use History: None Reported - Past Family History Mother Family Medical History: No Reported History Medications and Allergies Home Medications Medication Instructions Recorded Confirmed Type Cholecalciferol [Vitamin D3 (25 5,000 unit PO DAILY 05/27/20 06/20/20 History Mcg = 1000 Iu)] Multivitamin [Multivitamins Adult 2 tab PO DAILY 05/27/20 06/20/20 History Gummies] Promethazine [Phenergan] 06/20/20 History Allergies Allergy/AdvReac Type Severity Reaction Status Date / Time codeine Allergy Unknown Verified 06/20/20 16:37 Childhood Penicillins Allergy Unknown Verified 06/20/20 16:37 Childhood Physical Exam Vitals: Vital Signs Temp Pulse Resp BP 06/23/20 08:00 97.2 F L 62 13 100/59 06/23/20 03:43 97.0 F L 85 16 113/68 06/22/20 20:00 97.5 F L 83 16 110/56 06/22/20 16:00 98.2 F 80 14 115/63 Intake and Output 06/22/20 06/23/20 06/23/20 22:59 06:59 14:59 Other: # Voids 1 1 On physical examination, patient appears comfortable in no apparent distress. HEAD: Normocephalic, atraumatic. EYES: No scleral icterus. No conjunctival injection. MOUTH: No lesions, tongue midline. NECK: Trachea midline, no gross abnormalities. CHEST: Clear to auscultation with no wheezing or rhonchi appreciated. HEART: Regular rate and rhythm. ABDOMEN: Soft, , mildly tender to palpation. Bowel sounds are positive. No organomegaly. No guarding or rigidity. EXTREMITIES: No pedal edema. SKIN: No rashes, no jaundice. NEUROLOGIC: Alert and oriented x3. No focal deficits. Results CBC & Chem 7: 06/20/20 16:55 06/22/20 05:40 US - abdomen: report reviewed (ultrasound of the abdomen with findings of cholelithiasis with mild CBD dilation or evidence of cholecystitis.) Assessment and Plan (1) Hyperemesis gravidarum Narrative/Plan: 4-year-old female currently in her 14th week of admitted for nausea, vomiting secondary to hyperemesis gravidarum. Failed outpatient treatment with multiple medications tried. Currently feeling somewhat better. Patient may have a component of uncontrolled reflux disease as she has been suffering from globus and food sticking in the outpatient setting even prior to her . Current Visit: Yes Status: Acute Code(s): O21.0 - MILD HYPEREMESIS GRAVIDARUM SNOMED Code(s): 25894596 Plan: supportive care Okay for diet as tolerated Patient may benefit from PPI therapy with Protonix 40 mg added, can be discharged on daily medication Continue antiemetic therapy withvitamin B6, Compazine and Zofran Other medical management as per the [facility] service Thank you for allowing us to participate in the care of the patient
[2020-06-24 07:39] VITALS: BP 104/61; PULSE 72; TEMP 97.8
[2020-06-24] MEDS: PANTOPRAZOLE 40 MG TABLET PO SCH (08:07)
[2020-06-24] MEDS: PROCHLORPERAZINE 10 MG TAB PO SCH (08:07)
--- NOTE | 2020-06-24 08:55 | P.DS ---
Providers Date of admission: 06/22/20 15:36 Expected date of discharge: 06/24/20 Attending physician: Daniela Musa Consults: 06/20/20 21:05 Consult Physician Routine Consulting Provider: Nataly Oneill Consult Reason/Comments: Severe hyperemesis, vomiting Do you want consulting provider notified?: Yes, Notify in am 06/22/20 11:36 Consult Physician Urgent Consulting Provider: Onelia Santana Consult Reason/Comments: hyperemsis Do you want consulting provider notified?: Yes Primary care physician: Stated None - Discharge Diagnosis(es) (1) Hyperemesis gravidarum Current Visit: Yes Status: Acute (2) Dehydration with hyponatremia Current Visit: Yes Status: Acute Hospital Course: This is a 34 Musa female 2 para 0 at 14-1/2 weeks who presented with nausea and vomiting and unable to hold anything down for almost 2 weeks. This is been ongoing since she found out she was . She had tried numerous outpatient treatments without success. She was given IV steroids and consultations were obtained from medicine and GI. She was diagnosed with some gallstones. So far she has not had any vomiting for the last 2 days and is held down all the food that she is tried to eat. She feels good and would like to go home. She was also started on Protonix by GI yesterday and has done well with it. She will be discharged home on a tapering steroid dosage. She will be on 20 mg of prednisone daily for 3 days starting today followed by 10 mg daily for 3 days and then 5 mg daily for 7 days. She is instructed to follow-up with me in the office as scheduled on the . She is advised to call or come back to the hospital if she has any further concerns. Patient Condition at Discharge: Good Plan - Discharge Summary New Discharge Prescriptions: New Loratadine [Claritin] 10 mg PO DAILY #30 tab predniSONE 10 mg PO DIRECTED 12 Days #11 tab Pantoprazole [Protonix] 40 mg PO DAILY #30 tablet. Continue Multivitamin [Multivitamins Adult Gummies] 2 tab PO DAILY Cholecalciferol [Vitamin D3 (25 Mcg = 1000 Iu)] 5,000 unit PO DAILY No Action Promethazine [Phenergan] Discharge Medication List Cholecalciferol [Vitamin D3 (25 Mcg = 1000 Iu)] 5,000 unit PO DAILY 05/27/20 [History] Multivitamin [Multivitamins Adult Gummies] 2 tab PO DAILY 05/27/20 [History] Promethazine [Phenergan] 06/20/20 [History] Loratadine [Claritin] 10 mg PO DAILY #30 tab 06/24/20 [Rx] Pantoprazole [Protonix] 40 mg PO DAILY #30 tablet. 06/24/20 [Rx] predniSONE 10 mg PO DIRECTED 12 Days #11 tab 06/24/20 [Rx] Follow up Appointment(s)/Referral(s): Daniela Musa DO [Doctor of Osteopathic Medicine] - 07/04/20 Activity/Diet/Wound Care/Special Instructions: Recommend very bland diet bread/toast/RiceE foods or other things that might trigger your nausea response Discharge Disposition: HOME SELF-CARE
[2020-06-24] MEDS ORDERED: predniSONE 20 MG TAB PO SCH (09:00)
[2020-06-24] MEDS: LORATADINE 10 MG TAB PO SCH (09:44)
[2020-06-24] MEDS: PYRIDOXINE 100 MG/ML 1 ML VIAL IVP SCH (09:45)
--- NOTE | 2020-06-24 09:45 | P.PN ---
Subjective Progress Note Date: 06/24/20 Principal diagnosis: hyperemesis The patient was seen and examined at the bedside. The patient denies any vomiting for 2 days. Denies any abdominal pain, nausea, or diarrhea. She had a bowel movement yesterday. She states she is tolerating her regular diet. Objective - Vital Signs Vital signs: Vital Signs Temp 97.8 F 06/24/20 07:38 Pulse 72 06/24/20 07:38 Resp 16 06/24/20 07:38 BP 104/61 06/24/20 07:38 Pulse Ox 99 06/22/20 00:00 Intake & Output 06/23/20 06/24/20 06/24/20 18:59 06:59 18:59 Other: # Voids 2 1 # Bowel Movements 1 - Exam General appearance: The patient is alert, oriented, in no acute distress. HET: Head is normocephalic and atraumatic. Neck: Supple without lymphadenopathy. Heart: S1 S2. Regular rate and rhythm. Lungs: Clear to auscultation Abdomen: Soft, nontender, nondistended with bowel sounds. Extremities: Normal skin color and turgor. Neurological: No focal deficits. - Labs CBC & Chem 7: 06/20/20 16:55 06/22/20 05:40 Assessment and Plan Assessment: (1) Hyperemesis gravidarum Narrative/Plan: 4-year-old female currently in her 14th week of admitted for nausea, vomiting secondary to hyperemesis gravidarum. Failed outpatient treatment with multiple medications tried. Currently feeling somewhat better. Patient may have a component of uncontrolled reflux disease as she has been suffering from globus and food sticking in the outpatient setting even prior to her . Current Visit: Yes Status: Acute Code(s): O21.0 - MILD HYPEREMESIS GRAVIDARUM SNOMED Code(s): 53661902 Plan: supportive care Okay for diet as tolerated Patient may benefit from PPI therapy with Protonix 40 mg added, can be discharged on daily medication Continue antiemetic therapy with vitamin B6, Compazine and Zofran Okay for discharge from GI, continue with Protonix 40 mg po QD with Pepcid 20mg HS Other medical management as per the [facility] service Thank you for allowing us to participate in the care of the patient The above dictated assessment and findings were discussed with Dr. Kuhn. The impression and plan of care have been directed as dictated.
== END 2020-06-24 13:15 | disposition home or self-care (01) | DRG 832 ==
LOC: FBPOP 16:20 → 4FBP 22:16 → OBSVTOIN 06-22 15:36
PROVIDERS: ADMIT Obstetrics & Gynecology; ATTEND Obstetrics & Gynecology
DX: O21.1 Hyperemesis gravidarum with metabolic disturbance (principal); O26.612 Liver and biliary tract disorders in pregnancy, second trimester; E86.0 Dehydration; E86.1 Hypovolemia; O99.282 Endocrine, nutritional and metabolic diseases complicating pregnancy, second trimester; J45.909 Unspecified asthma, uncomplicated; O99.512 Diseases of the respiratory system complicating pregnancy, second trimester; G43.909 Migraine, unspecified, not intractable, without status migrainosus; F32.9 Major depressive disorder, single episode, unspecified; O99.342 Other mental disorders complicating pregnancy, second trimester; R13.10 Dysphagia, unspecified; K80.20 Calculus of gallbladder without cholecystitis without obstruction; K21.9 Gastro-esophageal reflux disease without esophagitis; O09.522 Supervision of elderly multigravida, second trimester; O99.612 Diseases of the digestive system complicating pregnancy, second trimester; Z3A.14 14 weeks gestation of pregnancy; Z79.899 Other long term (current) drug therapy; Z87.59 Personal history of other complications of pregnancy, childbirth and the puerperium; Z98.890 Other specified postprocedural states; Z88.5 Allergy status to narcotic agent; Z88.0 Allergy status to penicillin; Z71.3 Dietary counseling and surveillance
CPT/HCPCS: 76705; 80048; 80053; 81001; 83735; 84100; 84443; 85025; 96361; 96374; 96375; 99214

== ENCOUNTER 2020-08-01 12:32 | Inpatient (IN) | payer BC ==
[2020-08-01] MEDS ORDERED: PANTOPRAZOLE 40 MG TABLET PO STA (13:00)
--- NOTE | 2020-08-01 13:12 | P.HPOB ---
History of Present Illness H&P Date: 08/01/20 Chief Complaint: Hyperemesis This is a 34-year-old female 2 para 0 with an estimated date of confinement of 12/16/2020, estimated gestational age of 20 weeks 3 days, presents to labor and delivery after being seen in the office today. She has been having vomiting every day which has worsened over the last 3 or 4 days. She is been unable to even hold down liquids for the last few days. She was hospitalized over a month ago and was given IV steroids followed by a oral taper of steroids. This did work very well for her and she was good for a few weeks after tapering off but now has returned to just as bad as she was before. She is not even able to hold on her vitamins. She has not been able to feel movement yet. She did have an ultrasound on Wednesday that showed normal anatomy however the profile and four-chamber heart were not completely visualized. She does have a follow-up ultrasound scheduled. She was seen by medicine and GI during her last admission. She was also noted to have gallstones on ultrasound during her last admission. Obstetrical history: . She has a history of 1 miscarriage in January 2020 and did require dilation and curettage. That was a twin gestation. 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 Social history: She is single involved with one partner. She works at [employer]. Review of Systems Constitutional: Reports fatigue, Denies chills, Denies fever Eyes: denies blurred vision, denies pain Ears, nose, mouth and throat: Denies headache, Denies sore throat Cardiovascular: Denies chest pain, Denies shortness of breath Respiratory: Denies cough Gastrointestinal: Reports nausea, Reports vomiting, Denies abdominal pain, Denies diarrhea Genitourinary: Reports , Denies pelvic pain Musculoskeletal: Denies myalgias Integumentary: Denies pruritus, Denies rash Neurological: Denies numbness, Denies weakness Psychiatric: Denies anxiety, Denies depression Past Medical History Past Medical History: Asthma, Neurologic Disorder (History of migraines) History of Any Multi-Drug Resistant Organisms: None Reported Past Surgical History: Breast Surgery, Orthopedic Surgery, Tonsillectomy Additional Past Surgical History / Comment(s): CYST REMOVED RT WRIST. LT HEEL SPUR REMOVED. BREAST REDUCTION. CTR-RT HAND. D&C Past Anesthesia/Blood Transfusion Reactions: Motion Sickness, Postoperative Nausea & Vomiting (PONV) Past Psychological History: Depression Smoking Status: Never smoker Past Alcohol Use History: None Reported Past Drug Use History: None Reported - Past Family History Mother Family Medical History: No Reported History Medications and Allergies Home Medications Medication Instructions Recorded Confirmed Type No Known Home Medications 08/01/20 08/01/20 History Allergies Allergy/AdvReac Type Severity Reaction Status Date / Time codeine Allergy Unknown Verified 08/01/20 12:38 Childhood Penicillins Allergy Unknown Verified 08/01/20 12:38 Childhood Exam Osteopathic Statement: *. No significant issues noted on an osteopathic structural exam other than those noted in the History and Physical/Consult. Vital Signs Temp Pulse Resp BP Pulse Ox 08/01/20 12:43 96.6 F L 105 H 16 107/71 96 Intake and Output 07/31/20 08/01/20 08/01/20 22:59 06:59 14:59 Other: Weight 90.265 kg Gen.: Well-developed well-nourished female in no acute distress HEENT: Within normal limits Heart: Regular rate and rhythm Lungs: Clear to auscultation bilaterally Abdomen: nontender, positive heart tones at 140s in the right lower quadrant Extremities: Negative Homans Assessment and Plan (1) Hyperemesis gravidarum Current Visit: No Status: Acute Code(s): O21.0 - MILD HYPEREMESIS GRAVIDARUM SNOMED Code(s): 48663999 Plan: Will admit for IV steroids followed by tapering dose of prednisone. We'll check CBC and complete metabolic panel. Activity as tolerated. Diet as tolerated.
[2020-08-01] MEDS: LACTATED RINGERS 1,000 ML IV SCH ×2 (13:13→17:29)
[2020-08-01 13:31] LABS: Basophils # (A) 0.1 k/uL (0-0.2); Basophils % (A) 1 %; Eosinophils # (A) 0.1 k/uL (0-0.7); Eosinophils % (A) 1 %; HCT 44.8 % (34.0-46.0); HGB 15.5 gm/dL (11.4-16.0); Lymphocytes # (A) 1.3 k/uL (1.0-4.8); Lymphocytes % (A) 15 %; MCH 30.6 pg (25.0-35.0); MCHC 34.6 g/dL (31.0-37.0); MCV 88.6 fL (80.0-100.0); Mean Platelet Volume 7.4; Monocytes # (A) 0.4 k/uL (0-1.0); Monocytes % (A) 5 %; Neutrophils # (A) 6.5 k/uL (1.3-7.7); Neutrophils % (A) 78 %; Platelet Count 272 k/uL (150-450); RBC 5.06 m/uL (3.80-5.40); RDW 13.2 % (11.5-15.5); WBC 8.4 k/uL (3.8-10.6)
[2020-08-01 13:35] LABS: Amorphous Sediment,Urine Rare /hpf; Appearance,Urine Turbid (Clear); Bacteria,Urine Rare /hpf; Bilirubin,Urine Negative (Negative); Blood,Urine Negative (Negative); Color,Urine Light Orange; Glucose,Urine (UA) Negative (Negative); Hyaline Casts,Urine 4 /lpf (0-2); Ketones,Urine Negative (Negative); Leukocyte Esterase,Urine Small (Negative); Mucus,Urine Many /hpf; Nitrite,Urine Negative (Negative); PH, Urine 5.5 (5.0-8.0); Protein,Urine 1+ (Negative); RBC,Urine 2 /hpf (0-5); Specific Gravity,Urine 1.022 (1.001-1.035); Squamous Epithelial Cell,Urine 1 /hpf (0-4)
[2020-08-01 13:37] LABS: ALT 82 U/L (4-34); AST 51 U/L (14-36); African American GFR (CKD) >90 (>60 ml/min/1.73 sqM); Albumin 4.1 g/dL (3.5-5.0); Alkaline Phosphatase 72 U/L (38-126); Anion Gap 8 mmol/L; Blood Urea Nitrogen 7 mg/dL (7-17); Calcium 10.5 mg/dL (8.4-10.2); Carbon Dioxide 26 mmol/L (22-30); Chloride 101 mmol/L (98-107); Glucose 95 mg/dL (74-99); Non-African American GFR(CKD) >90 (>60 ml/min/1.73 sqM); Potassium 3.7 mmol/L (3.5-5.1); Sodium 135 mmol/L (137-145); Total Bilirubin 1.5 mg/dL (0.2-1.3); Total Protein 7.2 g/dL (6.3-8.2)
[2020-08-01] MEDS: methylPREDNISolone SOD SUCCI 40 MG/ML 1 ML VIAL IV SCH ×2 (14:04→22:09)
[2020-08-01] MEDS: PANTOPRAZOLE 40 MG TABLET PO SCH (17:28)
[2020-08-01] MEDS: FAMOTIDINE 20 MG TAB PO SCH (22:09)
[2020-08-02] MEDS: LACTATED RINGERS 1,000 ML IV SCH (00:13)
[2020-08-02] MEDS: methylPREDNISolone SOD SUCCI 40 MG/ML 1 ML VIAL IV SCH ×3 (05:36→22:07)
[2020-08-02] MEDS: ACETAMINOPHEN TAB 325 MG TAB PO PRN ×2 (05:36→13:38)
[2020-08-02] MEDS: PANTOPRAZOLE 40 MG TABLET PO SCH ×2 (07:32→17:24)
[2020-08-02] MEDS: PRENATAL VIT-IRON-FOLIC ACID 1 EACH CAP PO SCH (07:32)
[2020-08-02] MEDS: LORATADINE 10 MG TAB PO SCH (07:32)
--- NOTE | 2020-08-02 09:14 | P.PN ---
Progress Note - Text Progress Note Date: 08/02/20 Patient states she is still vomiting and did vomit up this morning. She states she knows it takes a little time for the steroids to kick in. She does have a headache this morning. She denies any significant upper abdominal pain. She does have mild lower cramping when she is vomiting. She was advised that her liver enzymes were slightly elevated along with a slightly elevated bilirubin. A.m. labs are pending at this time. Will continue with IV steroid regimen for 48-72 hours total and then will switch to oral tapering steroids. Will consult GI for reevaluation. She was seen by Dr. Kuhn during her last admission. She is aware that Dr. Donato will be covering this weekend. After 48-72 hours of IV steroids, up-to-date recommends tapering with prednisone 40 mg daily for 1 day followed by 20 mg daily for 3 days followed by 10 mg daily for 3 days and then 5 mg daily for 7 days. Up-to-date states that this regimen may be repeated up to 3 times over a six-week period.
[2020-08-02 09:37] LABS: Potassium 3.6 mmol/L (3.5-5.1)
[2020-08-02 09:38] LABS: ALT 69 U/L (4-34); AST 44 U/L (14-36); African American GFR (CKD) >90 (>60 ml/min/1.73 sqM); Albumin 3.3 g/dL (3.5-5.0); Alkaline Phosphatase 56 U/L (38-126); Anion Gap 6 mmol/L; Blood Urea Nitrogen 4 mg/dL (7-17); Calcium 9.5 mg/dL (8.4-10.2); Carbon Dioxide 26 mmol/L (22-30); Chloride 101 mmol/L (98-107); Glucose 143 mg/dL (74-99); Non-African American GFR(CKD) >90 (>60 ml/min/1.73 sqM); Sodium 133 mmol/L (137-145); Total Bilirubin 1.4 mg/dL (0.2-1.3); Total Protein 5.9 g/dL (6.3-8.2)
[2020-08-02] MEDS: SODIUM CHLORIDE 0.9% 1,000 ML IV SCH ×2 (12:53→19:44)
[2020-08-02] MEDS: FAMOTIDINE 20 MG TAB PO SCH (22:07)
[2020-08-03] MEDS: SODIUM CHLORIDE 0.9% 1,000 ML IV SCH ×4 (01:39→22:34)
[2020-08-03] MEDS: methylPREDNISolone SOD SUCCI 40 MG/ML 1 ML VIAL IV SCH ×3 (06:16→22:03)
--- NOTE | 2020-08-03 07:20 | P.PN ---
Progress Note - Text Progress Note Date: 08/03/20 Hospital day #3. Patient is now 20 weeks and 5 days gestation. This morning she is resting and states that she was able to tolerate a little bit of a turkey roll last evening, however she states that in general she still has persistent nausea. Patient apparently was seen by gastroenterology yesterday in consultation is pending however they did order another right upper quadrant ultrasound. It appears she had one back in June that did not show any evidence of gallstones however in light of her mild liver function elevation we are going to recheck this. I explained to her that her liver function testing improved yesterday and is most likely secondary to the persistent nausea/vom iting/dehydration although she did not have any ketones in her urine on admission. Plan today is right upper quadrant ultrasound, continue IV fluids and IV steroids, recheck CBC and liver function tests, and advance diet as tolerated.
[2020-08-03 08:52] LABS: Albumin 2.9 g/dL (3.5-5.0); Bilirubin, Delta 0.2 mg/dL (0.0-0.2); Bilirubin,Unconjugated 0.6 mg/dL (0.0-1.1); Total Bilirubin 0.8 mg/dL (0.2-1.3); Total Protein 5.2 g/dL (6.3-8.2)
[2020-08-03 09:05] LABS: Basophils % (A) 0 %; Eosinophils % (A) 0 %; Lymphocytes # (A) 1.1 k/uL (1.0-4.8); Lymphocytes % (A) 14 %; MCH 29.9 pg (25.0-35.0); MCHC 32.9 g/dL (31.0-37.0); MCV 91.1 fL (80.0-100.0); Mean Platelet Volume 7.7; Monocytes # (A) 0.3 k/uL (0-1.0); Monocytes % (A) 4 %; Neutrophils # (A) 6.9 k/uL (1.3-7.7); Neutrophils % (A) 82 %; Platelet Count 217 k/uL (150-450); RBC 3.74 m/uL (3.80-5.40); RDW 13.8 % (11.5-15.5); WBC 8.5 k/uL (3.8-10.6)
[2020-08-03 09:12] LABS: HGB 11.2 gm/dL (11.4-16.0)
--- NOTE | 2020-08-03 09:45 | P.CONS ---
History of Present Illness - Reason for Consult Consult date: 08/02/20 Nausea and vomiting, elevated liver enzymes Requesting physician: Daniela Musa - Chief Complaint Nausea and vomiting - History of Present Illness 34-year-old female currently in her twentieth week of who was previously hospitalized approximately one month ago for hyperemesis who presented back to the hospital for evaluation of nausea and vomiting. The patient reports discharge 1 month ago on treatment with a steroid taper as well as B6, Compazine and Zofran. She reports initially doing very well however after completing the steroid taper her nausea and vomiting began once again. This worsened and the patient reports difficulty holding down any liquids or her medications. She does not feel she gain much relief with Reglan, B6 or Zofran. Her prior admission she had reported the sensation of globus and proximal esophageal food sticking which has occurred in the past. She does report taking pantoprazole nightly after discharge. She denies any shaheen abdominal pain at this time but does report some tenderness on palpation. Laboratory evaluation on presentation significant for WBC 8.4, hemoglobin 15.5, platelet count 143,000 with total bilirubin 1.4, alkaline phosphatase 56, AST 44 and ALT 69. Ultrasound on prior admission was significant for cholelithiasis. Review of Systems REVIEW OF SYSTEMS: CONSTITUTIONAL: Denies any fevers, chills, weight change or fatigue. CARDIOVASCULAR: Denies any chest pain, palpitations high or low blood pressures RESPIRATORY: Denies any shortness of breath, hemoptysis or cough. GENITOURINARY: No dysuria or hematuria. MUSCULOSKELETAL: No weakness reported. SKIN: Denies any new rashes or lesions, jaundice or pallor. PSYCHIATRIC: Denies any depression or anxiety. NEUROLOGY: Denies headache, denies any new focal deficits. EARS/NOSE/THROAT: No recent hearing change, congestion, nasal discharge or sore throat. EYES: No pain in eyes, discharge or change in vision. GASTROINTESTINAL: As per HPI. Past Medical History Past Medical History: Asthma, Neurologic Disorder (History of migraines) Additional Past Medical History / Comment(s): RECENT MISSED AB History of Any Multi-Drug Resistant Organisms: None Reported Past Surgical History: Breast Surgery, Orthopedic Surgery, Tonsillectomy Additional Past Surgical History / Comment(s): CYST REMOVED RT WRIST. LT HEEL SPUR REMOVED. BREAST REDUCTION. CTR-RT HAND. D&C Past Anesthesia/Blood Transfusion Reactions: Motion Sickness, Postoperative Nausea & Vomiting (PONV) Past Psychological History: Depression Smoking Status: Never smoker Past Alcohol Use History: None Reported Past Drug Use History: None Reported - Past Family History Mother Family Medical History: No Reported History Medications and Allergies Home Medications Medication Instructions Recorded Confirmed Type No Known Home Medications 08/01/20 08/01/20 History Allergies Allergy/AdvReac Type Severity Reaction Status Date / Time codeine Allergy Unknown Verified 08/01/20 12:38 Childhood Penicillins Allergy Unknown Verified 08/01/20 12:38 Childhood Physical Exam Vitals: Vital Signs Temp Pulse Resp BP 08/03/20 08:00 98.0 F 79 18 107/65 08/03/20 00:00 97.7 F 84 14 98/60 08/02/20 16:00 97.4 F L 85 16 100/67 Intake and Output 08/02/20 08/03/20 08/03/20 22:59 06:59 14:59 Other: # Voids 2 2 On physical examination, patient appears comfortable in no apparent distress. HEAD: Normocephalic, atraumatic. EYES: No scleral icterus. No conjunctival injection. MOUTH: No lesions, tongue midline. NECK: Trachea midline, no gross abnormalities. CHEST: Clear to auscultation with no wheezing or rhonchi appreciated. HEART: Regular rate and rhythm. ABDOMEN: Soft, gravid. Bowel sounds are positive. No organomegaly. No guarding or rigidity. EXTREMITIES: No pedal edema. SKIN: No rashes, no jaundice. NEUROLOGIC: Alert and oriented x3. No focal deficits. Results CBC & Chem 7: 08/03/20 08:15 08/02/20 08:23 Labs: Abnormal Lab Results - Last 24 Hours (Table) 08/02/20 08/03/20 08/03/20 Range/Units 08:23 08:15 08:15 RBC 3.74 L (3.80-5.40) m/uL Hgb 11.2 L D (11.4-16.0) gm/dL Sodium 133 L (137-145) mmol/L BUN 4 L (7-17) mg/dL Glucose 143 H (74-99) mg/dL Total Bilirubin 1.4 H (0.2-1.3) mg/dL AST 44 H 38 H (14-36) U/L ALT 69 H 65 H (4-34) U/L Total Protein 5.9 L 5.2 L (6.3-8.2) g/dL Albumin 3.3 L 2.9 L (3.5-5.0) g/dL US - abdomen: pending (Ultrasound of the gallbladder pending) Assessment and Plan (1) Nausea and vomiting Narrative/Plan: 34-year-old female currently in her 20th week of who presented to the hospital due to nausea, vomiting and dehydration. The patient was previously hospitalized one month ago for similar complaints and treated with steroid taper as well as being discharged on PPI therapy which she reports taking at night and other antiemetics. She had done well initially but presented back to the hospital with recurrence of frequent episodes of nausea and vomiting. Patient symptoms likely multifactorial secondary to hyperemesis as well as suspicion for a component of reflux esophagitis. Current Visit: Yes Status: Acute Code(s): R11.2 - NAUSEA WITH VOMITING, UNSPECIFIED SNOMED Code(s): 81232402 (2) Elevated liver enzymes Narrative/Plan: Improved today, she did have cholelithiasis found on her last ultrasound in the hospital however no evidence of biliary obstruction. Likely related to dehydration, viral hepatitis panel and ultrasound ordered. Current Visit: Yes Status: Acute Code(s): R74.8 - ABNORMAL LEVELS OF OTHER SERUM ENZYMES SNOMED Code(s): 948436755 (3) Hyperemesis gravidarum Current Visit: No Status: Acute Code(s): O21.0 - MILD HYPEREMESIS GRAVIDARUM SNOMED Code(s): 73251120 Plan: Supportive care Okay for diet as tolerated, have discussed small frequent meals Continue Protonix therapy with Pepcid at night Compazine ATC added Option of the abdomen ordered Acute viral hepatitis panel ordered Continue to monitor CBC, BMP, LFTs Thank you for allowing us to participate in the care of the patient
[2020-08-03] MEDS: PRENATAL VIT-IRON-FOLIC ACID 1 EACH CAP PO SCH (10:06)
[2020-08-03] MEDS: PROCHLORPERAZINE 10 MG TAB PO SCH ×2 (10:07→16:37)
[2020-08-03] MEDS: LORATADINE 10 MG TAB PO SCH (10:10)
[2020-08-03] MEDS: PANTOPRAZOLE 40 MG TABLET PO SCH ×2 (10:10→19:41)
--- NOTE | 2020-08-03 10:33 | US ---
EXAMINATION TYPE: US gallbladder DATE OF EXAM: 08/03/2020 COMPARISON: US gallbladder 06/22/2020 CLINICAL HISTORY: RUQ pain. RUQ pain, known cholelithiasis, patient is 21 weeks , exam done p ortable. EXAM MEASUREMENTS: Liver Length: 14.3 cm Gallbladder Wall: 0.2 cm CBD: 0.2 cm Right Kidney: 11.8 x 5.7 x 4.8 cm Pancreas: Obscured by overlying bowel gas. Liver: Normal. Gallbladder: The gallbladder is filled with cholelithiasis. No evidence of gallbladder wall thickeni ng or pericholecystic edema. Marketing Technology Coordinator reports negative sonographic Sun sign. CBD: Normal. No intrahepatic or extrahepatic biliary ductal dilatation. Right Kidney: Mild hydronephrosis. IMPRESSION: 1. The gallbladder is filled with cholelithiasis, increased versus 06/22/2020 ultrasound comparison. N o acute cholecystitis. 2. Mild right hydronephrosis likely physiological change of the .
[2020-08-03] MEDS: LACTATED RINGERS 1,000 ML IV SCH (19:59)
[2020-08-03] MEDS: FAMOTIDINE 20 MG TAB PO SCH (22:03)
[2020-08-04] MEDS: PROCHLORPERAZINE 10 MG TAB PO SCH ×4 (00:13→23:28)
[2020-08-04] MEDS: methylPREDNISolone SOD SUCCI 40 MG/ML 1 ML VIAL IV SCH (06:02)
--- NOTE | 2020-08-04 06:51 | P.PN ---
Progress Note - Text Progress Note Date: 08/04/20 Hospital day #4. Patient is 20 weeks and 6 days. Ultrasound of the gallbladder yesterday showed multiple gallstones which is a significant change from the ultrasound of her gallbladder she had approximately 1 month ago. There was no evidence of wall thickening or acute cholecystitis. Patient is tolerating some increased food, however is not fully tolerating regular diet. Repeat liver function yesterday showed them to be improved slightly. 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 She tolerates oral prednisone was unable to keep things down and most likely will be able to go home tomorrow on a continued steroid taper. I then went to repeat her liver function tests and amylase and lipase today. At some point in the future, most likely after her , she will most likely need a cholecystectomy.
[2020-08-04 07:10] LABS: Basophils % (A) 0 %; Eosinophils % (A) 0 %; HCT 35.1 % (34.0-46.0); HGB 11.6 gm/dL (11.4-16.0); Lymphocytes # (A) 1.3 k/uL (1.0-4.8); Lymphocytes % (A) 14 %; MCHC 33.1 g/dL (31.0-37.0); MCV 90.7 fL (80.0-100.0); Mean Platelet Volume 7.5; Monocytes # (A) 0.4 k/uL (0-1.0); Monocytes % (A) 4 %; Neutrophils # (A) 7.5 k/uL (1.3-7.7); Neutrophils % (A) 81 %; Platelet Count 231 k/uL (150-450); RBC 3.87 m/uL (3.80-5.40); RDW 13.4 % (11.5-15.5); WBC 9.2 k/uL (3.8-10.6)
[2020-08-04 07:15] LABS: Albumin 2.9 g/dL (3.5-5.0); Bilirubin, Delta 0.2 mg/dL (0.0-0.2); Bilirubin,Unconjugated 0.4 mg/dL (0.0-1.1); Total Bilirubin 0.6 mg/dL (0.2-1.3); Total Protein 5.3 g/dL (6.3-8.2)
[2020-08-04] MEDS: LORATADINE 10 MG TAB PO SCH (07:47)
[2020-08-04] MEDS: PRENATAL VIT-IRON-FOLIC ACID 1 EACH CAP PO SCH (07:47)
[2020-08-04] MEDS: PANTOPRAZOLE 40 MG TABLET PO SCH ×2 (07:48→17:35)
[2020-08-04] MEDS: SODIUM CHLORIDE 0.9% 1,000 ML IV SCH ×2 (10:58→23:30)
--- NOTE | 2020-08-04 13:19 | P.PN ---
Subjective Progress Note Date: 08/04/20 Principal diagnosis: Nausea and vomiting, hematemesis Patient is seen sitting in bed eating lunch. Overall doing better however she did have some nausea this morning after eating eggs. Abdominal pain improved. Objective - Vital Signs Vital signs: Vital Signs Temp 97.9 F 08/04/20 08:00 Pulse 76 08/04/20 08:00 Resp 18 08/04/20 08:00 BP 108/58 08/04/20 08:00 Pulse Ox 99 08/03/20 16:00 Intake & Output 08/03/20 08/04/20 08/04/20 18:59 06:59 18:59 Other: # Voids 1 - Exam On physical examination, patient appears comfortable in no apparent distress. HEAD: Normocephalic, atraumatic. EYES: No scleral icterus. No conjunctival injection. MOUTH: No lesions, tongue midline. NECK: Trachea midline, no gross abnormalities. ABDOMEN: Soft, gravid. Bowel sounds are positive. No organomegaly. No guarding or rigidity. EXTREMITIES: No pedal edema. SKIN: No rashes, no jaundice. NEUROLOGIC: Alert and oriented x3. No focal deficits. - Labs CBC & Chem 7: 08/04/20 06:53 08/02/20 08:23 Labs: Abnormal Lab Results - Last 24 Hours (Table) 08/04/20 Range/Units 06:53 ALT 50 H (4-34) U/L Total Protein 5.3 L (6.3-8.2) g/dL Albumin 2.9 L (3.5-5.0) g/dL Assessment and Plan (1) Nausea and vomiting Narrative/Plan: 34-year-old female currently in her 20th week of who presented to the hospital due to nausea, vomiting and dehydration. The patient was previously hospitalized one month ago for similar complaints and treated with steroid taper as well as being discharged on PPI therapy which she reports taking at night and other antiemetics. She had done well initially but presented back to the hospital with recurrence of frequent episodes of nausea and vomiting. Patient symptoms likely multifactorial secondary to hyperemesis as well as suspicion for a component of reflux esophagitis. Current Visit: Yes Status: Acute Code(s): R11.2 - NAUSEA WITH VOMITING, UNSPECIFIED SNOMED Code(s): 47689709 (2) Elevated liver enzymes Narrative/Plan: Improved today, she did have cholelithiasis found on her last ultrasound in the hospital however no evidence of biliary obstruction. Likely related to dehydration, viral hepatitis panel and ultrasound ordered. Current Visit: Yes Status: Acute Code(s): R74.8 - ABNORMAL LEVELS OF OTHER SERUM ENZYMES SNOMED Code(s): 536663002 (3) Hyperemesis gravidarum Current Visit: No Status: Acute Code(s): O21.0 - MILD HYPEREMESIS GRAVIDARUM SNOMED Code(s): 04750082 Plan: Supportive care Okay for diet as tolerated, have discussed small frequent meals Continue Protonix therapy with Pepcid at night Compazine ATC Cholelithiasis on ultrasound the abdomen with no evidence of cholecystitis or dilated ducts Continue to monitor CBC, BMP, LFTs Thank you for allowing us to participate in the care of the patient
[2020-08-04 13:35] VITALS: BMI 34.1
[2020-08-04] MEDS ORDERED: predniSONE 20 MG TAB PO ONE (14:00)
[2020-08-04] MEDS: FAMOTIDINE 20 MG TAB PO SCH (20:54)
[2020-08-04 23:39] VITALS: PULSE 77
[2020-08-05] MEDS: PANTOPRAZOLE 40 MG TABLET PO SCH (08:08)
[2020-08-05] MEDS: LORATADINE 10 MG TAB PO SCH (08:08)
[2020-08-05] MEDS: PROCHLORPERAZINE 10 MG TAB PO SCH (08:08)
[2020-08-05] MEDS: PRENATAL VIT-IRON-FOLIC ACID 1 EACH CAP PO SCH (08:08)
[2020-08-05 08:28] VITALS: BP 108/72; RESP 18; TEMP 98.2
--- NOTE | 2020-08-05 09:06 | P.DS ---
Providers Date of admission: 08/01/20 12:57 Expected date of discharge: 08/05/20 Attending physician: Daniela Musa Consults: 08/02/20 09:09 Consult Physician Urgent Consulting Provider: Lio Kuhn Consult Reason/Comments: Elevated liver enzymes, known gallstones Do you want consulting provider notified?: Yes Primary care physician: Stated None - Discharge Diagnosis(es) (1) Hyperemesis gravidarum Current Visit: No Status: Acute Hospital Course: This is a 34 Musa female 2 para 0 at 21 weeks who initially presented with nausea and vomiting and unable to hold anything down for 2 weeks. She has a history of gallstones and was seen by GI during this admission. She was given IV hydration and IV steroids followed by by mouth steroids. She currently is able to hold food down and is not vomiting. Abdominal pain is less. She is feeling movement. Impression is intrauterine at approximately 21 weeks, hyperemesis, gallstones. Plan is discharge home today on steroids. She will take 20 mg a day for 3 days followed by 10 mg a day for 3 days followed by 5 g a day for 7 days. She will follow up with me in the office as scheduled. She is advised to call the office if she has any further questions or concerns prior to her appointment time. Patient Condition at Discharge: Stable Plan - Discharge Summary New Discharge Prescriptions: New predniSONE 10 mg PO DAILY #14 tab Loratadine [Claritin] 10 mg PO DAILY tab Famotidine [Pepcid] 20 mg PO HS tab [id number] Acid [-U Capsule (formulary)] 1 each PO DAILY cap Pantoprazole [Protonix] 40 mg PO AC-BID tablet. Discharge Medication List Famotidine [Pepcid] 20 mg PO HS tab 08/05/20 [Rx] Loratadine [Claritin] 10 mg PO DAILY tab 08/05/20 [Rx] Pantoprazole [Protonix] 40 mg PO AC-BID tablet. 08/05/20 [Rx] [id number]-Qmugk Acid [-U Capsule (formulary)] 1 each PO DAILY cap 08/05/20 [Rx] predniSONE 10 mg PO DAILY #14 tab 08/05/20 [Rx] Follow up Appointment(s)/Referral(s): Daniela Musa DO [Doctor of Osteopathic Medicine] - 3 Weeks Patient Instructions/Handouts: Hyperemesis Gravidarum (IP) Discharge Disposition: HOME SELF-CARE
== END 2020-08-05 10:30 | disposition home or self-care (01) | DRG 833 ==
LOC: 4FBP 12:32 → OBSVTOIN 12:57 → UNDODISIN 08-02 18:15
PROVIDERS: ADMIT Obstetrics & Gynecology; ATTEND Obstetrics & Gynecology
DX: O21.0 Mild hyperemesis gravidarum (principal); O99.612 Diseases of the digestive system complicating pregnancy, second trimester; E86.0 Dehydration; O99.512 Diseases of the respiratory system complicating pregnancy, second trimester; F32.9 Major depressive disorder, single episode, unspecified; O99.342 Other mental disorders complicating pregnancy, second trimester; O99.282 Endocrine, nutritional and metabolic diseases complicating pregnancy, second trimester; O09.522 Supervision of elderly multigravida, second trimester; K80.20 Calculus of gallbladder without cholecystitis without obstruction; J45.909 Unspecified asthma, uncomplicated; Z88.5 Allergy status to narcotic agent; Z88.0 Allergy status to penicillin; Z3A.20 20 weeks gestation of pregnancy
CPT/HCPCS: 76705; 80053; 80076; 81001; 82150; 83690; 85025

== ENCOUNTER 2020-08-11 01:35 | Outpatient (CLI) | payer BC ==
[2020-08-11 01:53] VITALS: BP 111/53; PULSE 94; RESP 16; TEMP 97.6
[2020-08-11 02:22] LABS: Amorphous Sediment,Urine Rare /hpf; Appearance,Urine Clear (Clear); Bacteria,Urine Rare /hpf; Bilirubin,Urine Negative (Negative); Blood,Urine Negative (Negative); Color,Urine Light Yellow; Glucose,Urine (UA) Negative (Negative); Ketones,Urine Negative (Negative); Leukocyte Esterase,Urine Moderate (Negative); Mucus,Urine Rare /hpf; Nitrite,Urine Negative (Negative); Protein,Urine Negative (Negative); RBC,Urine 1 /hpf (0-5); Specific Gravity,Urine 1.007 (1.001-1.035); Squamous Epithelial Cell,Urine 4 /hpf (0-4); Urobilinogen,Urine <2.0 mg/dL (<2.0); WBC,Urine 5 /hpf (0-5)
--- NOTE | 2020-08-11 12:15 | P.MSEPDOC ---
Presenting Problems - Arrival Data Date of Arrival on Unit: 08/11/20 Time of Arrival on Unit: 01:35 Mode of Transport: Ambulatory - Complaint OB-Reason for Admission/Chief Complaint: Pain Comment: Right upper quadrant pain. Medical History - Information : 2 Para: 0 Term: 0 : 0 Abortions: Spontaneous or Elective: 0 Number of Living Children: 0 - Gestational Age Gestational Age by DONG (wks/days): 21 Weeks and 6 Days Review of Systems - Review of Systems Constitutional: No problems Breast: No problems ENT: No problems Cardiovascular: No problems Respiratory: No problems Gastrointestinal: No problems Genitourinary: No problems Musculoskeletal: No problems Neurological: No problems Skin: No problems Vital Signs - Temperature Temperature: 97.6 F Temperature Source: Oral - Pulse Right Brachial Pulse Rate: 94 Pulse Assessment Method: Automatic Cuff - Respirations Respiratory Rate: 16 Oxygen Delivery Method: Room Air O2 Sat by Pulse Oximetry: 100 - Blood Pressure Right Arm Blood Pressure: 111/53 Blood Pressure Mean: 72 Blood Pressure Source: Manual Cuff/Auscultation Medical Screen Scoring (Pre) - Cervical Exam Dilation: Exam Deferred Effacement: Exam Deferred Membranes: Intact - Uterine Contractions Frequency: N/A Duration: N/A Intensity: N/A - Maternal Vital Signs Maternal Temperature: N/A Maternal Blood Pressure: N/A Signs of Preeclampsia: N/A Maternal Respirations: N/A - Assessment - Baby A Baseline FHR: 145 Heart Rate - NICHD Category: Category I (Normal) = 0 NST: Reactive Position: N/A Station: N/A - Total Score - Baby A Total Score - Baby A: 0 - Total Score - Baby B Total Score - Baby B: 0 - Total Score - Baby C Total Score - Baby C: 0 - Level of Risk - Baby A Level of Risk - Baby A: Low (0-5) - Level of Risk - Baby B Level of Risk - Baby B: Low (0-5) - Level of Risk - Baby C Level of Risk - Baby C: Low (0-5) Physician Notification (Pre) - Physician Notified Physician Notified Date: 08/11/20 Physician Notified Time: 01:09 New Order Received: Yes - Notification Comment Comment: Dr. Cortes given report on pt. Pt c/o of right upper quadrant pain. Pt rates. pain 04/19 but appears relaxed. VS WNL. FHTs dopplered 144-150 bpm. Pt has hx of. hyperemesis w/ . U/S in 2 weeks showed gallstones with no blockage. Pt has. denied prior symptoms r/t gallbladder. Orders receieved to observe pt and send UA. To. d/c pt to home and to educate pt to follow up with office on Wednesday. Disposition - Disposition OB Disposition: Discharge to home Discharge Date: 08/11/20 Discharge Time: 01:47 I agree with the RN Medical Screening Exam: Yes Risk & Benefit of care provided described in d/c instruction: Yes Diagnosis: PREG CARE FOR PATIENT W RECUR PREG LOSS, SECOND TRIMESTER
== END 2020-08-11 01:55 | disposition home or self-care (01) ==
LOC: FBPOP 01:35
PROVIDERS: ATTEND Obstetrics & Gynecology
DX: O26.22 Pregnancy care for patient with recurrent pregnancy loss, second trimester (principal); Z3A.21 21 weeks gestation of pregnancy
CPT/HCPCS: 81001; 99213

== ENCOUNTER → 2021-01-06 | Day surgery (SDC) | payer BC, OTHER ==
[2021-01-02 14:11] VITALS: BMI 35.1
[~2021-01-06] MED LIST changes: +LACTATED RINGERS 1,000 ML IV ONE; +LIDOCAINE 1% INJ 10MG/ML (20 ML MDV) ONE; +MIDAZOLAM 2 MG/2 ML VIAL ONE; +PROPOFOL 10 MG/ML 20 ML VIAL IV ONE; -Pre Op ABX Message 1 EACH MISC MISCELLANE ONE
[2021-01-06 09:10] VITALS: TEMP 98.4
--- NOTE | 2021-01-06 09:44 | P.PCN ---
Date of Procedure: 01/06/21 Description of Procedure: BRIEF HISTORY: Patient is a 35-year-old female presenting for outpatient esophagus or duodenoscopy for evaluation of dysphagia. Patient seen during her with episodes of hyperemesis. She reported symptoms even prior to with episodes of esophageal dysphagia, globus and reflux. Currently not on any medical therapy. PROCEDURE PERFORMED: Esophagogastroduodenoscopy with biopsy. PREOPERATIVE DIAGNOSIS: dysphagia, esophageal dysphagia, suspected GERD. ESTIMATED BLOOD LOSS: Minimal. IV sedation per anesthesia. PROCEDURE: After informed consent was obtained, the patient was brought into the endoscopy unit. IV sedation was administered by Anesthesia under continuous monitoring. Initially the Olympus GIF-190 video endoscope was inserted into the mouth. Esophagus intubated without any difficulty. It was gradually advanced into the stomach and duodenum and carefully examined. The bulb and the second part of the duodenum appeared normal, with biopsies taken. The scope at this time was withdrawn to the stomach, adequately insufflated with air, and upon careful examination, mucosa of the antrum, body, cardia and the fundus appeared normal, except for some mild punctate erythema in the antrum suggestive of mild gastritis with biopsies of the antrum and body taken. The scope was then withdrawn into the esophagus. The GE junction was located at 37 cm from the incisors and biopsied. There was a short tongue of salmon-colored mucosa which may represent Garcia's which was biopsied at the GE junction. The esophagus appeared normal, with mid esophageal biopsies taken to rule out celiac sprue. There were no erosions or ulcerations seen and the patient tolerated the procedure well. IMPRESSION: 1. Mild gastritis. 2. Biopsies of the duodenum, antrum body, GE junction and mid esophagus. RECOMMENDATIONS: The findings of this examination were discussed with the patient and her fianc. Okay to resume diet. Okay to resume medications. Await pathology from biopsies. Follow-up in the GI clinic as scheduled.
[2021-01-06 10:04] VITALS: BP 134/88; PULSE 72; RESP 16
== END ==
LOC: ORWHC2ENDO 08:43
PROVIDERS: ATTEND Internal Medicine
DX: R13.10 Dysphagia, unspecified (principal); K29.50 Unspecified chronic gastritis without bleeding; K21.00 Gastro-esophageal reflux disease with esophagitis, without bleeding; J45.909 Unspecified asthma, uncomplicated; Z88.5 Allergy status to narcotic agent; Z88.0 Allergy status to penicillin
CPT/HCPCS: 81025; 88305; 43239; J2250; J2001; J2704

== ENCOUNTER 2022-08-09 10:01 | Outpatient (CLI) | payer OTHER ==
[2022-08-09] MEDS ORDERED: ONDANSETRON 4 MG/2 ML VIAL IVP STA (10:35)
[2022-08-09 10:52] LABS: Amorphous Sediment,Urine Rare /hpf; Appearance,Urine Cloudy (Clear); Bilirubin,Urine 1+ (Negative); Blood,Urine Negative (Negative); Color,Urine Yellow; Glucose,Urine (UA) Negative (Negative); Ketones,Urine 3+ (Negative); Leukocyte Esterase,Urine Small (Negative); Mucus,Urine Moderate /hpf; Nitrite,Urine Negative (Negative); Protein,Urine 1+ (Negative); RBC,Urine 2 /hpf (0-5); Specific Gravity,Urine 1.024 (1.001-1.035); Squamous Epithelial Cell,Urine 6 /hpf (0-4); WBC,Urine 7 /hpf (0-5)
[2022-08-09] MEDS: SODIUM CHLORIDE 0.9% 1,000 ML IV ONE ×4 (10:52→13:00)
[2022-08-09 10:56] LABS: Glucose,Whole Blood 80 mg/dL (70-110)
[2022-08-09 15:11] VITALS: BP 110/68; PULSE 100; RESP 18; TEMP 97.5
--- NOTE | 2022-09-07 07:52 | P.MSEPDOC ---
Presenting Problems - Arrival Data Date of Arrival on Unit: 08/09/22 Time of Arrival on Unit: 10:01 Mode of Transport: Ambulatory - Complaint OB-Reason for Admission/Chief Complaint: Hyperemesis Comment: nausea/vomiting as well as abdominal tightening. Medical History - Information : 3 Para: 1 Term: 1 : 0 Abortions: Spontaneous or Elective: 1 Number of Living Children: 1 - Gestational Age Gestational Age by DONG (wks/days): 28 Weeks and 0 Days - History Complications: GDM, Prior , Other Comment: hyperemesis gravidarium Review of Systems - Review of Systems Constitutional: No problems Breast: No problems ENT: No problems Cardiovascular: No problems Respiratory: No problems Gastrointestinal: No problems Genitourinary: No problems Musculoskeletal: No problems Neurological: No problems Skin: No problems Vital Signs - Temperature Temperature: 97.5 F Temperature Source: Temporal Artery Scan - Pulse Right Pulse Oximetery Pulse Rate: 100 Pulse Assessment Method: Pulse Oximetry - Respirations Respiratory Rate: 18 Oxygen Delivery Method: Room Air O2 Sat by Pulse Oximetry: 98 - Blood Pressure Right Arm Blood Pressure: 110/68 Blood Pressure Mean: 82 Blood Pressure Source: Automatic Cuff Medical Screen Scoring - Cervical Exam Dilation (cm): 0 Effacement (%): 0 Membranes: Intact - Uterine Contractions Frequency From (mins): 3 Frequency To (mins): 4 Duration From (seconds): 40 Duration To (seconds): 50 Intensity: Mild Resting: Soft to palpation - Assessment - Baby A Baseline FHR: 145 Heart Rate - NICHD Category: Category I (Normal) NST: Reactive Physician Notification - Physician Notified Physician Notified Date: 08/09/22 Physician Notified Time: Physician: Allie Salazar New Order Received: Yes - Notification Comment Comment: orders for IV hydration, blood glucose check, urinalysis, zofran 4mg IV. patient given 4L IV fluid, cervical exam done, and order to begin taking phenergan again Maternal Triage Index - Maternal Triage Index Presenting for scheduled procedure w/no complaint: No - Stat/Priority 1 Stat Priority 1: No - Urgent/Priority 2 Urgent Priority 2: Yes Provider Notified: Allie Salazar Provider Notified Time: Criteria Met for Priority 2: Detectable uterine contractions at 28 0/7 weeks gestation Disposition - Disposition OB Disposition: Discharge to home Discharge Date: 08/09/22 Discharge Time: 14:15 I agree with the RN Medical Screening Exam: Yes Case reviewed; plan agreed upon as documented in EMR&OBIX.: Yes Diagnosis: VOMITING OF , UNSPECIFIED
== END 2022-08-09 14:15 | disposition home or self-care (01) ==
LOC: FBPOP 10:01
PROVIDERS: ATTEND Obstetrics & Gynecology
DX: O26.893 Other specified pregnancy related conditions, third trimester (principal); Z3A.28 28 weeks gestation of pregnancy; R11.10 Vomiting, unspecified; Z88.5 Allergy status to narcotic agent; Z88.0 Allergy status to penicillin
CPT/HCPCS: 59025; 99214; 96361; 96374; 81001; J2405

== ENCOUNTER 2022-08-15 10:51 | Inpatient (IN) | payer OTHER ==
[2022-08-15] MEDS ORDERED: LACTATED RINGERS 1,000 ML IV SCH (11:24)
[2022-08-15 12:40] LABS: Basophils # (A) 0.1 k/uL (0-0.2); Basophils % (A) 1 %; Eosinophils # (A) 0.1 k/uL (0-0.7); Eosinophils % (A) 1 %; HGB 14.2 gm/dL (11.4-16.0); Hypochromasia Slight; Lymphocytes # (A) 1.8 k/uL (1.0-4.8); Lymphocytes % (A) 19 %; MCH 30.7 pg (25.0-35.0); MCHC 34.8 g/dL (31.0-37.0); MCV 88.3 fL (80.0-100.0); Mean Platelet Volume 9.3; Monocytes # (A) 0.5 k/uL (0-1.0); Monocytes % (A) 5 %; Neutrophils % (A) 74 %; Platelet Count 254 k/uL (150-450); Poikilocytosis Moderate; RBC 4.64 m/uL (3.80-5.40); RDW 14.7 % (11.5-15.5); WBC 9.5 k/uL (3.8-10.6)
[2022-08-15 12:41] LABS: ALT 56 U/L (4-34); AST 68 U/L (14-36); African American GFR (CKD) >90 (>60 ml/min/1.73 sqM); Albumin 3.5 g/dL (3.5-5.0); Alkaline Phosphatase 127 U/L (38-126); Anion Gap 9 mmol/L; Blood Urea Nitrogen 3 mg/dL (7-17); Calcium 8.7 mg/dL (8.4-10.2); Carbon Dioxide 22 mmol/L (22-30); Chloride 103 mmol/L (98-107); Glucose 85 mg/dL (74-99); Non-African American GFR(CKD) >90 (>60 ml/min/1.73 sqM); Potassium 3.3 mmol/L (3.5-5.1); Sodium 134 mmol/L (137-145); Total Bilirubin 1.8 mg/dL (0.2-1.3); Total Protein 6.2 g/dL (6.3-8.2)
--- NOTE | 2022-08-15 13:11 | P.HPOB ---
History of Present Illness H&P Date: 08/15/22 Chief Complaint: Chronic nausea and vomiting, decreased movement This patient is a pleasant 36-year-old 3 para 1 female estimated date of confinement 11/01/2022 estimated gestational age 28-6/7 weeks who presents to labor and delivery with complaints of persistent nausea and vomiting and now decreased movement. Patient's care is per Dr. Musa. Apparently is been complicated by nausea vomiting the entire for which she's been taking multiple agents. Patient was here on August 09 with similar complaints and given 4 L of fluid and sent home. Patient states she still is benign we'll keep anything down. She has been prescribed Phenergan suppositories but has not taken any in over 5-7 days due to supply issues. Patient also complained of decreased movement. Review of Systems Constitutional: Reports as per HPI, Reports weight loss Gastrointestinal: Reports nausea, Reports vomiting Genitourinary: Reports Menstruation: Reports amenorrhea Past Medical History Past Medical History: Asthma, Diabetes Mellitus, GERD/Reflux Additional Past Medical History / Comment(s): Hx Gestational Diabetes. History of Any Multi-Drug Resistant Organisms: None Reported Past Surgical History: Breast Surgery, Section, Orthopedic Surgery, Tonsillectomy Additional Past Surgical History / Comment(s): CYST REMOVED RT WRIST, LT HEEL SPUR REMOVED, BREAST REDUCTION, CTR-RT HAND, D&C. Past Anesthesia/Blood Transfusion Reactions: Motion Sickness, Postoperative Nausea & Vomiting (PONV) Smoking Status: Never smoker - Past Family History Mother Family Medical History: No Reported History Medications and Allergies Home Medications Medication Instructions Recorded Confirmed Type Aspirin [Children's Aspirin] 81 mg PO DAILY 08/09/22 08/15/22 History Doxylamine Succinate [Unisom] 25 mg PO DAILY 08/09/22 08/15/22 History INSULIN ASPART (NovoLOG) [NovoLOG 5 unit SQ BID 08/09/22 08/15/22 History (formulary)] Insulin Glargine [Lantus Vial] 15 unit SQ HS 08/09/22 08/15/22 History Omeprazole 40 mg PO DAILY 08/09/22 08/15/22 History Promethazine Suppository 25 mg RECTAL QID 08/09/22 08/15/22 History [Phenergan] ondansetron HCL [Zofran] 8 mg PO Q8HR 10/30/22 11/05/22 History Allergies Allergy/AdvReac Type Severity Reaction Status Date / Time codeine Allergy Unknown Verified 08/15/22 12:00 Childhood Penicillins Allergy Unknown Verified 08/15/22 12:00 Childhood Exam Intake and Output 08/14/22 08/15/22 08/15/22 22:59 06:59 14:59 Other: Weight 97.976 kg - OBG Physical Exam Cervix: Cervix is closed and thick Results Result Diagrams: 08/15/22 11:20 08/15/22 11:20 Abnormal Lab Results - Last 24 Hours (Table) 08/15/22 Range/Units 11:20 Sodium 134 L (137-145) mmol/L Potassium 3.3 L (3.5-5.1) mmol/L BUN 3 L (7-17) mg/dL Creatinine 0.51 L (0.52-1.04) mg/dL Total Bilirubin 1.8 H (0.2-1.3) mg/dL AST 68 H (14-36) U/L ALT 56 H (4-34) U/L Alkaline Phosphatase 127 H (38-126) U/L Total Protein 6.2 L (6.3-8.2) g/dL Assessment and Plan Assessment: This is a pleasant 36-year-old 3 para 1 female 28-6/7 weeks gestation with chronic nausea vomiting/hyperemesis and now with complaints of persistent problems then decreased movement. heart tones are reassuring. Patient does have elevated liver tests and mildly depressed potassium. For this reason the night plan to admit her for IV hydration, potassium replacement and repeat labs in the morning. Patient and are agreeable to this plan. (1) 28 weeks gestation of Current Visit: Yes Status: Acute Code(s): Z3A.28 - 28 WEEKS GESTATION OF SNOMED Code(s): 92929518 (2) Hypokalemia Current Visit: Yes Status: Acute Code(s): E87.6 - HYPOKALEMIA SNOMED Code(s): 26615956 (3) Elevated liver enzymes Current Visit: No Status: Acute Code(s): R74.8 - ABNORMAL LEVELS OF OTHER SERUM ENZYMES SNOMED Code(s): 526791249 (4) Hyperemesis gravidarum Current Visit: No Status: Acute Code(s): O21.0 - MILD HYPEREMESIS GRAVIDARUM SNOMED Code(s): 49429823
[2022-08-15] MEDS: POTASSIUM CHLORIDE 10 MEQ in WATER FOR INJECTION 1 100ML.BAG IVPB SCH ×2 (13:54→15:17)
[2022-08-15] MEDS: LACTATED RINGERS 1,000 ML IV SCH ×2 (13:56→22:06)
[2022-08-15] MEDS: PROMETHAZINE SUPPOSITORY 12.5 MG SUPP RECTAL PRN ×2 (13:58→22:07)
[2022-08-15 17:15] LABS: Glucose,Whole Blood 80 mg/dL (70-110)
[2022-08-15 22:11] LABS: Glucose,Whole Blood 78 mg/dL (70-110)
[2022-08-16] MEDS: LACTATED RINGERS 1,000 ML IV SCH ×2 (04:43→20:07)
--- NOTE | 2022-08-16 07:02 | P.PN ---
Progress Note - Text Progress Note Date: 08/16/22 Hospital day #2. Patient is resting without new complaints. Patient's 29-0/7 weeks gestation. She's had maybe 2 episodes of emesis since admission. States that she is feeling somewhat better. Repeat labs are pending at this time. Blood sugars have been normal. Plan today is to recheck her blood work. If it is stable or improved discharge home follow up with Dr. Musa tomorrow.
--- NOTE | 2022-08-16 07:06 | P.DS ---
Providers Date of admission: 08/15/22 12:50 Expected date of discharge: 08/16/22 Attending physician: Rajiv Donato Primary care physician: Stated None - Discharge Diagnosis(es) (1) 28 weeks gestation of Current Visit: Yes Status: Acute (2) Hypokalemia Current Visit: Yes Status: Acute (3) Elevated liver enzymes Current Visit: No Status: Acute (4) Hyperemesis gravidarum Current Visit: No Status: Acute Hospital Course: Please see dictated H&P for intimate details of this patient's admission. Brief summary this 36-year-old multiparous patient admitted at 28-6/7 weeks gestation with persistent hyperemesis and dehydration. Patient is admitted and given IV hydration and anti-emetics. Initial blood work showed elevated liver tests and a mild depression of her potassium. I did give her some potassium and repeat blood work is pending at time of this dictation. Patient looked improved overnight felt to be stable for discharge home as long as her blood work was okay up with Dr. Musa tomorrow. Patient Condition at Discharge: Stable Plan - Discharge Summary New Discharge Prescriptions: No Action ondansetron HCL [Zofran] 8 mg PO Q8HR Promethazine Suppository [Phenergan] 25 mg RECTAL QID INSULIN ASPART (NovoLOG) [NovoLOG (formulary)] 5 unit SQ BID Doxylamine Succinate [Unisom] 25 mg PO DAILY Insulin Glargine [Lantus Vial] 15 unit SQ HS Omeprazole 40 mg PO DAILY Aspirin [Children's Aspirin] 81 mg PO DAILY Discharge Medication List Aspirin [Children's Aspirin] 81 mg PO DAILY 08/09/22 [History] Doxylamine Succinate [Unisom] 25 mg PO DAILY 08/09/22 [History] INSULIN ASPART (NovoLOG) [NovoLOG (formulary)] 5 unit SQ BID 08/09/22 [History] Insulin Glargine [Lantus Vial] 15 unit SQ HS 08/09/22 [History] Omeprazole 40 mg PO DAILY 08/09/22 [History] Promethazine Suppository [Phenergan] 25 mg RECTAL QID 08/09/22 [History] ondansetron HCL [Zofran] 8 mg PO Q8HR 08/09/22 [History] Follow up Appointment(s)/Referral(s): Daniela Musa DO [Doctor of Osteopathic Medicine] - 08/17/22 Patient Instructions/Handouts: Hyperemesis Gravidarum (DC), Dehydration (DC) Activity/Diet/Wound Care/Special Instructions: Continue diet as instructed. Follow up with Dr. Musa tomorrow as already scheduled Discharge Disposition: HOME SELF-CARE
[2022-08-16 07:35] LABS: Glucose,Whole Blood 72 mg/dL (70-110)
--- NOTE | 2022-08-16 07:50 | P.MSEPDOC ---
Presenting Problems - Arrival Data Date of Arrival on Unit: 08/15/22 Time of Arrival on Unit: 10:51 Mode of Transport: Ambulatory - Complaint OB-Reason for Admission/Chief Complaint: Decreased Movement, Hyperemesis Medical History - Information : 3 Para: 1 Term: 1 : 0 Abortions: Spontaneous or Elective: 1 Number of Living Children: 1 - Gestational Age Gestational Age by DONG (wks/days): 28 Weeks and 6 Days - History Complications: GDM Review of Systems - Review of Systems Constitutional: Recent weight loss Breast: No problems ENT: No problems Cardiovascular: No problems Respiratory: No problems Gastrointestinal: No problems Genitourinary: No problems Musculoskeletal: No problems Neurological: No problems Skin: No problems Vital Signs - Temperature Temperature: 98 F Temperature Source: Oral - Pulse Right Pulse Oximetery Pulse Rate: 76 Pulse Assessment Method: Automatic Cuff - Respirations Respiratory Rate: 16 Oxygen Delivery Method: Room Air - Blood Pressure Right Arm Blood Pressure: 116/79 Blood Pressure Mean: 91 Blood Pressure Source: Automatic Cuff Medical Screen Scoring - Assessment - Baby A Baseline FHR: 145 Heart Rate - NICHD Category: Category I (Normal) NST: Reactive Physician Notification - Physician Notified Physician Notified Date: 08/15/22 Physician Notified Time: 11:03 Physician: Rajiv Donato New Order Received: Yes - Notification Comment Comment: Pt labwork done, IV bolus given, pt admitted for OBV Maternal Triage Index - Maternal Triage Index Presenting for scheduled procedure w/no complaint: No - Stat/Priority 1 Stat Priority 1: No - Urgent/Priority 2 Urgent Priority 2: Yes Provider Notified: Rajiv Donato Provider Notified Time: 11:03 Criteria Met for Priority 2: pt concerns for decreased movement Disposition - Disposition OB Disposition: Admit, LDRP Suite I agree with the RN Medical Screening Exam: Yes Case reviewed; plan agreed upon as documented in EMR&OBIX.: Yes Diagnosis: RELATED CONDITIONS, UNSPECIFIED, THIRD TRIMESTER
[2022-08-16 08:48] LABS: Basophils % (A) 0 %; Eosinophils # (A) 0.1 k/uL (0-0.7); Eosinophils % (A) 1 %; HCT 37.6 % (34.0-46.0); HGB 13.1 gm/dL (11.4-16.0); Lymphocytes # (A) 1.5 k/uL (1.0-4.8); Lymphocytes % (A) 22 %; MCH 30.1 pg (25.0-35.0); MCHC 34.9 g/dL (31.0-37.0); MCV 86.2 fL (80.0-100.0); Mean Platelet Volume 9.3; Monocytes # (A) 0.4 k/uL (0-1.0); Monocytes % (A) 5 %; Neutrophils # (A) 4.8 k/uL (1.3-7.7); Neutrophils % (A) 70 %; Platelet Count 222 k/uL (150-450); Poikilocytosis Moderate; RBC 4.37 m/uL (3.80-5.40); RDW 14.5 % (11.5-15.5); WBC 6.9 k/uL (3.8-10.6)
[2022-08-16 08:59] LABS: ALT 56 U/L (4-34); AST 61 U/L (14-36); African American GFR (CKD) >90 (>60 ml/min/1.73 sqM); Alkaline Phosphatase 116 U/L (38-126); Anion Gap 8 mmol/L; Blood Urea Nitrogen 2 mg/dL (7-17); Calcium 8.4 mg/dL (8.4-10.2); Carbon Dioxide 24 mmol/L (22-30); Chloride 102 mmol/L (98-107); Glucose 81 mg/dL (74-99); Non-African American GFR(CKD) >90 (>60 ml/min/1.73 sqM); Sodium 134 mmol/L (137-145); Total Bilirubin 1.8 mg/dL (0.2-1.3); Total Protein 5.3 g/dL (6.3-8.2)
--- NOTE | 2022-08-16 10:06 | P.PN ---
Progress Note - Text Progress Note Date: 08/16/22 Patient's labs returned with liver function tests which were stable, however potassium was decreased to 3.0. I did discuss this with the pharmacist and were going to add potassium chloride to each bag and then will recheck levels in the morning. Patient is unable to take orally reliably. We will cancel her discharge and continue inpatient treatment.
[2022-08-16] MEDS: LACTATED RINGERS 1,000 ML with POTASSIUM CHLORIDE 20 MEQ IV SCH ×4 (11:26→18:36)
[2022-08-16 12:12] LABS: Glucose,Whole Blood 69 mg/dL (70-110)
[2022-08-16 16:55] LABS: Glucose,Whole Blood 79 mg/dL (70-110)
[2022-08-16] MEDS: PROMETHAZINE SUPPOSITORY 12.5 MG SUPP RECTAL PRN (18:19)
[2022-08-16 21:19] LABS: Glucose,Whole Blood 71 mg/dL (70-110)
[2022-08-17] MEDS: LACTATED RINGERS 1,000 ML with POTASSIUM CHLORIDE 20 MEQ IV SCH ×6 (02:00→14:34)
[2022-08-17 06:34] LABS: ALT 66 U/L (4-34); AST 73 U/L (14-36); African American GFR (CKD) >90 (>60 ml/min/1.73 sqM); Alkaline Phosphatase 115 U/L (38-126); Anion Gap 6 mmol/L; Blood Urea Nitrogen 2 mg/dL (7-17); Calcium 8.4 mg/dL (8.4-10.2); Carbon Dioxide 24 mmol/L (22-30); Chloride 106 mmol/L (98-107); Glucose 70 mg/dL (74-99); Non-African American GFR(CKD) >90 (>60 ml/min/1.73 sqM); Potassium 3.2 mmol/L (3.5-5.1); Sodium 136 mmol/L (137-145); Total Bilirubin 1.7 mg/dL (0.2-1.3); Total Protein 5.4 g/dL (6.3-8.2)
[2022-08-17 07:28] LABS: Glucose,Whole Blood 66 mg/dL (70-110)
[2022-08-17] MEDS: PROMETHAZINE SUPPOSITORY 12.5 MG SUPP RECTAL PRN (10:01)
[2022-08-17 12:25] LABS: Glucose,Whole Blood 65 mg/dL (70-110)
[2022-08-17 13:06] VITALS: BP 124/77; PULSE 83; RESP 18; TEMP 97.4
--- NOTE | 2022-08-17 13:20 | P.DS ---
Providers Date of admission: 08/15/22 12:50 Expected date of discharge: 08/17/22 Attending physician: Rajiv Donato Primary care physician: Stated None Hospital Course: This is a 36-year-old female 3 para 1 at 29 weeks who presented with complaints of hyperemesis and unable to hold anything down for about the last week. On arrival she was noted to have hypokalemia. This was replaced with several doses of potassium in her IV fluids. This morning her potassium was 3.2 and she was unable to hold down breakfast. She received another bag of fluid with potassium and so far at lunch has been able to hold some things down. She has not had any more episodes of emesis since this morning. She does have an appointment with maternal medicine on Wednesday in 2 days. At this time she feels comfortable going home and trying to nibble at food. She will follow up with maternal- medicine in 2 days and discuss possible TPN with them. She did require this in her last . She will follow up with me next week if she is not admitted there. Baby has been active on the monitor and she does have irregular mild contractions that are not painful. Patient Condition at Discharge: Stable Plan - Discharge Summary New Discharge Prescriptions: No Action ondansetron HCL [Zofran] 8 mg PO Q8HR Promethazine Suppository [Phenergan] 25 mg RECTAL QID INSULIN ASPART (NovoLOG) [NovoLOG (formulary)] 5 unit SQ BID Doxylamine Succinate [Unisom] 25 mg PO DAILY Insulin Glargine [Lantus Vial] 15 unit SQ HS Omeprazole 40 mg PO DAILY Aspirin [Children's Aspirin] 81 mg PO DAILY Discharge Medication List Aspirin [Children's Aspirin] 81 mg PO DAILY 08/09/22 [History] Doxylamine Succinate [Unisom] 25 mg PO DAILY 08/09/22 [History] INSULIN ASPART (NovoLOG) [NovoLOG (formulary)] 5 unit SQ BID 08/09/22 [History] Insulin Glargine [Lantus Vial] 15 unit SQ HS 08/09/22 [History] Omeprazole 40 mg PO DAILY 08/09/22 [History] Promethazine Suppository [Phenergan] 25 mg RECTAL QID 08/09/22 [History] ondansetron HCL [Zofran] 8 mg PO Q8HR 08/09/22 [History] Follow up Appointment(s)/Referral(s): Daniela Musa DO [Doctor of Osteopathic Medicine] - 1 Week Patient Instructions/Handouts: Hyperemesis Gravidarum (DC), Dehydration (DC) Activity/Diet/Wound Care/Special Instructions: Continue diet as instructed. Discharge Disposition: HOME SELF-CARE
== END 2022-08-17 14:30 | disposition home or self-care (01) | DRG 832 ==
LOC: FBPOP 10:51 → 4FBP 12:50
PROVIDERS: ADMIT Obstetrics & Gynecology; ATTEND Obstetrics & Gynecology
DX: O21.1 Hyperemesis gravidarum with metabolic disturbance (principal); O24.913 Unspecified diabetes mellitus in pregnancy, third trimester; O36.8130 Decreased fetal movements, third trimester, not applicable or unspecified; R74.01 Elevation of levels of liver transaminase levels; O99.513 Diseases of the respiratory system complicating pregnancy, third trimester; J45.909 Unspecified asthma, uncomplicated; T43.3X6A Underdosing of phenothiazine antipsychotics and neuroleptics, initial encounter; O99.613 Diseases of the digestive system complicating pregnancy, third trimester; K21.9 Gastro-esophageal reflux disease without esophagitis; E86.0 Dehydration; O99.283 Endocrine, nutritional and metabolic diseases complicating pregnancy, third trimester; Z3A.28 28 weeks gestation of pregnancy; Z79.82 Long term (current) use of aspirin; Z79.4 Long term (current) use of insulin; Z88.0 Allergy status to penicillin; Z88.5 Allergy status to narcotic agent
CPT/HCPCS: 59025; 80053; 85025; 96360; 99214

== ENCOUNTER → 2022-09-15 | Outpatient (CLI) | payer OTHER ==
--- NOTE | 2022-09-15 09:23 | XR ---
EXAMINATION TYPE: XR chest 2V DATE OF EXAM: 09/15/2022 9:18 AM COMPARISON: Chest radiograph 05/18/2017 TECHNIQUE: XR chest 2V Frontal and lateral views of the chest. CLINICAL INDICATION:Female, 36 years old with history of J12.9 PNEUMONIA; FINDINGS: Lungs/Pleura: There is no evidence of pleural effusion, focal consolidation, or pneumothorax. Pulmonary vascularity: Unremarkable. Heart/mediastinum: Cardiomediastinal silhouette is unremarkable. Musculoskeletal: No acute osseous pathology. IMPRESSION: No acute cardiopulmonary disease/process.
[2022-09-15 15:21] LABS: Basophils # (A) 0.02 X 10*3/uL (0.00-0.10); Basophils % (A) 0.2 %; Eosinophils # (A) 0 X 10*3/uL (0.04-0.35); Eosinophils % (A) 0 %; HCT 42.6 % (37.2-46.3); HGB 13.2 g/dL (12.0-15.0); Immature Grans, Automated 1.4 %; Lymphocytes # (A) 1.29 X 10*3/uL (0.90-5.00); Lymphocytes % (A) 14.2 %; MCV 90.4 fL (80.0-97.0); Mean Platelet Volume 9.3 fL (9.5-12.2); Monocytes # (A) 0.17 X 10*3/uL (0.20-1.00); Monocytes % (A) 1.9 %; NRBC Per 100 WBC 0 /100 WBCS (0.0-0.0); Neutrophils # (A) 7.49 X 10*3/uL (1.80-7.70); Neutrophils % (A) 82.3 %; Platelet Count 509 X 10*3/uL (140-440); RBC 4.71 X 10*6/uL (4.10-5.20); RDW 13.2 % (11.5-14.5)
[2022-09-15 15:41] LABS: African American GFR (CKD) 108.4 (60.0-200.0); Anion Gap 13.3 mmol/L (10.00-18.00); BUN/Creat Ratio 10.88 Ratio (12.00-20.00); Blood Urea Nitrogen 8.7 mg/dL (9.0-27.0); Calcium 9.1 mg/dL (8.7-10.3); Carbon Dioxide 25.7 mmol/L (20.0-27.5); Non-African American GFR(CKD) 93.5 (60.0-200.0); Potassium 4.2 mmol/L (3.5-5.5)
== END | disposition home or self-care (01) ==
LOC: LABWHC1 08:52
PROVIDERS: ATTEND Internal Medicine
DX: J12.9 Viral pneumonia, unspecified (principal)
CPT/HCPCS: 36415; 71046; 80048; 85025

== ENCOUNTER → 2022-10-08 | Outpatient (CLI) | payer OTHER ==
[2022-10-08 12:20] LABS: Glucose 2 Hour 75 mg/dL
== END | disposition home or self-care (01) ==
LOC: LABWHC1 07:54
PROVIDERS: ATTEND Obstetrics & Gynecology
DX: O24.429 Gestational diabetes mellitus in childbirth, unspecified control (principal); Z3A.00 Weeks of gestation of pregnancy not specified
CPT/HCPCS: 36415; 82951; 83036

== ENCOUNTER → 2022-10-14 | Outpatient (CLI) | payer OTHER ==
[2022-10-14 21:28] LABS: Appearance,Urine Cloudy (Clear); Bilirubin,Urine Negative (Negative); Blood,Urine Large (Negative); Color,Urine Yellow (Yellow); Ketones,Urine Negative (Negative); Nitrite,Urine Positive (Negative); PH, Urine 6.5 (5.0-8.0)
[2022-10-14 21:58] LABS: Bacteria,Urine 4+ /HPF (None Seen)
== END | disposition home or self-care (01) ==
LOC: LABWHC1 11:22
PROVIDERS: ATTEND Internal Medicine
DX: N39.0 Urinary tract infection, site not specified (principal)
CPT/HCPCS: 81001; 87086

== ENCOUNTER 2022-11-04 15:30 | Inpatient (IN) | payer OTHER ==
[2022-11-04] MEDS ORDERED: SODIUM CHLORIDE 0.9% 1,000 ML IV STA (16:18)
[2022-11-04] MEDS ORDERED: ONDANSETRON 4 MG/2 ML VIAL IVP STA (16:18)
[2022-11-04] MEDS ORDERED: HYDROmorphone 1 MG/ML 1 ML SYRINGE IVP STA (16:18)
--- NOTE | 2022-11-04 16:53 | ED ---
Abdominal Pain HPI - General Chief Complaint: Abdominal Pain Stated Complaint: abd pain, vomiting Time Seen by Provider: 11/04/22 16:03 Source: patient Mode of arrival: ambulatory - History of Present Illness Initial Comments: Patient is a 36-year-old female presenting with chief complaint of abdominal pain. Patient is planning pain localized to the bilateral upper quadrants st arted yesterday. She states it feels like a cramping/gas pain. Pain worsened today shortly after eating breakfast. Surgical history includes 2 sections. No chest pain or difficulty breathing. Admits to nausea and vomiting. No diarrhea, hematochezia, melena. Patient states she had a low- grade fever of 100.3 at home. No palpitations, weakness, numbness, tingling, headache, vision or hearing changes. She has taken Tums and Advil at home without relief of her symptoms. - Related Data Home Medications Medication Instructions Recorded Confirmed Albuterol Sulfate [Proair Hfa] 2 puff INHALATION RT-QID PRN 11/04/22 11/04/22 Budesonide/Formoterol Fumarate 1 puff INHALATION RT-BID PRN 11/04/22 11/04/22 [Symbicort 80-4.5 Mcg Inhaler] Ibuprofen [Motrin Ib] 400 mg PO Q8H PRN 11/04/22 11/04/22 Allergies Allergy/AdvReac Type Severity Reaction Status Date / Time codeine Allergy Rash/Hives Verified 11/04/22 17:43 Penicillins Allergy Rash/Hives Verified 11/04/22 17:43 Review of Systems ROS Statement: Those systems with pertinent positive or pertinent negative responses have been documented in the HPI. ROS Other: All systems not noted in ROS Statement are negative. Past Medical History Past Medical History: Asthma, Diabetes Mellitus, GERD/Reflux Additional Past Medical History / Comment(s): Hx Gestational Diabetes. History of Any Multi-Drug Resistant Organisms: None Reported Past Surgical History: Breast Surgery, Section, Orthopedic Surgery, Tonsillectomy Additional Past Surgical History / Comment(s): CYST REMOVED RT WRIST, LT HEEL SPUR REMOVED, BREAST REDUCTION, CTR-RT HAND, D&C. Past Anesthesia/Blood Transfusion Reactions: Motion Sickness, Postoperative Nausea & Vomiting (PONV) Past Psychological History: Depression Smoking Status: Never smoker - Past Family History Mother Family Medical History: No Reported History General Exam Limitations: no limitations General appearance: alert, in no apparent distress Head exam: Present: atraumatic, normocephalic, normal inspection Eye exam: Present: normal appearance Neck exam: Present: normal inspection, full ROM Respiratory exam: Present: normal lung sounds bilaterally. Absent: respiratory distress, wheezes, rales, rhonchi, stridor Cardiovascular Exam: Present: regular rate, normal rhythm, normal heart sounds. Absent: systolic murmur, diastolic murmur, rubs, gallop, clicks GI/Abdominal exam: Present: soft, tenderness, guarding. Absent: distended, rebound, rigid Neurological exam: Present: alert, oriented X3, CN II-XII intact Psychiatric exam: Present: normal affect, normal mood Skin exam: Present: warm, dry, intact, normal color. Absent: rash Course Vital Signs 11/04/22 11/04/22 11/04/22 15:48 18:25 19:13 Temperature 98.4 F 97.0 F L Pulse Rate 84 72 83 Respiratory 16 14 16 Rate Blood Pressure 139/88 132/68 128/83 O2 Sat by Pulse 98 96 99 Oximetry Medical Decision Making - Medical Decision Making Was pt. sent in by a medical professional or institution (, PA, TOBACCO ACREAGE MEASURER, urgent care, hospital, or senior care...) When possible be specific @ -[No] Did you speak to anyone other than the patient for history (EMS, parent, family, police, friend...)? What history was obtained from this source @ -[No] Did you review nursing and triage notes (agree or disagree)? Why? @ -[I reviewed and agree with nursing and triage notes] Were old charts reviewed (outside hosp., previous admission, EMS record, old EKG, old radiological studies, urgent care reports/EKG's, senior care records)? Report findings @ -Gallbladder ultrasound from 2019 as reviewed Differential Diagnosis (chest pain, altered mental status, abdominal pain women, abdominal pain men, vaginal bleeding, weakness, fever, dyspnea, syncope, headache, dizziness, GI bleed, back pain, seizure, CVA, palpatations, mental health)? @ -[facility] Differential Abdominal Pain Women: Appendicitis, Cholecystitis, diverticulosis, ischemic bowel, pancreatitis, hepatitis, UTI, gastroenteritis, bowel obstruction, constipation, inflammatory bowel, hepatitis, peptic ulcer disease, kidney stone... This is not meant to be an all-inclusive list EKG interpreted by me (3pts min.). @ -[As above] X-rays interpreted by me (1pt min.). @ -[None done] CT interpreted by me (1pt min.). @ -[None done] U/S interpreted by me (1pt. min.). @ -No, radiologist report is reviewed. Cholelithiasis is noted with dilated CBD at 0.7 cm. Hepatic steatosis is noted. What testing was considered but not performed or refused? (CT, X-rays, U/S, labs)? Why? @ -[None] What meds were considered but not given or refused? Why? @ -[None] Did you discuss the management of the patient with other professionals (martina rhoades i.e. , PA, TOBACCO ACREAGE MEASURER, lab, RT, psych nurse, social sciences department chair, metal plater, teacher, chief sales officer, manager case management)? Give summary @ -Case discussed with admitting physician Dr. Chaidez, general surgeon Dr. Hooper, and GI Dr. Santana Was smoking cessation discussed for >3mins.? @ -[No] Was critical care preformed (if so, how long)? @ -[No] Were there social determinants of health that impacted care today? How? (Homelessness, low income, unemployed, alcoholism, drug addiction, transportation, low edu. Level, literacy, decrease access to med. care, long-term, rehab)? @ -[No] Was there de-escalation of care discussed even if they declined (Discuss DNR or withdrawal of care, Hospice)? DNR status @ -[No] What co-morbidities impacted this encounter? (DM, HTN, Smoking, COPD, CAD, Cancer, CVA, ARF, Chemo, Hep., AIDS, mental health diagnosis, sleep apnea, morbid obesity)? @ -[None] Was patient admitted / discharged? Hospital course, mention meds given and route, prescriptions, significant lab abnormalities, going to OR and other pertinent info. @ -Patient is a 36-year-old female presenting with chief complaint of bilateral upper quadrant abdominal pain that started yesterday. Accompanied by vomiting. On physical examination there is tenderness to the upper quadrants. Lab work shows total bilirubin 3.6. AST 88. ALT 103. Alkaline phosphatase 157. Amyl ase 1370. Ultrasound cholelithiasis and dilated common bile duct. Patient will be admitted for gallstone pancreatitis. I spoke with Dr. Chaidez who accepted admission. Discussed with Dr. Hooper and Dr. Santana who agreed to be on consult. Patient is agreeable with this plan. I discussed this case with my attending Dr. Angel Undiagnosed new problem with uncertain prognosis? @ -[No] Drug Therapy requiring intensive monitoring for toxicity (Heparin, Nitro, Insulin, Cardizem)? @ -[No] Were any procedures done? @ -[No] Diagnosis/symptom? @ -Gallstone pancreatitis Acute, or Chronic, or Acute on Chronic? @ -Acute Uncomplicated (without systemic symptoms) or Complicated (systemic symptoms)? @ -Complicated Side effects of treatment? @ -[No] Exacerbation, Progression, or Severe Exacerbation? @ -[No] Poses a threat to life or bodily function? How? (Chest pain, [place], [place], pneumonia, PE, COPD, DKA, ARF, appy, cholecystitis, CVA, Diverticulitis, Homicidal, Suicidal, threat to staff... and all critical care pts) @ -Yes - Lab Data Result diagrams: 11/04/22 16:46 11/04/22 16:46 Lab Results 11/04/22 11/04/22 11/04/22 Range/Units 16:46 16:46 16:46 WBC 9.0 (3.8-10.6) k/uL RBC 4.58 (3.80-5.40) m/uL Hgb 12.8 (11.4-16.0) gm/dL Hct 38.5 (34.0-46.0) % MCV 84.1 (80.0-100.0) fL MCH 28.0 (25.0-35.0) pg MCHC 33.3 (31.0-37.0) g/dL RDW 14.7 (11.5-15.5) % Plt Count 326 (150-450) k/uL MPV 7.2 Neutrophils % 81 % Lymphocytes % 11 % Monocytes % 5 % Eosinophils % 1 % Basophils % 0 % Neutrophils # 7.3 (1.3-7.7) k/uL Lymphocytes # 1.0 (1.0-4.8) k/uL Monocytes # 0.5 (0-1.0) k/uL Eosinophils # 0.1 (0-0.7) k/uL Basophils # 0.0 (0-0.2) k/uL PT 10.8 (9.0-12.0) sec INR 1.0 (<1.2) APTT 24.1 (22.0-30.0) sec Sodium (137-145) mmol/L Potassium (3.5-5.1) mmol/L Chloride (98-107) mmol/L Carbon Dioxide (22-30) mmol/L Anion Gap mmol/L BUN (7-17) mg/dL Creatinine (0.52-1.04) mg/dL Est GFR (CKD-EPI)AfAm (>60 ml/min/1.73 sqM) Est GFR (CKD-EPI)NonAf (>60 ml/min/1.73 sqM) Glucose (74-99) mg/dL Plasma Lactic Acid Juan M (0.7-2.0) mmol/L Calcium (8.4-10.2) mg/dL Total Bilirubin (0.2-1.3) mg/dL AST (14-36) U/L ALT (4-34) U/L Alkaline Phosphatase (38-126) U/L Troponin I (0.000-0.034) ng/mL Total Protein (6.3-8.2) g/dL Albumin (3.5-5.0) g/dL Amylase (30-110) U/L Lipase (23-300) U/L Urine Color Yellow Urine Appearance Cloudy H (Clear) Urine pH 6.0 (5.0-8.0) Ur Specific Thrall 1.027 (1.001-1.035) Urine Protein Trace H (Negative) Urine Glucose (UA) Negative (Negative) Urine Ketones Negative (Negative) Urine Blood Negative (Negative) Urine Nitrite Negative (Negative) Urine Bilirubin 1+ H (Negative) Urine Urobilinogen 2.0 (<2.0) mg/dL Ur Leukocyte Esterase Negative (Negative) Urine RBC <1 (0-5) /hpf Urine WBC 2 (0-5) /hpf Ur Squamous Epith Cells 13 H (0-4) /hpf Urine Mucus Rare H (None) /hpf Urine HCG, Qual (Not Detectd) 11/04/22 11/04/22 11/04/22 Range/Units 16:46 16:46 16:46 WBC (3.8-10.6) k/uL RBC (3.80-5.40) m/uL Hgb (11.4-16.0) gm/dL Hct (34.0-46.0) % MCV (80.0-100.0) fL MCH (25.0-35.0) pg MCHC (31.0-37.0) g/dL RDW (11.5-15.5) % Plt Count (150-450) k/uL MPV Neutrophils % % Lymphocytes % % Monocytes % % Eosinophils % % Basophils % % Neutrophils # (1.3-7.7) k/uL Lymphocytes # (1.0-4.8) k/uL Monocytes # (0-1.0) k/uL Eosinophils # (0-0.7) k/uL Basophils # (0-0.2) k/uL PT (9.0-12.0) sec INR (<1.2) APTT (22.0-30.0) sec Sodium 138 (137-145) mmol/L Potassium 3.7 (3.5-5.1) mmol/L Chloride 102 (98-107) mmol/L Carbon Dioxide 32 H (22-30) mmol/L Anion Gap 4 mmol/L BUN 13 (7-17) mg/dL Creatinine 0.71 (0.52-1.04) mg/dL Est GFR (CKD-EPI)AfAm >90 (>60 ml/min/1.73 sqM) Est GFR (CKD-EPI)NonAf >90 (>60 ml/min/1.73 sqM) Glucose 90 (74-99) mg/dL Plasma Lactic Acid Juan M 0.8 (0.7-2.0) mmol/L Calcium 8.7 (8.4-10.2) mg/dL Total Bilirubin 3.6 H (0.2-1.3) mg/dL AST 88 H (14-36) U/L ALT 103 H (4-34) U/L Alkaline Phosphatase 157 H (38-126) U/L Troponin I (0.000-0.034) ng/mL Total Protein 7.1 (6.3-8.2) g/dL Albumin 4.1 (3.5-5.0) g/dL Amylase 1370 H* (30-110) U/L Lipase >74817 H (23-300) U/L Urine Color Urine Appearance (Clear) Urine pH (5.0-8.0) Ur Specific Thrall (1.001-1.035) Urine Protein (Negative) Urine Glucose (UA) (Negative) Urine Ketones (Negative) Urine Blood (Negative) Urine Nitrite (Negative) Urine Bilirubin (Negative) Urine Urobilinogen (<2.0) mg/dL Ur Leukocyte Esterase (Negative) Urine RBC (0-5) /hpf Urine WBC (0-5) /hpf Ur Squamous Epith Cells (0-4) /hpf Urine Mucus (None) /hpf Urine HCG, Qual Not Detected (Not Detectd) 11/04/22 Range/Units 16:46 WBC (3.8-10.6) k/uL RBC (3.80-5.40) m/uL Hgb (11.4-16.0) gm/dL Hct (34.0-46.0) % MCV (80.0-100.0) fL MCH (25.0-35.0) pg MCHC (31.0-37.0) g/dL RDW (11.5-15.5) % Plt Count (150-450) k/uL MPV Neutrophils % % Lymphocytes % % Monocytes % % Eosinophils % % Basophils % % Neutrophils # (1.3-7.7) k/uL Lymphocytes # (1.0-4.8) k/uL Monocytes # (0-1.0) k/uL Eosinophils # (0-0.7) k/uL Basophils # (0-0.2) k/uL PT (9.0-12.0) sec INR (<1.2) APTT (22.0-30.0) sec Sodium (137-145) mmol/L Potassium (3.5-5.1) mmol/L Chloride (98-107) mmol/L Carbon Dioxide (22-30) mmol/L Anion Gap mmol/L BUN (7-17) mg/dL Creatinine (0.52-1.04) mg/dL Est GFR (CKD-EPI)AfAm (>60 ml/min/1.73 sqM) Est GFR (CKD-EPI)NonAf (>60 ml/min/1.73 sqM) Glucose (74-99) mg/dL Plasma Lactic Acid Juan M (0.7-2.0) mmol/L Calcium (8.4-10.2) mg/dL Total Bilirubin (0.2-1.3) mg/dL AST (14-36) U/L ALT (4-34) U/L Alkaline Phosphatase (38-126) U/L Troponin I <0.012 (0.000-0.034) ng/mL Total Protein (6.3-8.2) g/dL Albumin (3.5-5.0) g/dL Amylase (30-110) U/L Lipase (23-300) U/L Urine Color Urine Appearance (Clear) Urine pH (5.0-8.0) Ur Specific Thrall (1.001-1.035) Urine Protein (Negative) Urine Glucose (UA) (Negative) Urine Ketones (Negative) Urine Blood (Negative) Urine Nitrite (Negative) Urine Bilirubin (Negative) Urine Urobilinogen (<2.0) mg/dL Ur Leukocyte Esterase (Negative) Urine RBC (0-5) /hpf Urine WBC (0-5) /hpf Ur Squamous Epith Cells (0-4) /hpf Urine Mucus (None) /hpf Urine HCG, Qual (Not Detectd) Disposition Clinical Impression: Gallstone pancreatitis Disposition: ADMITTED IP TO THIS [facility] Condition: Fair Referrals: Erasto Chaidez MD [Primary Care Provider] - 1-2 days Time of Disposition: 18:30 Decision to Admit Reason: Admit from EC Decision Date: 11/04/22 Decision Time: 18:30
[2022-11-04 16:58] LABS: Basophils % (A) 0 %; Eosinophils # (A) 0.1 k/uL (0-0.7); Eosinophils % (A) 1 %; HCT 38.5 % (34.0-46.0); HGB 12.8 gm/dL (11.4-16.0); Lymphocytes % (A) 11 %; MCHC 33.3 g/dL (31.0-37.0); MCV 84.1 fL (80.0-100.0); Mean Platelet Volume 7.2; Monocytes # (A) 0.5 k/uL (0-1.0); Monocytes % (A) 5 %; Neutrophils # (A) 7.3 k/uL (1.3-7.7); Neutrophils % (A) 81 %; Platelet Count 326 k/uL (150-450); RBC 4.58 m/uL (3.80-5.40); RDW 14.7 % (11.5-15.5)
[2022-11-04 17:07] LABS: ALT 103 U/L (4-34); AST 88 U/L (14-36); African American GFR (CKD) >90 (>60 ml/min/1.73 sqM); Albumin 4.1 g/dL (3.5-5.0); Alkaline Phosphatase 157 U/L (38-126); Anion Gap 4 mmol/L; Blood Urea Nitrogen 13 mg/dL (7-17); Calcium 8.7 mg/dL (8.4-10.2); Carbon Dioxide 32 mmol/L (22-30); Chloride 102 mmol/L (98-107); Glucose 90 mg/dL (74-99); Non-African American GFR(CKD) >90 (>60 ml/min/1.73 sqM); Potassium 3.7 mmol/L (3.5-5.1); Sodium 138 mmol/L (137-145); Total Bilirubin 3.6 mg/dL (0.2-1.3); Total Protein 7.1 g/dL (6.3-8.2)
[2022-11-04 17:30] LABS: Partial Thromboplastin Time 24.1 sec (22.0-30.0); Prothrombin Time 10.8 sec (9.0-12.0)
[2022-11-04 17:34] LABS: Amylase 1370 U/L (30-110)
--- NOTE | 2022-11-04 17:42 | US ---
EXAMINATION TYPE: US abdomen limited DATE OF EXAM: 11/04/2022 COMPARISON: 08/03/20 CLINICAL HISTORY: upper abd pain. Pt states she had GB problems in 2019, but was . RUQ pain s nadira yesterday TECHNIQUE: Multiple sonographic images of the right upper quadrant are obtained. FINDINGS: EXAM MEASUREMENTS: Liver Length: 16.3 cm Gallbladder Wall: 0.3 cm CBD: 0.7 cm Right Kidney: 12.1 x 4.9 x 5.1 cm Pancreas: Parts visualized appear wnl Liver: heterogenous and difficult to penetrate Gallbladder: Multiple gallstones visualized Evidence for sonographic Sun's sign: Yes CBD: Appears to be dilated measuring 0.7cm Right Kidney: wnl IMPRESSION: 1. Cholelithiasis. 2. Hepatocellular disease commonly relating to hepatic steatosis.
[2022-11-04 18:07] LABS: Lipase >20000 U/L (23-300)
[2022-11-04] MEDS: LACTATED RINGERS 1,000 ML IV SCH ×9 (18:21→22:58)
[2022-11-04] MEDS ORDERED: NALOXONE 0.4 MG/ML 1 ML VIAL IV PRN (18:34)
[2022-11-04 18:46] LABS: Appearance,Urine Cloudy (Clear); Bilirubin,Urine 1+ (Negative); Blood,Urine Negative (Negative); Color,Urine Yellow; Glucose,Urine (UA) Negative (Negative); Ketones,Urine Negative (Negative); Leukocyte Esterase,Urine Negative (Negative); Mucus,Urine Rare /hpf; Nitrite,Urine Negative (Negative); Protein,Urine Trace (Negative); RBC,Urine <1 /hpf (0-5); Specific Gravity,Urine 1.027 (1.001-1.035); Squamous Epithelial Cell,Urine 13 /hpf (0-4); WBC,Urine 2 /hpf (0-5)
[2022-11-04] MEDS: HYDROmorphone 1 MG/ML 1 ML SYRINGE IVP PRN (22:50)
[2022-11-05] MEDS: LACTATED RINGERS 1,000 ML IV SCH ×5 (00:54→20:52)
[2022-11-05] MEDS: KETOROLAC 15 MG/ML 1 ML VIAL IVP PRN ×2 (02:34→08:17)
[2022-11-05] MEDS: HYDROmorphone 1 MG/ML 1 ML SYRINGE IVP PRN ×4 (02:35→19:05)
[2022-11-05] MEDS: ONDANSETRON 4 MG/2 ML VIAL IVP PRN ×3 (04:55→19:05)
[2022-11-05] MEDS ORDERED: PROCHLORPERAZINE INJ 10 MG/2 ML VIAL IVP PRN (08:42)
[2022-11-05 08:56] LABS: Basophils % (A) 0 %; Eosinophils % (A) 0 %; HCT 39.7 % (34.0-46.0); HGB 12.8 gm/dL (11.4-16.0); Lymphocytes # (A) 1.3 k/uL (1.0-4.8); Lymphocytes % (A) 14 %; MCH 27.4 pg (25.0-35.0); MCHC 32.3 g/dL (31.0-37.0); MCV 84.9 fL (80.0-100.0); Monocytes # (A) 0.2 k/uL (0-1.0); Monocytes % (A) 3 %; Neutrophils # (A) 7.7 k/uL (1.3-7.7); Neutrophils % (A) 83 %; Platelet Count 339 k/uL (150-450); RBC 4.68 m/uL (3.80-5.40); RDW 14.1 % (11.5-15.5); WBC 9.3 k/uL (3.8-10.6)
[2022-11-05] MEDS: PANTOPRAZOLE 40 MG/10 ML VIAL IVP SCH (08:58)
[2022-11-05] MEDS ORDERED: SYMBICORT 80-4.5 MCG INHALER INHALATION PRN (09:01)
[2022-11-05] MEDS ORDERED: ALBUTEROL NEBULIZED 2.5 MG/3 ML INHALATION PRN (09:01)
--- NOTE | 2022-11-05 09:26 | P.HPIM ---
History of Present Illness H&P Date: 11/05/22 (Acute pancreatitis probably secondary to the cholecystitis and cholelithiasis) Chief Complaint: Nausea and vomiting started on Wednesday with several vomiting episodes with History and physical dictation Date of service 11/05/[address] Ty. Chief complaint: Patient started on Wednesday to feel nausea and vomiting after she ate breakfast with hamburger. Nausea and vomiting was fluctuating and continued to Wednesday which was progressed until she asked her to bring her to the emergency room at [facility] History of present illness 36 years old -Irish female, started to experience of her abdominal pain on Wednesday with the nausea and vomiting no diarrhea Continue episodically followed by steady pain mainly in the upper abdomen and right upper quadrant and each time she eats breakfast oatmeal as hamburgers ask her exacerbation of the pain is present until Wednesday evening she asked her to bring her to the hospital ER at [facility] where they found that laboratory indicating acute pancreatitis with the serum lipase more than 20,000 and amylase 1370 with abnormal liver enzyme AST 88 a LT 103 and alkaline phosphatase 157 added to bilirubin 3.6 all abnormal. Patient nothing by mouth and consultation with Dr. Shook surgeon as well as GI Dr. Gama as well as Dr. Busby infectious disease for the possibility of ant ibiotic and I did speak with nurse practitioner in the ER to do blood culture, wasn't done Patient stated that her temperature 100+ at home however when she came to the ER was negative. Past history: History of asthma intermittent currently stable History of miscarriage with anemia however currently hemoglobin is recovered and advised to stop the iron, she stated that she stopped it 2 days ago. 2 para 1. No history of surgery. 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 Hematology recovered anemia. Other than above no significance as reviewed the rest of the 14 bullet Vital sign on admission temperature 97.4 F oral and her temperature at home she checked it by thermometer more than 100 with low-grade temperature her pulse rate 69 bpm and respiratory rate 18 and the blood pressure 136/85 with a mean of 102 and oxygen saturation on room air on admission 100%. As patient admitted to the floor no evidence of elevated temperature and her blood pressure this morning 124/88 and the pulse 80/m respiratory rate 16 Chief complain of persistent nausea and vomiting and treated with Zofran did not help and subsequently given chem benzene. The head was normocephalic atraumatic, pupils equal reactive, conjunctiva was pink sclera nonicteric however the bilirubin slightly elevated Oropharynx negative natural teeth Neck was supple no JVD no thyromegaly no lymphadenopathy trachea midline. Chest is clear to auscultation percussion no evidence of wheezes or rhonchi's Heart regular sinus rhythm no arrhythmia no palpitation Abdomen maximum tenderness in the right upper quadrant at the level of the gallbladder and the liver however also the epigastric area is painful with deep palpation she had a positive bowel sounds still nauseated. Extremities no edema. Pulses and able to ambulate with the pain is still pre sent in the abdomen Psychiatry stable Neurological he no lateralizing sign and stable Assessment: Acute pancreatitis with elevated lipase and Amylase and ultrasound done in the ER with the cholelithiasis. Persistent nausea and vomiting and dehydration Plan: Consultation with Dr. Shook surgeon, consultation with gastroenterology, consultation with Dr. Busby infectious disease. And obtaining blood culture 2. Past Medical History Past Medical History: Asthma, GERD/Reflux Additional Past Medical History / Comment(s): Hx Gestational Diabetes. History of Any Multi-Drug Resistant Organisms: None Reported Past Surgical History: Breast Surgery, Section, Orthopedic Surgery, Tonsillectomy Additional Past Surgical History / Comment(s): CYST REMOVED RT WRIST, LT HEEL SPUR REMOVED, BREAST REDUCTION, CTR-RT HAND, D&C. Past Anesthesia/Blood Transfusion Reactions: Motion Sickness, Postoperative Nausea & Vomiting (PONV) Past Psychological History: Depression Smoking Status: Never smoker Past Alcohol Use History: Rare Past Drug Use History: None Reported - Past Family History Mother Family Medical History: No Reported History Medications and Allergies Home Medications Medication Instructions Recorded Confirmed Type Albuterol Sulfate [Proair Hfa] 2 puff INHALATION RT-QID PRN 11/04/22 11/04/22 History Budesonide/Formoterol Fumarate 1 puff INHALATION RT-BID PRN 11/04/22 11/04/22 History [Symbicort 80-4.5 Mcg Inhaler] Ibuprofen [Motrin Ib] 400 mg PO Q8H PRN 11/04/22 11/04/22 History Allergies Allergy/AdvReac Type Severity Reaction Status Date / Time codeine Allergy Rash/Hives Verified 11/04/22 17:43 Penicillins Allergy Rash/Hives Verified 11/04/22 17:43 Physical Exam Vitals: Vital Signs Temp Pulse Pulse Resp BP BP BP 11/05/22 07:00 97.7 F 80 16 124/88 11/05/22 02:21 97.4 F L 59 L 18 134/87 11/05/22 01:32 69 18 11/04/22 23:05 69 18 11/04/22 22:00 97.4 F L 69 18 136/85 11/04/22 20:55 83 16 11/04/22 19:13 83 16 128/83 11/04/22 18:25 97.0 F L 72 14 132/68 11/04/22 15:48 98.4 F 84 16 139/88 Pulse Ox 11/05/22 07:00 100 11/05/22 02:21 100 11/05/22 01:32 11/04/22 23:05 11/04/22 22:00 100 11/04/22 20:55 99 11/04/22 19:13 99 11/04/22 18:25 96 11/04/22 15:48 98 Intake and Output 11/04/22 11/05/22 11/05/22 22:59 06:59 14:59 Other: Voiding Method Toilet # Voids 1 2 Weight 99.79 kg Results CBC & Chem 7: 11/05/22 08:26 11/04/22 16:46 Labs: Abnormal Lab Results - Last 24 Hours (Table) 11/04/22 11/04/22 Range/Units 16:46 16:46 Carbon Dioxide 32 H (22-30) mmol/L Total Bilirubin 3.6 H (0.2-1.3) mg/dL AST 88 H (14-36) U/L ALT 103 H (4-34) U/L Alkaline Phosphatase 157 H (38-126) U/L Amylase 1370 H* (30-110) U/L Lipase >83110 H (23-300) U/L Urine Appearance Cloudy H (Clear) Urine Protein Trace H (Negative) Urine Bilirubin 1+ H (Negative) Ur Squamous Epith Cells 13 H (0-4) /hpf Urine Mucus Rare H (None) /hpf Thrombosis Risk Factor Assmnt - Choose All That Apply Each Factor Represents 1 point: Obesity (BMI >25) Other Risk Factors: No Other congenital or acquired thrombophilia - If yes, enter type in comment: No Thrombosis Risk Factor Assessment Total Risk Factor Score: 1 Thrombosis Risk Factor Assessment Level: Low Risk
[2022-11-05 09:36] LABS: ALT 94 U/L (4-34); AST 69 U/L (14-36); African American GFR (CKD) >90 (>60 ml/min/1.73 sqM); Albumin 3.6 g/dL (3.5-5.0); Albumin/Globulin Ratio 1.3; Alkaline Phosphatase 163 U/L (38-126); Anion Gap 7 mmol/L; Blood Urea Nitrogen 7 mg/dL (7-17); Calcium 8.5 mg/dL (8.4-10.2); Carbon Dioxide 24 mmol/L (22-30); Chloride 107 mmol/L (98-107); Globulin 2.8 g/dL; Glucose 84 mg/dL (74-99); Non-African American GFR(CKD) >90 (>60 ml/min/1.73 sqM); Sodium 138 mmol/L (137-145); Total Bilirubin 3.5 mg/dL (0.2-1.3); Total Protein 6.4 g/dL (6.3-8.2)
[2022-11-05 10:34] LABS: Lipase 5993 U/L (23-300)
--- NOTE | 2022-11-05 10:53 | P.CONS ---
History of Present Illness - Reason for Consult Consult date: 11/05/22 Gallstone pancreatitis Requesting physician: Ra Cid - Chief Complaint Abdominal pain - History of Present Illness This is a pleasant female who presented to the emergency department with complaints of epigastric and right upper quadrant pain. Patient states Wednesday after lunch eating a cheeseburger she felt abdominal pain and discomfort, she thought it was just more gas and bloating took some Tums and ibuprofen seem to help slightly. She continued throughout the day to have some discomfort but not severe. Yesterday after eating breakfast cheek and had that severe pain in the epigastric and right upper quadrant region associated with nausea and vomiting. Patient does have a history of cholelithiasis however during her last episode with symptoms she was . She states at home had a low-grade temp of 100.6. She was afebrile on admission and has been since. She states abdominal pain has improved some with pain medications. She still had some nausea and vomiting through the night. She's been nothing by mouth. CBC on admission unremarkable, total bilirubin 3.6 AST 88 ALT 103 alkaline phosphatase 157 amylase 1370 and lipase greater than 20,000. Abdominal ultrasound 1. cholelithiasis. 2. Hepatocellular disease, likely related to hepatic steatosis Review of Systems REVIEW OF SYSTEMS: CARDIOPULMONARY: No chest pain or shortness of breath. Gastrointestinal: Burning sensation in epigastric and right upper quadrant pain associated with nausea and vomiting. No hematemesis, coffee-ground emesis. No rectal bleeding, or melena. GENITOURINARY: No dysuria or hematuria. MUSCULOSKELETAL: Reports normal range of motion. SKIN: No rashes. No jaundice. ENDOCRINE: No chills, fevers. No excessive weight gain or loss. No polydipsia or polyuria. PSYCHIATRIC: Unremarkable. NEUROLOGY: No change in mental status. Denies dizziness, headache. ENT: Vision unremarkable. CONSTITUTIONAL: No recent weight loss. No fever, chills, night sweats. Past Medical History Past Medical History: Asthma, GERD/Reflux Additional Past Medical History / Comment(s): Hx Gestational Diabetes. History of Any Multi-Drug Resistant Organisms: None Reported Past Surgical History: Breast Surgery, Section, Orthopedic Surgery, Tonsillectomy Additional Past Surgical History / Comment(s): CYST REMOVED RT WRIST, LT HEEL SPUR REMOVED, BREAST REDUCTION, CTR-RT HAND, D&C. Past Anesthesia/Blood Transfusion Reactions: Motion Sickness, Postoperative Nausea & Vomiting (PONV) Past Psychological History: Depression Smoking Status: Never smoker Past Alcohol Use History: Rare Past Drug Use History: None Reported - Past Family History Mother Family Medical History: No Reported History Medications and Allergies Home Medications Medication Instructions Recorded Confirmed Type Albuterol Sulfate [Proair Hfa] 2 puff INHALATION RT-QID PRN 11/04/22 11/04/22 History Budesonide/Formoterol Fumarate 1 puff INHALATION RT-BID PRN 11/04/22 11/04/22 History [Symbicort 80-4.5 Mcg Inhaler] Ibuprofen [Motrin Ib] 400 mg PO Q8H PRN 11/04/22 11/04/22 History Allergies Allergy/AdvReac Type Severity Reaction Status Date / Time codeine Allergy Rash/Hives Verified 11/04/22 17:43 Penicillins Allergy Rash/Hives Verified 11/04/22 17:43 Physical Exam Vitals: Vital Signs Temp Pulse Pulse Resp BP BP BP 11/05/22 07:00 97.7 F 80 16 124/88 11/05/22 02:21 97.4 F L 59 L 18 134/87 11/05/22 01:32 69 18 11/04/22 23:05 69 18 11/04/22 22:00 97.4 F L 69 18 136/85 11/04/22 20:55 83 16 11/04/22 19:13 83 16 128/83 11/04/22 18:25 97.0 F L 72 14 132/68 11/04/22 15:48 98.4 F 84 16 139/88 Pulse Ox 11/05/22 07:00 100 11/05/22 02:21 100 11/05/22 01:32 11/04/22 23:05 11/04/22 22:00 100 11/04/22 20:55 99 11/04/22 19:13 99 11/04/22 18:25 96 11/04/22 15:48 98 Intake and Output 11/04/22 11/05/22 11/05/22 22:59 06:59 14:59 Other: Voiding Method Toilet # Voids 1 2 Weight 99.79 kg General appearance: The patient is alert, oriented, appears in no acute distress. HET: Head is normocephalic and atraumatic. Conjunctiva pink. Sclera anicteric. Neck: Supple without lymphadenopathy. Trachea midline. Heart: S1 S2. Regular rate and rhythm. Lungs: Clear to auscultation. Abdomen: Soft, right upper quadrant tenderness, nondistended with bowel sounds. No guarding or rigidity. Skin: No rashes. No jaundice. Extremities: Normal skin color and turgor. No pedal edema. Neurological: No focal deficits. Alert and oriented x3. Results CBC & Chem 7: 11/05/22 08:26 11/05/22 08:26 Labs: Abnormal Lab Results - Last 24 Hours (Table) 11/04/22 11/04/22 Range/Units 16:46 16:46 Carbon Dioxide 32 H (22-30) mmol/L Total Bilirubin 3.6 H (0.2-1.3) mg/dL AST 88 H (14-36) U/L ALT 103 H (4-34) U/L Alkaline Phosphatase 157 H (38-126) U/L Amylase 1370 H* (30-110) U/L Lipase >48528 H (23-300) U/L Urine Appearance Cloudy H (Clear) Urine Protein Trace H (Negative) Urine Bilirubin 1+ H (Negative) Ur Squamous Epith Cells 13 H (0-4) /hpf Urine Mucus Rare H (None) /hpf Assessment and Plan (1) Gallstone pancreatitis Narrative/Plan: 28-year-old female with a known history of cholelithiasis who presented to the emergency department with severe epigastric and right upper quadrant pain associated with nausea and vomiting. Ultrasound shows cholelithiasis, hepatic steatosis. Abdominal pain improved with pain medication, nausea and vomiting improved. Patient was noted to have significantly elevated LFTs as well as amylase and lipase consistent with a gallstone pancreatitis. She's been afebrile, no evidence of leukocytosis. Repeat labs today total bilirubin 3.5 AST 69 ALT 94 alkaline phosphatase 163 and lipase 5993. Current Visit: Yes Status: Acute Code(s): K85.10 - BILIARY ACUTE PANCREATITIS WITHOUT NECROSIS OR INFECTION SNOMED Code(s): 92484799 (2) Abdominal pain Current Visit: Yes Status: Acute Code(s): R10.9 - UNSPECIFIED ABDOMINAL PAIN SNOMED Code(s): 62818410 Plan: 1. Continue symptomatic supportive care 2. Continue pain management 3. Protonix 40 mg daily 4. Antibiotics as needed 5. Keep nothing by mouth 6. Repeat daily labs 7. Await recommendations from general surgery 8. Further recommendations forthcoming based on clinical course Thank you for this consultation, we will continue to follow. Dr. Ban Santana I agree with the dictator's note, documented as a scribe by Nicolette Angelo.
--- NOTE | 2022-11-05 12:58 | P.GSCN ---
History of Present Illness Consult date: 11/05/22 History of present illness: CHIEF COMPLAINT: Abdominal pain HISTORY OF PRESENT ILLNESS: This is a 36-year-old female who presented to the hospital with complaints of abdominal pain. Patient reports that symptoms started Wednesday evening after eating a cheeseburger. She reports that she has pain across the upper abdomen but mostly in the right upper quadrant. She's been having nausea and vomiting. She did have a low-grade temp of 100.3 at home. Patient had abdominal ultrasound completed showing cholelithiasis and hepatic steatosis. Patient had elevated liver enzymes and elevated lipase with evidence of a gallstone pancreatitis. Patient is followed by GI service. Patient surgical history does include 2 C-sections. She denies any cardiac history. PAST MEDICAL HISTORY: See below PAST SURGICAL HISTORY: See below MEDICATIONS: See below ALLERGIES: See below SOCIAL HISTORY: No illicit drug use. REVIEW OF SYSTEMS: CONSTITUTIONAL: Denies fever or chills. HEENT: Denies blurred vision, vision changes, or eye pain. Denies hemoptysis CARDIOVASCULAR: Denies chest pain or pressure. RESPIRATORY: No shortness of breath. GASTROINTESTINAL: See HPI for pertinent findings HEMATOLOGIC: Denies bleeding disorders. GENITOURINARY: Denies any blood in urine or increased urinary frequency. SKIN: Denies pruitis. Denies rash. PHYSICAL EXAM: VITAL SIGNS: Reviewed GENERAL: Well-developed in no acute distress. HEENT: No sclera icterus. Extraocular movements grossly intact. Moist buccal mucosa. Head is atraumatic, normocephalic. No nasal drainage. ABDOMEN: Soft. Nondistended. Patient has mild discomfort with palpation the right upper quadrant epigastric area. Patient just received IV pain medication. NEUROLOGIC: Alert and oriented. Cranial nerves II through XII grossly intact. LABORATORY DATA: WBC is 9.3 Hgb 12.8 platelets 339 Sodium 138 potassium 4.0 creatinine 0.52 Total bilirubin 3.5 AST 88 down to 69 ALT 103 194 alk phos 157 up at 163 Troponin negative amylase 1370 lipase greater than 20,000 down to 5993 IMAGING: Abdominal ultrasound cholelithiasis. Hepatocellular disease, likely related to hepatic steatosis ASSESSMENT: 1. Gallstone pancreatitis 2. Possible choledocholithiasis with elevated LFTs and total bilirubin PLAN: -Await further recommendations per GI service -Keep patient nothing by mouth -Continue IV fluids -Continue pain medication as needed -Continue antiemetics with Zofran. Compazine and Protonix added due to continuous nausea and vomiting -Repeat labs in a.m. -Further recommendations forthcoming per surgeon Thank you for this consultation Physician Tool Machinist note has been reviewed by physician. Signing provider agrees with the documented findings, assessment, and plan of care. I have personally seen and examined the patient, reviewed the MECHANICAL EXPERT /PAs history, exam and MDM and agree with the assessment and plan as written. Based on total visit time, I have performed more than 50% of the visit. As above: Patient feels better this afternoon. Await formal GI evaluation. Repeat labs tomorrow. Will remain on surgical standby for cholecystectomy once the likelihood of residual choledocholithiasis is low. Past Medical History Past Medical History: Asthma, GERD/Reflux Additional Past Medical History / Comment(s): Hx Gestational Diabetes. History of Any Multi-Drug Resistant Organisms: None Reported Past Surgical History: Breast Surgery, Section, Orthopedic Surgery, Tonsillectomy Additional Past Surgical History / Comment(s): CYST REMOVED RT WRIST, LT HEEL SPUR REMOVED, BREAST REDUCTION, CTR-RT HAND, D&C. Past Anesthesia/Blood Transfusion Reactions: Motion Sickness, Postoperative Nausea & Vomiting (PONV) Past Psychological History: Depression Smoking Status: Never smoker Past Alcohol Use History: Rare Past Drug Use History: None Reported - Past Family History Mother Family Medical History: No Reported History Medications and Allergies Home Medications Medication Instructions Recorded Confirmed Type Albuterol Sulfate [Proair Hfa] 2 puff INHALATION RT-QID PRN 11/04/22 11/04/22 History Budesonide/Formoterol Fumarate 1 puff INHALATION RT-BID PRN 11/04/22 11/04/22 History [Symbicort 80-4.5 Mcg Inhaler] Ibuprofen [Motrin Ib] 400 mg PO Q8H PRN 11/04/22 11/04/22 History Allergies Allergy/AdvReac Type Severity Reaction Status Date / Time codeine Allergy Rash/Hives Verified 11/04/22 17:43 Penicillins Allergy Rash/Hives Verified 11/04/22 17:43 Surgical - Exam Vital Signs Temp Pulse Resp BP Pulse Ox 98.4 F 84 16 139/88 98 11/04/22 15:48 11/04/22 15:48 11/04/22 15:48 11/04/22 15:48 11/04/22 15:48 Results - Labs 11/05/22 08:26 11/05/22 08:26 Abnormal Lab Results - Last 24 Hours (Table) 11/04/22 11/04/22 Range/Units 16:46 16:46 Carbon Dioxide 32 H (22-30) mmol/L Total Bilirubin 3.6 H (0.2-1.3) mg/dL AST 88 H (14-36) U/L ALT 103 H (4-34) U/L Alkaline Phosphatase 157 H (38-126) U/L Amylase 1370 H* (30-110) U/L Lipase >50619 H (23-300) U/L Urine Appearance Cloudy H (Clear) Urine Protein Trace H (Negative) Urine Bilirubin 1+ H (Negative) Ur Squamous Epith Cells 13 H (0-4) /hpf Urine Mucus Rare H (None) /hpf Diabetes panel 11/04/22 Range/Units 16:46 Sodium 138 (137-145) mmol/L Potassium 3.7 (3.5-5.1) mmol/L Chloride 102 (98-107) mmol/L Carbon Dioxide 32 H (22-30) mmol/L BUN 13 (7-17) mg/dL Creatinine 0.71 (0.52-1.04) mg/dL Glucose 90 (74-99) mg/dL Calcium 8.7 (8.4-10.2) mg/dL AST 88 H (14-36) U/L ALT 103 H (4-34) U/L Alkaline Phosphatase 157 H (38-126) U/L Total Protein 7.1 (6.3-8.2) g/dL Albumin 4.1 (3.5-5.0) g/dL Calcium panel 11/04/22 Range/Units 16:46 Calcium 8.7 (8.4-10.2) mg/dL Albumin 4.1 (3.5-5.0) g/dL Pituitary panel 11/04/22 Range/Units 16:46 Sodium 138 (137-145) mmol/L Potassium 3.7 (3.5-5.1) mmol/L Chloride 102 (98-107) mmol/L Carbon Dioxide 32 H (22-30) mmol/L BUN 13 (7-17) mg/dL Creatinine 0.71 (0.52-1.04) mg/dL Glucose 90 (74-99) mg/dL Calcium 8.7 (8.4-10.2) mg/dL Adrenal panel 11/04/22 Range/Units 16:46 Sodium 138 (137-145) mmol/L Potassium 3.7 (3.5-5.1) mmol/L Chloride 102 (98-107) mmol/L Carbon Dioxide 32 H (22-30) mmol/L BUN 13 (7-17) mg/dL Creatinine 0.71 (0.52-1.04) mg/dL Glucose 90 (74-99) mg/dL Calcium 8.7 (8.4-10.2) mg/dL Total Bilirubin 3.6 H (0.2-1.3) mg/dL AST 88 H (14-36) U/L ALT 103 H (4-34) U/L Alkaline Phosphatase 157 H (38-126) U/L Total Protein 7.1 (6.3-8.2) g/dL Albumin 4.1 (3.5-5.0) g/dL
--- NOTE | 2022-11-05 13:53 | P.CONS ---
History of Present Illness - Reason for Consult Consult date: 11/05/22 - History of Present Illness Patient is a 36-year-old female with past medical history significant for asthma and reflux, presenting to the ER yesterday afternoon for evaluation of abdominal pain and vomiting, patient mentioned the day before he did have a cheeseburger for lunch afterwards the patient did have abdominal pain and discomfort and did have an episode of vomiting she felt slightly better after the episode of vomiting and was doing okay until this morning and she did have egg sandwich afterwards the patient started having the pain again patient pain has been mostly in the epigastric area describing it to be sharp and was almost unable to the time she presented to the hospital and did have a few episodes of vomiting the patient abdominal pain subsequently improved the pain medication and denies significant radiation of the pain. Patient denies having any fever or any chills at home and a few have been recorded during this hospital stay, patient did have a normal white count kidney function has been normal, patient did have elevated liver enzymes with a bilirubin of 3.6, AST is 88 AST 13, patient did have amylase of 1370, lipase was more than 20,000 however is down to 5993 this morning patient did have a ultrasound of the abdomen visualized portion of the pancreas was normal there was evidence of cholelithiasis but no features suggestive cholecystitis, patient did have blood culture drawn infectious disease was consulted and the patient is to be high risk of bacteremia and infection and need for antibiotic therapy Past Medical History Past Medical History: Asthma, GERD/Reflux Additional Past Medical History / Comment(s): Hx Gestational Diabetes. History of Any Multi-Drug Resistant Organisms: None Reported Past Surgical History: Breast Surgery, Section, Orthopedic Surgery, Tonsillectomy Additional Past Surgical History / Comment(s): CYST REMOVED RT WRIST, LT HEEL SPUR REMOVED, BREAST REDUCTION, CTR-RT HAND, D&C. Past Anesthesia/Blood Transfusion Reactions: Motion Sickness, Postoperative Nausea & Vomiting (PONV) Past Psychological History: Depression Smoking Status: Never smoker Past Alcohol Use History: Rare Past Drug Use History: None Reported - Past Family History Mother Family Medical History: No Reported History Medications and Allergies Home Medications Medication Instructions Recorded Confirmed Type Albuterol Sulfate [Proair Hfa] 2 puff INHALATION RT-QID PRN 11/04/22 11/04/22 History Budesonide/Formoterol Fumarate 1 puff INHALATION RT-BID PRN 11/04/22 11/04/22 History [Symbicort 80-4.5 Mcg Inhaler] Ibuprofen [Motrin Ib] 400 mg PO Q8H PRN 11/04/22 11/04/22 History Allergies Allergy/AdvReac Type Severity Reaction Status Date / Time codeine Allergy Rash/Hives Verified 11/04/22 17:43 Penicillins Allergy Rash/Hives Verified 11/04/22 17:43 Physical Exam Vitals: Vital Signs Temp Pulse Pulse Resp BP BP BP 11/05/22 07:00 97.7 F 80 16 124/88 11/05/22 02:21 97.4 F L 59 L 18 134/87 11/05/22 01:32 69 18 11/04/22 23:05 69 18 11/04/22 22:00 97.4 F L 69 18 136/85 11/04/22 20:55 83 16 11/04/22 19:13 83 16 128/83 11/04/22 18:25 97.0 F L 72 14 132/68 11/04/22 15:48 98.4 F 84 16 139/88 Pulse Ox 11/05/22 07:00 100 11/05/22 02:21 100 11/05/22 01:32 11/04/22 23:05 11/04/22 22:00 100 11/04/22 20:55 99 11/04/22 19:13 99 11/04/22 18:25 96 11/04/22 15:48 98 Intake and Output 11/04/22 11/05/22 11/05/22 22:59 06:59 14:59 Other: Voiding Method Toilet # Voids 1 2 Weight 99.79 kg Results CBC & Chem 7: 11/05/22 08:26 11/05/22 08:26 Labs: Abnormal Lab Results - Last 24 Hours (Table) 11/04/22 11/04/22 11/05/22 Range/Units 16:46 16:46 08:26 Carbon Dioxide 32 H (22-30) mmol/L Total Bilirubin 3.6 H 3.5 H (0.2-1.3) mg/dL AST 88 H 69 H (14-36) U/L ALT 103 H 94 H (4-34) U/L Alkaline Phosphatase 157 H 163 H (38-126) U/L Amylase 1370 H* (30-110) U/L Lipase >89821 H 5993 H (23-300) U/L Urine Appearance Cloudy H (Clear) Urine Protein Trace H (Negative) Urine Bilirubin 1+ H (Negative) Ur Squamous Epith Cells 13 H (0-4) /hpf Urine Mucus Rare H (None) /hpf Assessment and Plan Plan: 1patient is in the hospital abdominal pain in this patient did have evidence of significantly elevated amylase lipase and liver enzymes concern for possible pancreatitis questionably gallstone related however there was no features suggestive cholecystitis on ultrasound the patient not running any fever and did have a normal white count 2blood culture has been obtained which are negative so far and those will be followed 3-we will follow the patient does off antibiotic therapy at this point 4check inflammatory markers We will follow on clinical condition and cultures to further adjust medication if needed Thank you for this consultation will follow this patient with you Time with Patient: Greater than 30
[2022-11-06 05:19] LABS: Basophils % (A) 1 %; Eosinophils # (A) 0.1 k/uL (0-0.7); Eosinophils % (A) 2 %; HCT 38.2 % (34.0-46.0); HGB 12.4 gm/dL (11.4-16.0); Lymphocytes % (A) 21 %; MCH 27.6 pg (25.0-35.0); MCHC 32.5 g/dL (31.0-37.0); MCV 84.8 fL (80.0-100.0); Mean Platelet Volume 7.1; Monocytes # (A) 0.2 k/uL (0-1.0); Monocytes % (A) 4 %; Neutrophils # (A) 3.5 k/uL (1.3-7.7); Neutrophils % (A) 72 %; Platelet Count 281 k/uL (150-450); RDW 14.1 % (11.5-15.5); WBC 4.9 k/uL (3.8-10.6)
[2022-11-06 05:40] LABS: ALT 66 U/L (4-34); AST 38 U/L (14-36); African American GFR (CKD) >90 (>60 ml/min/1.73 sqM); Albumin 3.5 g/dL (3.5-5.0); Albumin/Globulin Ratio 1.3; Alkaline Phosphatase 140 U/L (38-126); Anion Gap 4 mmol/L; Blood Urea Nitrogen 5 mg/dL (7-17); C Reactive Protein 2.7 mg/dL (<1.0); Calcium 8.4 mg/dL (8.4-10.2); Carbon Dioxide 30 mmol/L (22-30); Chloride 104 mmol/L (98-107); Globulin 2.6 g/dL; Glucose 76 mg/dL (74-99); Lipase 412 U/L (23-300); Non-African American GFR(CKD) >90 (>60 ml/min/1.73 sqM); Potassium 3.7 mmol/L (3.5-5.1); Sodium 138 mmol/L (137-145); Total Bilirubin 2.2 mg/dL (0.2-1.3); Total Protein 6.1 g/dL (6.3-8.2)
[2022-11-06] MEDS: LACTATED RINGERS 1,000 ML IV SCH ×3 (05:56→21:19)
[2022-11-06] MEDS: PANTOPRAZOLE 40 MG/10 ML VIAL IVP SCH (09:06)
--- NOTE | 2022-11-06 09:09 | P.PN ---
Subjective Progress Note Date: 11/06/22 Principal diagnosis: Gallstone pancreatitis This is a pleasant female who presented to the emergency department with complaints of epigastric and right upper quadrant pain. Patient states Wednesday after lunch eating a cheeseburger she felt abdominal pain and discomfort, she thought it was just more gas and bloating took some Tums and ibuprofen seem to help slightly. She continued throughout the day to have some discomfort but not severe. Yesterday after eating breakfast cheek and had that severe pain in the epigastric and right upper quadrant region associated with nausea and vomiting. Patient does have a history of cholelithiasis however during her last episode with symptoms she was . She states at home had a low-grade temp of 100.6. She was afebrile on admission and has been since. She states abdominal pain has improved some with pain medications. She still had some nausea and vomiting through the night. She's been nothing by mouth. CBC on admission unremarkable, total bilirubin 3.6 AST 88 ALT 103 alkaline phosphatase 157 amylase 1370 and lipase greater than 20,000. Abdominal ultrasound 1. cholelithiasis. 2. Hepatocellular disease, likely related to hepatic steatosis 11/06/2022: Karen was seen and examined today as a follow-up for epigastric and right upper quadrant pain noted to have gallstone pancreatitis on admission. She continues to improve. She states her pain is very dull, she has not used any pain medication since yesterday evening before bed. No nausea or vomiting. She tolerated clear liquid diet yesterday evening. 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 She is voiding without difficulty. Passing gas. LFTs are trending down, total bilirubin 2.2 AST 38 ALT 66 alkaline phosphatase 140, lipase 412. Objective - Vital Signs Vital signs: Vital Signs Temp 98.4 F 11/06/22 02:40 Pulse 92 11/06/22 02:40 Resp 17 11/06/22 02:40 BP 131/82 11/06/22 02:40 Pulse Ox 96 11/06/22 02:40 FiO2 Intake & Output 11/05/22 11/06/22 11/06/22 18:59 06:59 18:59 Intake Total 360 Balance 360 Intake: Oral 360 Other: Voiding Method Toilet # Voids 1 2 - Exam General appearance: The patient is alert, oriented, appears in no acute distress. HET: Head is normocephalic and atraumatic. Conjunctiva pink. Sclera anicteric. Neck: Supple without lymphadenopathy. Trachea midline. Heart: S1 S2. Regular rate and rhythm. Lungs: Clear to auscultation. Abdomen: Soft,mild epigastric/right upper quadrant tenderness, nondistended with bowel sounds. No guarding or rigidity. Skin: No rashes.No jaundice. Extremities: Normal skin color and turgor. No pedal edema. Neurological: No focal deficits. Alert and oriented x3. - Labs CBC & Chem 7: 11/06/22 04:52 11/06/22 04:52 Labs: Abnormal Lab Results - Last 24 Hours (Table) 11/05/22 11/06/22 Range/Units 08:26 04:52 BUN 5 L (7-17) mg/dL Total Bilirubin 3.5 H 2.2 H (0.2-1.3) mg/dL AST 69 H 38 H (14-36) U/L ALT 94 H 66 H (4-34) U/L Alkaline Phosphatase 163 H 140 H (38-126) U/L C-Reactive Protein 2.7 H (<1.0) mg/dL Total Protein 6.1 L (6.3-8.2) g/dL Lipase 5993 H 412 H (23-300) U/L Assessment and Plan (1) Gallstone pancreatitis Narrative/Plan: 28-year-old female with a known history of cholelithiasis who presented to the emergency department with severe epigastric and right upper quadrant pain associated with nausea and vomiting. Ultrasound shows cholelithiasis, hepatic steatosis. Abdominal pain improved with pain medication, nausea and vomiting improved. Patient was noted to have significantly elevated LFTs as well as amylase and lipase consistent with a gallstone pancreatitis. She's been afebrile, no evidence of leukocytosis. Repeat labs today total bilirubin 3.5 AST 69 ALT 94 alkaline phosphatase 163 and lipase 5993. on his LFTs are trending down as well as lipase. Patient's pain improved significantly. likely patient passed the gallstone.We'll defer recommendations to general surgery at this time. Keep nothing by mouth for possible ERCP if the request. Current Visit: Yes Status: Acute Code(s): K85.10 - BILIARY ACUTE PANCREATITIS WITHOUT NECROSIS OR INFECTION SNOMED Code(s): 33542272 (2) Abdominal pain Current Visit: Yes Status: Acute Code(s): R10.9 - UNSPECIFIED ABDOMINAL PAIN SNOMED Code(s): 21488084 Plan: 1. Continue symptomatic supportive care 2. Continue pain management 3. Protonix 40 mg daily 4. Keep nothing by mouth 5. Repeat daily labs 6. Patient's clinical course discussed with general surgery, they agreed there is no indication at this time to undergo ERCP 7. Continue with recommendations on how timing for cholecystectomy per general surgery Thank you for this consultation. Dr. Ban Santana I agree with the dictator's note, documented as a scribe by Nicolette Angelo.
[2022-11-06] MEDS: KETOROLAC 15 MG/ML 1 ML VIAL IVP PRN ×2 (09:17→17:38)
[2022-11-06] MEDS: ONDANSETRON 4 MG/2 ML VIAL IVP PRN (09:17)
--- NOTE | 2022-11-06 11:17 | P.PN ---
Subjective Progress Note Date: 11/06/22 CHIEF COMPLAINT: Gallstone pancreatitis HISTORY OF PRESENT ILLNESS: Patient is feeling much better today. She's had no further nausea or vomiting. Her abdominal pain has improved greatly. She still has some mild discomfort in the right upper quadrant. She tolerated the clear liquids yesterday. Her liver enzymes and lipase level are improving. She is afebrile. WBC 4.9 Hgb 12.4 platelets 281 sodium 138 potassium 3.7 creatinine 0.63 total bili is down from 3.5-2.2 AST 69-38 ALT 9466 alk phos 163-140 lipase 5993 down to 412. Patient seen by GI service. No plans for ERCP. PHYSICAL EXAM: VITAL SIGNS: Reviewed. GENERAL: Well-developed in no acute distress. HEENT: No sclera icterus. Extraocular movements grossly intact. Moist buccal mucosa. Head is atraumatic, normocephalic. ABDOMEN: Soft. Nondistended. minimal tenderness right upper quadrant NEUROLOGIC: Alert and oriented. Cranial nerves II through XII grossly intact. ASSESSMENT: 1. Gallstone pancreatitis 2. Possible choledocholithiasis PLAN: -Advance diet to full liquids -Repeat labs in a.m. -Continue IV fluids -Continue supportive care -Further recommendations forthcoming per surgeon regarding cholecystectomy Physician Oracle Bpm Developer note has been reviewed by physician. Signing provider agrees with the documented findings, assessment, and plan of care. I have personally seen and examined the patient, reviewed the AWS SOFTWARE DEVELOPMENT ENGINEER /PAs history, exam and MDM and agree with the assessment and plan as written. Based on total visit time, I have performed more than 50% of the visit. As above: Patient doing well today. Says her pain is mostly gone. Urine is now clear in color. Labs are improved. Patient is anxious to have surgery done so she can get home to her 2year-old son. Options reviewed. Will schedule for laparoscopic, possible open cholecystectomy tomorrow. Decision to proceed with surgery will be based on the morning lab values which will be drawn stat at 6 AM. Risks of bleeding, infection, bile leak, bile duct injury, retained common bile duct stone, trocar injury, conversion to an open procedure, hernia, anesthesia related complications were reviewed. The patient understands and wishes to proceed. Objective - Vital Signs Vital signs: Vital Signs Temp 98.3 F 11/06/22 08:00 Pulse 80 11/06/22 08:00 Resp 16 11/06/22 08:00 BP 128/91 11/06/22 08:00 Pulse Ox 100 11/06/22 08:00 FiO2 Intake & Output 11/05/22 11/06/22 11/06/22 18:59 06:59 18:59 Intake Total 360 Balance 360 Intake: Oral 360 Other: Voiding Method Toilet # Voids 1 2 - Labs CBC & Chem 7: 11/06/22 04:52 11/06/22 04:52 Labs: Abnormal Lab Results - Last 24 Hours (Table) 11/06/22 Range/Units 04:52 BUN 5 L (7-17) mg/dL Total Bilirubin 2.2 H (0.2-1.3) mg/dL AST 38 H (14-36) U/L ALT 66 H (4-34) U/L Alkaline Phosphatase 140 H (38-126) U/L C-Reactive Protein 2.7 H (<1.0) mg/dL Total Protein 6.1 L (6.3-8.2) g/dL Lipase 412 H (23-300) U/L
--- NOTE | 2022-11-06 13:11 | P.PN ---
Subjective Progress Note Date: 11/06/22 Principal diagnosis: Diagnosis Acute pancreatitis Cholecystitis with pancreatitis Cholelithiasis History of asthma stable. Patient seen and examined today Date of service 11/06/[address] Ty. Patient seen [id number] examined and her at bedside She stated that still have the right upper quadrant abdominal pain and her nausea and vomiting has been improved significantly. Was expecting surgical and we did not give her any DVT prophylaxis We ordering ambulation as tolerated every shift discussed with her because of the DVT and she is able to move around. No decision of surgical intervention so far and the repeating laboratories. Patient seen by infectious disease no need for antibiotic at this time Patient seen by Dr. Santana and Dr. Shook saw her yesterday and he will be seeing her today. Patient on symptomatic treatment and she has been improving. Vital sign temperature 98.3 F oral, pulse 80 bpm regular, respiratory rate 16/m nonlabored, blood pressure 128/91, and oxygen saturation 100%. On admission dated urine analysis for hCG was negative for . And at the time of diagnosis they diagnosed her with gallstone pancreatitis. Currently her laboratory on admission WBC 99 0.34.9 today Hemoglobin [phone] today. Platelet count 3 263 392 81 today. Her chemistry indicating sodium 138 potassium 3.7, chloride 104 carbon dioxide 30, BUN of 5 creatinine 0.63 with EGFR more than 90 and her anion gap is 4. Total bilirubin 3.63.52.2 AST 8860 938 today ALT [id number]. Today alk phos 1 571 631 40. Her lipase on admission more than [id number] 9 3412 today CRP 2.7. On On exam conscious alert oriented 3 pupils equal conjunctiva was pink sclera nonicteric Oropharynx was negative Neck was supple no JVD no thyromegaly no lymphadenopathy. The chest was clear no wheezes no rhonchi's stable Heart PMI in the fifth intercostal space normal S1 is 2 and no gallop and no palpitation Abdomen positive bowel sounds, positive tenderness in the right upper quadrant. No suprapubic tenderness. Extremities no edema and positive pulses Neurologically stable Psychiatrically stable. Assessment gallbladder stone pancreatitis Acute pancreatitis Cholelithiasis. Asthma stable with normal activation. Plan: #1 patient not on heparin subcu with the expectation of surgery #2 patient ambulatory as tolerated no restriction. #3 the laboratory in a.m. Objective - Vital Signs Vital signs: Vital Signs Temp 98.3 F 11/06/22 08:00 Pulse 80 11/06/22 08:00 Resp 16 11/06/22 08:00 BP 128/91 11/06/22 08:00 Pulse Ox 100 11/06/22 08:00 FiO2 Intake & Output 11/05/22 11/06/22 11/06/22 18:59 06:59 18:59 Intake Total 360 Balance 360 Intake: Oral 360 Other: Voiding Method Toilet # Voids 1 2 - Labs CBC & Chem 7: 11/06/22 04:52 11/06/22 04:52 Labs: Abnormal Lab Results - Last 24 Hours (Table) 11/06/22 Range/Units 04:52 BUN 5 L (7-17) mg/dL Total Bilirubin 2.2 H (0.2-1.3) mg/dL AST 38 H (14-36) U/L ALT 66 H (4-34) U/L Alkaline Phosphatase 140 H (38-126) U/L C-Reactive Protein 2.7 H (<1.0) mg/dL Total Protein 6.1 L (6.3-8.2) g/dL Lipase 412 H (23-300) U/L
--- NOTE | 2022-11-06 15:06 | P.PN ---
Subjective Progress Note Date: 11/06/22 Principal diagnosis: Gallstone pancreatitis Patient is a 36-year-old female with past medical history significant for asthma and reflux, presented to hospital abdominal pain and epigastric area nausea and vomiting patient has been diagnosed with gallstone pancreatitis concerning for choledocholithiasis and gallstone. On today's evaluation that is 11/06/2022, the patient denies having any fever or any chills the patient abdominal pain has significantly decreased in intensity n o further nausea vomiting has been tolerating her diet no diarrhea no chest pain shortness of breath or cough Objective - Vital Signs Vital signs: Vital Signs Temp 98.3 F 11/06/22 08:00 Pulse 80 11/06/22 08:00 Resp 16 11/06/22 08:00 BP 128/91 11/06/22 08:00 Pulse Ox 100 11/06/22 08:00 FiO2 Intake & Output 11/05/22 11/06/22 11/06/22 18:59 06:59 18:59 Intake Total 360 Balance 360 Intake: Oral 360 Other: Voiding Method Toilet # Voids 1 2 - Exam GENERAL DESCRIPTION: Middle-age female lying in bed in no distress RESPIRATORY SYSTEM: Unlabored breathing , decreased breath sounds at bases HEART: S1 S2 regular rate and rhythm , ABDOMEN: Soft , no tenderness EXTREMITIES: No edema feet - Labs CBC & Chem 7: 11/06/22 04:52 11/06/22 04:52 Labs: Abnormal Lab Results - Last 24 Hours (Table) 11/06/22 Range/Units 04:52 BUN 5 L (7-17) mg/dL Total Bilirubin 2.2 H (0.2-1.3) mg/dL AST 38 H (14-36) U/L ALT 66 H (4-34) U/L Alkaline Phosphatase 140 H (38-126) U/L C-Reactive Protein 2.7 H (<1.0) mg/dL Total Protein 6.1 L (6.3-8.2) g/dL Lipase 412 H (23-300) U/L Assessment and Plan (1) Gallstone pancreatitis Current Visit: Yes Status: Acute Code(s): K85.10 - BILIARY ACUTE PANCREATITIS WITHOUT NECROSIS OR INFECTION SNOMED Code(s): 43608031 Plan: 1patient is in the hospital abdominal pain in this patient did have evidence of significantly elevated amylase lipase and liver enzymes concern for possible pancreatitis questionably gallstone related however there was no features suggestive cholecystitis on ultrasound the patient not running any fever and did have a normal white count 2blood culture has been obtained which are negative 3- the patient remains to be afebrile and did have improvement in her symptoms white count is normal. Clinically not behaving as cholangitis or sepsis patient will be monitored closely off antibiotic therapy at this point Time with Patient: Less than 30
[2022-11-07] MEDS: LACTATED RINGERS 1,000 ML IV SCH ×3 (02:20→17:35)
[2022-11-07 06:06] LABS: ALT 50 U/L (4-34); AST 28 U/L (14-36); African American GFR (CKD) >90 (>60 ml/min/1.73 sqM); Albumin 3.6 g/dL (3.5-5.0); Albumin/Globulin Ratio 1.3; Alkaline Phosphatase 129 U/L (38-126); Anion Gap 4 mmol/L; Blood Urea Nitrogen 3 mg/dL (7-17); Carbon Dioxide 29 mmol/L (22-30); Chloride 106 mmol/L (98-107); Globulin 2.8 g/dL; Glucose 82 mg/dL (74-99); Lipase 120 U/L (23-300); Non-African American GFR(CKD) >90 (>60 ml/min/1.73 sqM); Potassium 4.1 mmol/L (3.5-5.1); Sodium 139 mmol/L (137-145); Total Bilirubin 1.4 mg/dL (0.2-1.3); Total Protein 6.4 g/dL (6.3-8.2)
[2022-11-07] MEDS ORDERED: ONDANSETRON 4 MG/2 ML VIAL IVP ONE (08:13)
[2022-11-07] MEDS ORDERED: DEXAMETHASONE SOD PHOSPHATE 4 MG/ML 1 ML VIAL IV ONE (08:14)
[2022-11-07] MEDS ORDERED: SCOPOLAMINE 1 MG/72 HR PATCH TRANSDERM ONE (08:14)
[2022-11-07] MEDS ORDERED: PROPOFOL 10 MG/ML 20 ML VIAL IV ONE (08:33)
[2022-11-07] MEDS ORDERED: ROCURONIUM 10 MG/ML (5 ML VIAL) IV ONE (08:33)
[2022-11-07] MEDS ORDERED: ceFAZolin 1,000 MG VIAL ONE (08:33)
[2022-11-07] MEDS ORDERED: LIDOCAINE 4% LTA KIT (4 ML) TOPICAL ONE (08:33)
[2022-11-07] MEDS ORDERED: LIDOCAINE 2% INJ 20 MG/ML (2 ML VIAL) ONE (08:33)
[2022-11-07] MEDS ORDERED: SUCCINYLCHOLINE CHLORIDE 200 MG/10 ML VIAL IV ONE (08:33)
[2022-11-07] MEDS ORDERED: MIDAZOLAM 2 MG/2 ML VIAL ONE (08:33)
[2022-11-07] MEDS ORDERED: KETOROLAC 15 MG/ML 1 ML VIAL ONE (08:33)
[2022-11-07] MEDS ORDERED: GLYCOPYRROLATE 0.2 MG/ML 2 ML VIAL ONE (08:33)
[2022-11-07] MEDS ORDERED: fentaNYL (PF) 50 MCG/ML 2 ML AMP ONE (08:33)
[2022-11-07] MEDS ORDERED: SODIUM CHLORIDE 0.9% 100 ML BAG ONE (08:33)
[2022-11-07] MEDS ORDERED: NEOSTIGMINE 1 MG/ML 10 ML VIAL ONE (08:33)
[2022-11-07] MEDS ORDERED: LACTATED RINGERS 1,000 ML IV ONE (08:38)
[2022-11-07] MEDS ORDERED: BUPIVACAIN-EPI 0.25%-1:200,000 30 ML VIAL SQ ONE ×2 (08:44→08:57)
[2022-11-07 08:47] LABS: HCT 39.1 % (37.2-46.3); HGB 12.4 g/dL (12.0-15.0); MCH 27.5 pg (27.0-32.0); MCHC 31.7 g/dL (32.0-37.0); MCV 86.7 fL (80.0-97.0); Mean Platelet Volume 9.7 fL (9.5-12.2); NRBC Per 100 WBC 0 /100 WBCS (0.0-0.0); Platelet Count 315 X 10*3/uL (140-440); RBC 4.51 X 10*6/uL (4.10-5.20); RDW 14.1 % (11.5-14.5); WBC 5.65 X 10*3/uL (4.50-10.00)
[2022-11-07] MEDS ORDERED: ACETAMINOPHEN TAB 325 MG TAB PO PRN (09:39)
--- NOTE | 2022-11-07 09:41 | P.OP ---
Date of Procedure: 11/07/22 Procedure(s) Performed: PREOPERATIVE DIAGNOSIS: Acute cholecystitis with gallstone pancreatitis POSTOPERATIVE DIAGNOSIS: Same PROCEDURE: Laparoscopic cholecystectomy SURGEON: Rufus EBL: Minimal see anesthesia record ANESTHESIA: Gen. COMPLICATIONS: None OPERATIVE PROCEDURE: The patient was brought and placed on the operating room table in the supine position. The patient was placed under general anesthesia at that time. The abdomen was prepped and draped in the usual sterile fashion. A small vertical infraumbilical incision was made. The fascia was grasped with the Nneka forceps. The fascia was retracted anteriorly. The Veress needle was advanced into the peritoneal cavity. The saline drop test was normal. Insufflation took place up to 15 mmHg. A 5 mm optical trocar was advanced and the peritoneal cavity. 2 additional 5 mm trochars were placed in the right upper quadrant under direct visualization. A 12 mm trocar was advanced into the epigastric incision site. There were adhesions between the tuan-colonic fat in the liver margins were divided using LigaSure. The gallbladder itself was inflamed with a thickened wall. The gallbladder was retracted superiorly and laterally. The peritoneum overlying the infundibulum was bluntly dissected. The patient's cystic duct was visualized. The junction between the cystic duct common and hepatic duct was identified. The critical view of safety was achieved after blunt dissection. The cystic duct was prominent in size and I used a 2-0 Ethibond to ligate the cystic duct on the patient's side as well as a 12 mm clipper on the patient's side. The cystic artery was identified and clipped as well. A small vessel was seen along the gallbladder fossa and clipped as well. The gallbladder was then removed from the liver bed using electrocautery and the LigaSure device. The gallbladder was then removed from the epigastric trocar site with an Endo Catch bag. The gallbladder fossa was irrigated with saline. There was no evidence of any bleeding or biliary drainage seen. The fascia at the 12 millimeter site was closed using a Wm- Hany 0 Vicryl stitch. The trochars were then removed. The skin at all 4 sites was closed using a 4-0 Monocryl stitch. Skin glue was utilized on the incision sites. At the end of this procedure the sponge and needle counts were correct. DISPOSITION: Stable to the recovery room
[2022-11-07] MEDS ORDERED: HYDROmorphone 0.5 MG/0.5 ML SYRINGE IVP ONE ×2 (10:05→10:19)
[2022-11-07] MEDS: PANTOPRAZOLE 40 MG/10 ML VIAL IVP SCH (12:37)
[2022-11-07] MEDS: HYDROmorphone 1 MG/ML 1 ML SYRINGE IVP PRN ×2 (12:44→21:12)
[2022-11-07] MEDS: HYDROcodone/APAP 5-325MG 1 EACH TAB PO PRN (16:28)
[2022-11-07] MEDS: metroNIDAZOLE 500 MG TAB PO SCH ×2 (16:29→21:12)
--- NOTE | 2022-11-07 16:57 | P.PN ---
Subjective Progress Note Date: 11/07/22 (Status post cholecystectomy in a.m. by Dr. Hooper) Progress note Date of service 11/07/[address] Ty. Patient seen and evaluated [id number] post operative Patient underwent today a laparoscopic cholecystectomy by Dr. Hooper on 11/07/22 in a.m. Patient seen postoperative and she has been doing fairly well no nausea no vomiting still with the pain which contributed to her laparoscopic cholec ystectomy and she is medicated for that otherwise she is feeling much better, her at bedside. Her vital sign today indicating temperature 90.8 F oral, pulse rate 86 per minute regular, respiratory rate 15/m nonlabored. Blood pressure 131/81 with a mean 97 Oxygen saturation 97% on room air. On exam: Conscious alert oriented 3 and at bedside only complaint was pain which is expected postoperative. Head was normocephalic atraumatic and oropharynx natural disease no new changes Neck was supple no JVD no thyromegaly no lymphadenopathy trachea midline. Chest is clear to auscultation and percussion Heart regular sinus rhythm Abdomen status post laparoscopic cholecystectomy today in the morning by Dr. Hooper with much of relief. Extremities no edema and positive pulses. And she is ambulatory. Psychiatry stable Neurologically stable Assessment: Patient has significant improvement in her laboratories this morning her white count 5.65 and a hemoglobin 12.4, chemistry profile sodium 139 potassium 4.1 chloride 106 carbon dioxide 29 Total bilirubin down to 1.4 with a normal 1.3, AST 28, ALT 50, alk phos 129 with the significant improvement patient taken to the operative room and underwent laparoscopic cholecystectomy. Lactic acid on admission was normal. Status post laparoscopic cholecystectomy, underlying gallbladder pancreatitis associated probably with gallbladder stone cholecystitis consideration we don't have yet to the pathology report. Significant improvement Plan: Patient gradually advance her diet by Dr. Hooper and internal laboratory tomorrow stable probably will be going home tomorrow or day after depend on the decision of Dr. Hooper. Patient also started on Flagyl 500 mg by mouth 3 times a day per Dr. Busby with the probable inflammation of the gallbladder. Objective - Vital Signs Vital signs: Vital Signs Temp 98 F 11/07/22 15:31 Pulse 86 11/07/22 15:31 Resp 15 11/07/22 15:31 BP 131/81 11/07/22 15:31 Pulse Ox 97 11/07/22 15:31 FiO2 Intake & Output 11/06/22 11/07/22 11/07/22 18:59 06:59 18:59 Intake Total 125 0 850 Output Total 5 Balance 125 0 845 Intake: IV 850 Oral 125 0 Output: Estimated Blood Loss 5 Other: Voiding Method Toilet # Voids 4 2 1 - Labs CBC & Chem 7: 11/07/22 05:29 11/07/22 05:29 Labs: Abnormal Lab Results - Last 24 Hours (Table) 11/07/22 11/07/22 Range/Units 05:29 05:29 MCHC 31.7 L (32.0-37.0) g/dL BUN 3 L (7-17) mg/dL Total Bilirubin 1.4 H (0.2-1.3) mg/dL ALT 50 H (4-34) U/L Alkaline Phosphatase 129 H (38-126) U/L
--- NOTE | 2022-11-07 19:59 | P.PN ---
Subjective Progress Note Date: 11/07/22 Principal diagnosis: Gallstone pancreatitis Patient is a 36-year-old female with past medical history significant for asthma and reflux, presented to hospital abdominal pain and epigastric area nausea and vomiting patient has been diagnosed with gallstone pancreatitis concerning for choledocholithiasis and gallstone. Patient was taken to the OR and status post laparoscopic cholecystectomy with overall finding of acute cholecystitis On today's evaluation that is 11/07/2022, the patient remains to be afebrile, the patient abdominal pain controlled with pain medication, the patient denies nausea vomiting and no diarrhea no chest pain shortness of breath or cough Objective - Vital Signs Vital signs: Vital Signs Temp 96.8 F L 11/07/22 09:48 Pulse 70 11/07/22 10:04 Resp 16 11/07/22 10:04 BP 141/64 11/07/22 10:04 Pulse Ox 98 11/07/22 10:04 FiO2 Intake & Output 11/06/22 11/07/22 11/07/22 18:59 06:59 18:59 Intake Total 125 0 800 Output Total 5 Balance 125 0 795 Intake: IV 800 Oral 125 0 Output: Estimated Blood Loss 5 Other: Voiding Method Toilet # Voids 4 2 - Exam GENERAL DESCRIPTION: Middle-age female lying in bed in no distress RESPIRATORY SYSTEM: Unlabored breathing , decreased breath sounds at bases HEART: S1 S2 regular rate and rhythm , ABDOMEN: Soft , no tenderness EXTREMITIES: No edema feet - Labs CBC & Chem 7: 11/07/22 05:29 11/07/22 05:29 Labs: Abnormal Lab Results - Last 24 Hours (Table) 11/07/22 11/07/22 Range/Units 05:29 05:29 MCHC 31.7 L (32.0-37.0) g/dL BUN 3 L (7-17) mg/dL Total Bilirubin 1.4 H (0.2-1.3) mg/dL ALT 50 H (4-34) U/L Alkaline Phosphatase 129 H (38-126) U/L Assessment and Plan (1) Gallstone pancreatitis Current Visit: Yes Status: Acute Code(s): K85.10 - BILIARY ACUTE PANCREATITIS WITHOUT NECROSIS OR INFECTION SNOMED Code(s): 41866656 Plan: 1patient is in the hospital abdominal pain in this patient did have evidence of significantly elevated amylase lipase and liver enzymes concern for possible pancreatitis questionably gallstone related however there was no features suggestive cholecystitis on ultrasound the patient not running any fever and did have a normal white count 2blood culture has been obtained which are negative 3- the patient status post laparoscopic bursectomy with overall findings of acute cholecystitis, we will add Rocephin and Flagyl as the patient is ALLERGIC to penicillin and to be monitored closely Time with Patient: Less than 30
[2022-11-07] MEDS: DOCUSATE 100 MG CAP PO SCH (21:11)
[2022-11-07] MEDS: SODIUM CHLORIDE 0.9% 1,000 ML IV SCH (21:14)
[2022-11-08 03:09] VITALS: TEMP 97.5
[2022-11-08] MEDS: HYDROcodone/APAP 5-325MG 1 EACH TAB PO PRN (05:19)
[2022-11-08] MEDS: HYDROmorphone 1 MG/ML 1 ML SYRINGE IVP PRN (05:22)
[2022-11-08 08:53] VITALS: BP 145/84; PULSE 71; RESP 15
[2022-11-08] MEDS: PANTOPRAZOLE 40 MG/10 ML VIAL IVP SCH (09:09)
[2022-11-08] MEDS: DOCUSATE 100 MG CAP PO SCH (09:09)
[2022-11-08] MEDS: metroNIDAZOLE 500 MG TAB PO SCH (09:09)
[2022-11-08 10:06] LABS: ALT 47 U/L (4-34); AST 34 U/L (14-36); African American GFR (CKD) >90 (>60 ml/min/1.73 sqM); Albumin/Globulin Ratio 1.4; Alkaline Phosphatase 116 U/L (38-126); Anion Gap 8 mmol/L; Blood Urea Nitrogen 4 mg/dL (7-17); Calcium 8.8 mg/dL (8.4-10.2); Carbon Dioxide 25 mmol/L (22-30); Chloride 103 mmol/L (98-107); Globulin 2.9 g/dL; Glucose 104 mg/dL (74-99); Non-African American GFR(CKD) >90 (>60 ml/min/1.73 sqM); Potassium 3.7 mmol/L (3.5-5.1); Sodium 136 mmol/L (137-145); Total Bilirubin 0.9 mg/dL (0.2-1.3); Total Protein 6.9 g/dL (6.3-8.2)
--- NOTE | 2022-11-08 11:12 | P.PN ---
Subjective Progress Note Date: 11/08/22 Principal diagnosis: Gallstone pancreatitis Patient doing well today. No pain at this time. Tolerating diet. Labs improved. Objective - Vital Signs Vital signs: Vital Signs Temp 97.5 F L 11/08/22 08:00 Pulse 71 11/08/22 08:00 Resp 15 11/08/22 08:00 BP 145/84 11/08/22 08:00 Pulse Ox 94 L 11/08/22 08:00 FiO2 Intake & Output 11/07/22 11/08/22 11/08/22 18:59 06:59 18:59 Intake Total 1030 418 Output Total 5 Balance 1025 418 Intake: IV 850 Oral 180 418 Output: Estimated Blood Loss 5 Other: Voiding Method Toilet # Voids 1 2 - Exam Abdomen: Soft, nondistended, incisions clean and dry - Labs CBC & Chem 7: 11/07/22 05:29 11/08/22 09:24 Labs: Abnormal Lab Results - Last 24 Hours (Table) 11/08/22 Range/Units 09:24 Sodium 136 L (137-145) mmol/L BUN 4 L (7-17) mg/dL Glucose 104 H (74-99) mg/dL ALT 47 H (4-34) U/L Assessment and Plan Plan: Patient doing well today. May discharge. Follow-up as outpatient.
[2022-11-08] MEDS: SODIUM CHLORIDE 0.9% 1,000 ML IV SCH (12:14)
--- NOTE | 2022-11-08 13:40 | P.DS ---
Providers Date of admission: 11/04/22 19:24 Expected date of discharge: 11/08/22 (Discharge summary) Attending physician: Erasto Chaidez Consults: 11/04/22 18:34 Consult Physician Urgent Consulting Provider: Glenn Hooper Consult Reason/Comments: Cholelithiasis Do you want consulting provider notified?: Already Contacted Consult Physician Urgent Consulting Provider: Onelia Santana Consult Reason/Comments: Gallstone pancreatitis Do you want consulting provider notified?: Yes 11/04/22 18:43 Consult Physician Urgent Consulting Provider: Ann Busby Consult Reason/Comments: consult requested by Dr. Chaidez, potential bacteremi a Do you want consulting provider notified?: Yes Primary care physician: Erasto Chaidez This is a dictation on the discharge summary Date of service 11/08/2022 date of discharge Date of admission through the emergency room 11/04/2022. Final diagnoses: #1 gallstone pancreatitis #2 acute pancreatitis is resolved #3 acute cholecystitis #4 status post laparoscopic cholecystectomy by Dr. Hooper on 11/07/2022Wednesday. #5 acute abdominal pain associated with nausea and vomiting as a presented symptoms in the emergency room. Admission diagnosis: Gallstone pancreatitis. Consultation: #1 Dr. Hooper the surgeon #2 Dr. Esther Rousseau GI #[address] Busby infectious disease. Presentation in the ER: Severe nausea and vomiting laboratory and INR indicating acute pancreatitis with the lipase more than 20,000 elevated liver enzyme and bilirubin. At that time no leukocytosis. Hospital course: Patient subsequently admitted to the hospital with IV fluid MPO and repeated laboratory seen by the surgical team, gastroenterology team and subsequently also seen by the infectious disease as her enzymes improved and nausea and vomiting subsided patient taken to the operative room underwent laparoscopic cholecystectomy by Dr. Shook on 11/07/2022 and patient subsequently improving still have some postoperative discomfort. Able to tolerate food liquid and advanced. The her the surgical team. Patient stable general condition and her laboratory improved significantly and cleared for discharge by the surgical group of Dr. Shook and given prescription for pain by Dr. Hooper for 3 days. Also given prescription from dc for Flagyl for 5 days. Patient will be follow-up with Dr. Shook as well as next week by Dr. Chaidez as outpatient. On discharge: Vital sign on discharge 11/08/22 Temperature 97.5 of oral pulse rate 71/m, respiratory rate 15/m, blood pressure ranging between 124/82 and 145/84 and oxygen saturation ranging between 100% on room air/94 on room air. The head was normocephalic and atraumatic, pupil was equal reactive no infection, normal hearing, oropharynx natural teeth Neck was supple no JVD no thyromegaly no lymphadenopathy trachea midline. Chest is clear to auscultation and percussion no wheezes no rhonchi's she had history of asthma however not 3 activated Heart regular sinus rhythm Abdomen is soft positive bowel sounds she had minimal discomfort postoperative Extremities no edema positive pulses and ambulatory Psychiatry stable Neurologically stable. Laboratory on the date of discharge 11/08/22 Sodium 136, potassium 3.7, chloride 103, carbon dioxide 25, anion gap 8, BUN 4, creatinine 0.61, EGFR for more than 90. Glucose 104, calcium 8.8, total bilirubin 0.9 and ALT 47, alk phos 116, albumin 4 total protein 6.9, globulin 2.9. Normal ratio. Patient stable general condition for discharge home today ambulatory and to be followed as outpatient by Dr. Shook and myself as outpatient next week. Patient Condition at Discharge: Fair Plan - Discharge Summary Discharge Rx Participant: No New Discharge Prescriptions: New HYDROcodone/APAP 5-325MG [[place] 5-325] 1 tab PO Q6HR PRN 3 Days #6 tab PRN Reason: Analgesia metroNIDAZOLE [Flagyl] 500 mg PO TID #15 tab Continue Albuterol Sulfate [Proair Hfa] 2 puff INHALATION RT-QID PRN PRN Reason: Shortness Of Breath Budesonide/Formoterol Fumarate [Symbicort 80-4.5 Mcg Inhaler] 1 puff INHALATION RT-BID PRN PRN Reason: Shortness Of Breath Discontinued Ibuprofen [Motrin Ib] 400 mg PO Q8H PRN PRN Reason: Fever And/ Or Pain Discharge Medication List Albuterol Sulfate [Proair Hfa] 2 puff INHALATION RT-QID PRN 11/04/22 [History] Budesonide/Formoterol Fumarate [Symbicort 80-4.5 Mcg Inhaler] 1 puff INHALATION RT-BID PRN 11/04/22 [History] HYDROcodone/APAP 5-325MG [[place] 5-325] 1 tab PO Q6HR PRN 3 Days #6 tab 11/08/22 [Rx] metroNIDAZOLE [Flagyl] 500 mg PO TID #15 tab 11/08/22 [Rx] Follow up Appointment(s)/Referral(s): Glenn Hooper MD [Medical Doctor] - 1 Week Erasto Chaidez MD [Primary Care Provider] - 1-2 days Patient Instructions/Handouts: *[facility] - Laparoscopic Cholecystectomy Discharge Instructions, *[facility] - Scopalamine Patch Instructions
== END 2022-11-08 13:50 | disposition home or self-care (01) | DRG 418 ==
LOC: EC 15:30 → 6NMEDSUR 19:24
PROVIDERS: ADMIT Internal Medicine; ATTEND Internal Medicine
PROC: 0FT44ZZ Resection of Gallbladder, Percutaneous Endoscopic Approach (ICD-10-PCS; principal; 2022-11-04)
DX: K85.10 Biliary acute pancreatitis without necrosis or infection (principal); K80.12 Calculus of gallbladder with acute and chronic cholecystitis without obstruction; N39.0 Urinary tract infection, site not specified; K80.66 Calculus of gallbladder and bile duct with acute and chronic cholecystitis without obstruction; D50.0 Iron deficiency anemia secondary to blood loss (chronic); J45.20 Mild intermittent asthma, uncomplicated; E86.0 Dehydration; F32.A Depression, unspecified; K76.0 Fatty (change of) liver, not elsewhere classified; Z86.32 Personal history of gestational diabetes; Z79.51 Long term (current) use of inhaled steroids; Z87.09 Personal history of other diseases of the respiratory system; Z88.5 Allergy status to narcotic agent; Z88.0 Allergy status to penicillin
CPT/HCPCS: 36415; 76705; 80053; 81001; 81025; 82150; 83605; 83690; 84484; 85025; 85027; 85610; 85730; 86140; 88304; 93005; 96361; 96374; 96375; 99285

== ENCOUNTER → 2022-12-23 | Outpatient (CLI) | payer SELFPAY ==
--- NOTE | 2022-12-23 12:50 | XR ---
EXAMINATION TYPE: XR knee complete RT DATE OF EXAM: 12/23/2022 COMPARISON: NONE HISTORY: 37 year-old female right knee pain TECHNIQUE: 3 views FINDINGS: There is degenerative spurring in the medial and patellofemoral compartments. There is a mo derate knee joint effusion. Extensor mechanism appears intact. No acute fracture, subluxation, or dis location seen. 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 There is a moderate knee joint effusion whi ch is nonspecific. If concern for internal derangement, MRI can be performed. No acute osseous abnorm ality seen.
[2022-12-23 18:13] LABS: Basophils # (A) 0.05 X 10*3/uL (0.00-0.10); Basophils % (A) 0.8 %; Eosinophils # (A) 0.13 X 10*3/uL (0.04-0.35); HCT 39.4 % (37.2-46.3); HGB 12.4 g/dL (12.0-15.0); Immature Grans, Automated 0.2 %; Lymphocytes # (A) 1.72 X 10*3/uL (0.90-5.00); Lymphocytes % (A) 26.3 %; MCH 26.8 pg (27.0-32.0); MCHC 31.5 g/dL (32.0-37.0); MCV 85.1 fL (80.0-97.0); Mean Platelet Volume 10.1 fL (9.5-12.2); Monocytes # (A) 0.38 X 10*3/uL (0.20-1.00); Monocytes % (A) 5.8 %; NRBC Per 100 WBC 0 /100 WBCS (0.0-0.0); Neutrophils # (A) 4.24 X 10*3/uL (1.80-7.70); Neutrophils % (A) 64.9 %; Platelet Count 302 X 10*3/uL (140-440); RBC 4.63 X 10*6/uL (4.10-5.20); RDW 14.8 % (11.5-14.5); WBC 6.53 X 10*3/uL (4.50-10.00)
[2022-12-23 18:18] LABS: Uric Acid 3.9 mg/dL (2.9-7.7)
== END | disposition home or self-care (01) ==
LOC: LABWHC1 11:09
PROVIDERS: ATTEND Internal Medicine
DX: M25.461 Effusion, right knee (principal)
CPT/HCPCS: 36415; 84450; 84460; 84550; 85025

== ENCOUNTER → 2023-01-05 | Outpatient (CLI) | payer OTHER ==
[2023-01-05 09:52] LABS: INR 0.9 (<1.2); Partial Thromboplastin Time 23.8 sec (22.0-30.0); Prothrombin Time 9.6 sec (9.0-12.0)
[2023-01-05 14:59] LABS: Rheumatoid Factor, Qnt <10 IU/mL (0-15)
[2023-01-05 17:44] LABS: Immunoglobulin E 9.48 IU/mL (0.00-114.00)
[2023-01-06 15:19] LABS: C-ANCA <1:20 Titer (<1:20)
[2023-01-06 19:10] LABS: Albumin 4.05 g/dL (3.80-4.90); Gamma Globulin 1.18 g/dL (0.70-1.50)
[2023-01-07 00:25] LABS: Anti-DNA, DS unit <1.0 IU/mL; Anti-Smith Ab Interp NEGATIVE (NEGATIVE); DNA Double-Stranded NEGATIVE (NEGATIVE)
== END | disposition home or self-care (01) ==
LOC: LABWHC1 08:21
PROVIDERS: ATTEND Internal Medicine
DX: I10 Essential (primary) hypertension (principal); J45.909 Unspecified asthma, uncomplicated; M19.90 Unspecified osteoarthritis, unspecified site; D89.9 Disorder involving the immune mechanism, unspecified
CPT/HCPCS: 36415; 82785; 84165; 84550; 85610; 85652; 85730; 86038; 86140; 86160; 86162; 86200; 86225; 86235; 86255; 86334; 86335; 86431

== ENCOUNTER → 2023-03-01 | Outpatient (CLI) | payer OTHER ==
--- NOTE | 2023-03-01 13:59 | XR ---
EXAMINATION TYPE: XR sacroiliac joint comp 3 views BILAT, XR Hip Complete LT 2 views DATE OF EXAM: 03/01/2023 COMPARISON: NONE HISTORY: 37-year-old female M25.552, left hip pain FINDINGS: SI joints: SI joints appear symmetric and intact. No subarticular erosions are appreciated. Small delineation to the arcuate lines of the sacrum. Left hip: The left hip joint appears intact. Joint space is maintained. No acute fracture, subluxation, disloca tion. IMPRESSION: Bilateral SI joints and left hip without acute osseous abnormality seen. No significant degenerative change appreciated.
[2023-03-01 15:40] LABS: Basophils # (A) 0.07 X 10*3/uL (0.00-0.10); Basophils % (A) 0.7 %; Eosinophils # (A) 0.15 X 10*3/uL (0.04-0.35); Eosinophils % (A) 1.6 %; HCT 43.4 % (37.2-46.3); HGB 14.1 g/dL (12.0-15.0); Immature Grans, Automated 0.3 %; Lymphocytes # (A) 2.35 X 10*3/uL (0.90-5.00); Lymphocytes % (A) 24.4 %; MCHC 32.5 g/dL (32.0-37.0); MCV 86.1 fL (80.0-97.0); Mean Platelet Volume 9.6 fL (9.5-12.2); Monocytes # (A) 0.54 X 10*3/uL (0.20-1.00); Monocytes % (A) 5.6 %; NRBC Per 100 WBC 0 /100 WBCS (0.0-0.0); Neutrophils # (A) 6.49 X 10*3/uL (1.80-7.70); Neutrophils % (A) 67.4 %; Platelet Count 364 X 10*3/uL (140-440); RBC 5.04 X 10*6/uL (4.10-5.20); RDW 14.1 % (11.5-14.5); WBC 9.63 X 10*3/uL (4.50-10.00)
[2023-03-01 15:52] LABS: INR 0.9 (<1.2); Partial Thromboplastin Time 24.1 sec (22.0-30.0); Prothrombin Time 9.9 sec (9.0-12.0)
[2023-03-01 17:09] LABS: C Reactive Protein <0.30 mg/dL (0.00-0.80); Creatine Kinase 49 U/L (26-186); Rheumatoid Factor, Qnt <10 IU/mL (0-15); Uric Acid 3.2 mg/dL (2.9-7.7)
[2023-03-01 22:21] LABS: Cyclic Citrull Pep IgG Unit <1.5 U/mL; Cyclic Citrullinated Pep IgG NEGATIVE (NEGATIVE)
[2023-03-02 12:13] LABS: Immunoglobulin E 6.64 IU/mL (0.00-114.00)
== END | disposition home or self-care (01) ==
LOC: LABWHC1 11:36
PROVIDERS: ATTEND Internal Medicine
DX: I10 Essential (primary) hypertension (principal); M46.1 Sacroiliitis, not elsewhere classified; M25.552 Pain in left hip; R26.9 Unspecified abnormalities of gait and mobility; E66.9 Obesity, unspecified; J45.909 Unspecified asthma, uncomplicated; M19.90 Unspecified osteoarthritis, unspecified site; M10.9 Gout, unspecified; M06.9 Rheumatoid arthritis, unspecified; D89.9 Disorder involving the immune mechanism, unspecified
CPT/HCPCS: 36415; 72202; 73502; 82550; 82785; 84550; 85025; 85610; 85730; 86140; 86200; 86431

== ENCOUNTER → 2023-03-19 | Outpatient (CLI) | payer OTHER ==
--- NOTE | 2023-03-19 17:00 | XR ---
EXAMINATION TYPE: XR chest 2V DATE OF EXAM: 03/19/2023 4:48 PM COMPARISON: Chest radiographs from 09/15/2022 TECHNIQUE: XR chest 2V Frontal and lateral views of the chest. CLINICAL INDICATION:Female, 37 years old with history of Z01.818 Pre operative; FINDINGS: Lungs/Pleura: There is no evidence of pleural effusion, focal consolidation, or pneumothorax. Pulmonary vascularity: Unremarkable. Heart/mediastinum: Cardiomediastinal silhouette is unremarkable. Musculoskeletal: No acute osseous pathology. IMPRESSION: No acute cardiopulmonary disease/process.
[2023-03-20 02:52] LABS: ALT 21 U/L (8-44); AST 21 U/L (13-35); Albumin 4.2 d/dL (3.8-4.9); Albumin/Globulin Ratio 1.56 Ratio (1.60-3.17); Alkaline Phosphatase 102 U/L (41-126); BUN/Creat Ratio 18.25 Ratio (12.00-20.00); Blood Urea Nitrogen 14.6 mg/dL (9.0-27.0); Calcium 9.5 mg/dL (8.7-10.3); Carbon Dioxide 24.2 mmol/L (21.6-31.8); Chloride 101 mmol/L (96-109); Globulin 2.7 d/dL (1.6-3.3); Glucose 90 mg/dL (70-110); Potassium 4.2 mmol/L (3.5-5.5); Sodium 138 mmol/L (135-145); Total Bilirubin 0.8 mg/dL (0.3-1.2); Total Protein 6.9 d/dL (6.2-8.2)
[2023-03-20 05:33] LABS: Appearance,Urine Clear (Clear); Bilirubin,Urine Negative (Negative); Blood,Urine Negative (Negative); Color,Urine Yellow (Yellow); Ketones,Urine Negative (Negative); Nitrite,Urine Negative (Negative); PH, Urine 7.5; Specific Gravity,Urine 1.023 (1.001-1.030)
== END | disposition home or self-care (01) ==
LOC: LABWHC1 16:12
PROVIDERS: ATTEND Internal Medicine
DX: Z01.812 Encounter for preprocedural laboratory examination (principal)
CPT/HCPCS: 36415; 71046; 80053; 81003; 87086

== ENCOUNTER → 2023-09-23 | Outpatient (CLI) | payer OTHER ==
[2023-09-23 11:20] LABS: BUN/Creat Ratio 16.71 Ratio (12.00-20.00); Blood Urea Nitrogen 11.7 mg/dL (9.0-27.0); Calcium 9.4 mg/dL (8.7-10.3); Carbon Dioxide 28.9 mmol/L (21.6-31.8); Chloride 101 mmol/L (96-109); Glucose 89 mg/dL (70-110); Magnesium 1.9 mg/dL (1.5-2.4); Phosphorus 2.9 mg/dL (2.4-5.1); Potassium 4.2 mmol/L (3.5-5.5); Sodium 138 mmol/L (135-145)
== END | disposition home or self-care (01) ==
LOC: LABWHC1 07:46
PROVIDERS: ATTEND Internal Medicine
DX: E11.65 Type 2 diabetes mellitus with hyperglycemia (principal)
CPT/HCPCS: 36415; 80048; 83036; 83735; 84100; 85652

== ENCOUNTER → 2023-10-05 | Outpatient (CLI) | payer OTHER | END | disposition home or self-care (01) | LOC: LABWHC1 10:35 | PROVIDERS: ATTEND Internal Medicine | DX: N92.6 Irregular menstruation, unspecified (principal) | CPT/HCPCS: 36415; 84702 ==

== ENCOUNTER → 2023-11-17 | Outpatient (CLI) | payer OTHER ==
--- NOTE | 2023-11-18 08:46 | MM ---
Reason for Exam: Screening (asymptomatic). Last mammogram was performed 4 year(s) and 1 month(s) ago. Patient History: Menarche at age 8. First Full-Term at age 35. Late child-bearing (after 30). Premenopausal. 2013, Bilateral Reduction. Risk Values: Mimi 5 year model risk: 0.8%. NCI Lifetime model risk: 14.8%. Prior Study Comparison: 10/13/2019 Bilateral Screening Mammogram, [facility]. Tissue Density: The breast tissue is heterogeneously dense. This may lower the sensitivity of mammography. Findings: Analyzed By CAD. There is no suspicious group of microcalcifications or new suspicious mass in either breast. Benign calcifications. Subareolar density on the right. Overall Assessment: Incomplete: need additional imaging evaluation, BI-RAD 0 Management: Special View Mammogram of the right breast. . Patient should continue monthly self-breast exams. A clinical breast exam by your physician is recommended on an annual basis. This exam should not preclude additional follow-up of suspicious palpable abnormalities. Note on Mimi scores and lifetime risk: 1. A Mimi score greater than 3% is considered moderate risk. If this is the case, consider specialist referral to assess eligibility for a risk reducing agent. 2. If overall lifetime risk for the development of breast cancer is 20% or higher, the patient may qualify for future screening with alternating mammogram and breast MRI. Electronically signed and approved by: Josias Adams M.D. Radiologis
== END | disposition home or self-care (01) ==
LOC: RADMAMWWP 14:19
PROVIDERS: ATTEND Obstetrics & Gynecology
DX: Z12.31 Encounter for screening mammogram for malignant neoplasm of breast (principal)
CPT/HCPCS: 77063; 77067

== ENCOUNTER → 2023-11-19 | Outpatient (CLI) | payer OTHER ==
--- NOTE | 2023-11-19 08:53 | MM ---
Reason for Exam: Additional evaluation requested from prior study. Last screening mammogram was performed less than 1 month ago. Patient History: Menarche at age 8. First Full-Term at age 35. Late child-bearing (after 30). Premenopausal. 2014, Bilateral Reduction. Risk Values: Mimi 5 year model risk: 0.6%. NCI Lifetime model risk: 9.6%. Tissue Density: Right: The breast tissue is heterogeneously dense. This may lower the sensitivity of mammography. Findings: Analyzed By CAD. Area of distortion is much improved on spot compression imaging. Precautionary six-month follow-up mammography of the right breast is advised. Overall Assessment: Probably benign, BI-RAD 3 Management: Diagnostic Mammogram of the right breast. . Results were given to the patient verbally at the time of exam. Patient should continue monthly self-breast exams. A clinical breast exam by your physician is recommended on an annual basis. This exam should not preclude additional follow-up of suspicious palpable abnormalities. Note on Mimi scores and lifetime risk: 1. A Mimi score greater than 3% is considered moderate risk. If this is the case, consider specialist referral to assess eligibility for a risk reducing agent. 2. If overall lifetime risk for the development of breast cancer is 20% or higher, the patient may qualify for future screening with alternating mammogram and breast MRI. Electronically signed and approved by: Mario Hill M.D. Radiologis
== END | disposition home or self-care (01) ==
LOC: RADMAMWWP 08:26
PROVIDERS: ATTEND Obstetrics & Gynecology
DX: R92.8 Other abnormal and inconclusive findings on diagnostic imaging of breast (principal); R92.331 Mammographic heterogeneous density, right breast
CPT/HCPCS: 77061; 77065

== ENCOUNTER → 2024-03-18 | Outpatient (CLI) | payer OTHER ==
[2024-03-18 13:28] LABS: ALT 21 U/L (8-44); AST 22 U/L (13-35); Albumin 4.2 g/dL (3.8-4.9); Albumin/Globulin Ratio 1.75 Ratio (1.60-3.17); Alkaline Phosphatase 77 U/L (41-126); BUN/Creat Ratio 12.12 Ratio (12.00-20.00); Blood Urea Nitrogen 9.7 mg/dL (9.0-27.0); Calcium 9.1 mg/dL (8.7-10.3); Carbon Dioxide 23.2 mmol/L (21.6-31.8); Chloride 102 mmol/L (96-109); Globulin 2.4 g/dL (1.6-3.3); Glucose 84 mg/dL (70-110); Potassium 4.1 mmol/L (3.5-5.5); Sodium 137 mmol/L (135-145); Total Bilirubin 1.2 mg/dL (0.3-1.2); Total Protein 6.6 g/dL (6.2-8.2)
[2024-03-18 18:50] LABS: INR 1.03 sec (0.93-1.11); Prothrombin Time 11.1 sec (9.9-11.9)
[2024-03-18 19:45] LABS: Appearance,Urine Cloudy (Clear); Bilirubin,Urine Negative (Negative); Blood,Urine Negative (Negative); Color,Urine Yellow (Yellow); Ketones,Urine Negative (Negative); Nitrite,Urine Negative (Negative); PH, Urine 6.5; Specific Gravity,Urine 1.021 (1.001-1.030)
[2024-03-18 20:54] LABS: Bacteria,Urine 3+ (None Seen)
== END | disposition home or self-care (01) ==
LOC: LABWHC1 07:47
PROVIDERS: ATTEND Internal Medicine
DX: I10 Essential (primary) hypertension (principal); D64.9 Anemia, unspecified; E87.8 Other disorders of electrolyte and fluid balance, not elsewhere classified
CPT/HCPCS: 36415; 80053; 81001; 85025; 85610; 85730

== ENCOUNTER → 2024-03-20 | Outpatient (CLI) | payer OTHER ==
[2024-03-20 13:55] LABS: Basophils # (A) 0.1 k/uL (0-0.2); Basophils % (A) 1 %; Eosinophils # (A) 0.1 k/uL (0-0.7); Eosinophils % (A) 2 %; HCT 44.2 % (34.0-46.0); HGB 14.5 gm/dL (11.4-16.0); Lymphocytes # (A) 2.1 k/uL (1.0-4.8); Lymphocytes % (A) 23 %; MCH 29.2 pg (25.0-35.0); MCHC 32.7 g/dL (31.0-37.0); MCV 89.2 fL (80.0-100.0); Mean Platelet Volume 7.7; Monocytes # (A) 0.3 k/uL (0-1.0); Monocytes % (A) 3 %; Neutrophils # (A) 6.7 k/uL (1.3-7.7); Neutrophils % (A) 71 %; Platelet Count 287 k/uL (150-450); RBC 4.96 m/uL (3.80-5.40); RDW 13.3 % (11.5-15.5); WBC 9.5 k/uL (3.8-10.6)
== END | disposition home or self-care (01) ==
LOC: LABWHC1 13:11
PROVIDERS: ATTEND Internal Medicine
DX: I10 Essential (primary) hypertension (principal); D64.9 Anemia, unspecified; E87.8 Other disorders of electrolyte and fluid balance, not elsewhere classified
CPT/HCPCS: 36415; 85025; 85730

== ENCOUNTER → 2024-06-13 | Outpatient (CLI) | payer OTHER ==
--- NOTE | 2024-06-13 09:30 | US ---
EXAMINATION TYPE: US abdomen complete DATE OF EXAM: 06/13/2024 COMPARISON: US 2022 CLINICAL INDICATION: Female, 38 years old with history of R10.84 AB PAIN; Intermittent abdomen pain x 6 months TECHNIQUE: Multiple sonographic images of the abdomen are obtained. FINDINGS: EXAM MEASUREMENTS: Liver Length: 15.8 cm CBD: 0.3 cm Spleen: 11.2 cm Right Kidney: 10.0 x 4.7 x 4.7 cm Left Kidney: 10.2 x 4.3 x 4.7 cm Difficult and limited study due to patient body habitus Pancreas: visualized portions wnl, limited by overlying midline bowel gas Liver: attenuating, mildly heterogeneous Gallbladder: surgically absent Evidence for sonographic Sun's sign: no CBD: visualized portions wnl, limited by overlying bowel gas Spleen: wnl Right Kidney: visualized portions wnl, limited by overlying bowel gas Left Kidney: visualized portions wnl, limited by overlying bowel gas Upper IVC: wnl Abd Aorta: visualized portions wnl, limited by overlying midline bowel gas The liver is demonstrates increased echotexture. No focal masses definitively visualized in the liver . The intrahepatic portion of the IVC and proximal abdominal aorta are within normal limits. Common bile duct is unremarkable. The visualized portions of the pancreas are homogenous. The spleen is un remarkable. Kidneys are symmetric and free of hydronephrosis. No renal lesions are seen. IMPRESSION: 1. No acute process, 2. Hepatocellular disease commonly relating to hepatic steatosis.
--- NOTE | 2024-06-13 10:42 | XR ---
EXAMINATION TYPE: XR abdomen 2V DATE OF EXAM: 06/13/2024 10:01 AM CLINICAL INDICATION: Female, 38 years old with history of R10.9 ABD PAIN; COMPARISON: None. TECHNIQUE: Two views of the abdomen were obtained. FINDINGS: The bowel gas pattern is nonspecific without dilated loops of small or large bowel. There i s no evidence for organomegaly or pneumoperitoneum. The osseous structures are intact. No abnormal calcifications are present. Fecal material and gas are demonstrated throughout the colon and rectum. IMPRESSION: Nonspecific bowel gas pattern without radiographic evidence for acute process.
--- NOTE | 2024-06-13 10:43 | XR ---
EXAMINATION TYPE: XR chest 2V DATE OF EXAM: 06/13/2024 10:01 AM CLINICAL INDICATION: Female, 38 years old with history of R05.9 COUGH; [facility] COMPARISON: Chest radiographs from 03/19/2023 TECHNIQUE: XR chest 2V Frontal view of the chest. FINDINGS: Lungs/Pleura: There is no evidence of pleural effusion, focal consolidation, or pneumothorax. Pulmonary vascularity: Unremarkable. Heart/mediastinum: Cardiomediastinal silhouette is unremarkable. Musculoskeletal: No acute osseous pathology. Other findings: None IMPRESSION: No acute cardiopulmonary disease/process.
[2024-06-13 16:51] LABS: Basophils # (A) 0.03 X 10*3/uL (0.00-0.10); Basophils % (A) 0.3 %; Eosinophils # (A) 0.14 X 10*3/uL (0.04-0.35); Eosinophils % (A) 1.6 %; HCT 40.7 % (37.2-46.3); HGB 13.4 g/dL (12.0-15.0); Lymphocytes # (A) 1.68 X 10*3/uL (0.90-5.00); Lymphocytes % (A) 18.7 %; MCH 29.1 pg (27.0-32.0); MCHC 32.9 g/dL (32.0-37.0); MCV 88.5 FL (80.0-97.0); Mean Platelet Volume 10.2 FL (9.5-12.2); Monocytes % (A) 4.4 %; NRBC Per 100 WBC 0 X 10*3/uL (0.00-0.01); Neutrophils # (A) 6.71 X 10*3/uL (1.80-7.70); Neutrophils % (A) 74.7 %; Platelet Count 337 X 10*3/uL (140-440); RDW 13.2 % (11.5-14.5); WBC 8.99 X 10*3/uL (4.50-10.00)
[2024-06-13 17:03] LABS: BUN/Creat Ratio 11.71 Ratio (12.00-20.00); Blood Urea Nitrogen 8.2 mg/dL (9.0-27.0); Carbon Dioxide 27.2 mmol/L (21.6-31.8); Chloride 101 mmol/L (96-109); Glucose 98 mg/dL (70-110); Potassium 3.4 mmol/L (3.5-5.5); Sodium 139 mmol/L (135-145)
== END | disposition home or self-care (01) ==
LOC: RADUSWWP 08:21
PROVIDERS: ATTEND Internal Medicine
DX: R10.84 Generalized abdominal pain (principal); J12.9 Viral pneumonia, unspecified; K76.0 Fatty (change of) liver, not elsewhere classified; K76.9 Liver disease, unspecified
CPT/HCPCS: 71046; 74019; 76700; 80048; 85025

== ENCOUNTER → 2024-06-14 | Outpatient (CLI) | payer OTHER ==
--- NOTE | 2024-06-14 10:12 | MM ---
Reason for Exam: Follow-up at short interval from prior study. Last screening mammogram was performed 7 month(s) ago. Patient History: Menarche at age 8. First Full-Term at age 35. Late child-bearing (after 30). Premenopausal. 2013, Bilateral Reduction. Risk Values: Mimi 5 year model risk: 0.6%. NCI Lifetime model risk: 9.6%. Prior Study Comparison: 10/13/2019 Bilateral Screening Mammogram, [facility]. 11/17/2023 Bilateral MG 3D screening mammo w/cad, [facility]. 11/19/2023 Right MG 3D work up w/cad RT, [facility]. Tissue Density: Right: There are scattered areas of fibroglandular density. Findings: Analyzed By CAD. No new suspicious masses, calcifications or distortions. Overall Assessment: Negative, BI-RAD 1 Management: Screening Mammogram of both breasts in 6 months. Results were given to the patient verbally at the time of exam. Patient should continue monthly self-breast exams. A clinical breast exam by your physician is recommended on an annual basis. This exam should not preclude additional follow-up of suspicious palpable abnormalities. Note on Mmii scores and lifetime risk: 1. A Mimi score greater than 3% is considered moderate risk. If this is the case, consider specialist referral to assess eligibility for a risk reducing agent. 2. If overall lifetime risk for the development of breast cancer is 20% or higher, the patient may qualify for future screening with alternating mammogram and breast MRI. Electronically signed and approved by: Ranjit Alexander DO
== END | disposition home or self-care (01) ==
LOC: RADMAMWWP 09:35
PROVIDERS: ATTEND Internal Medicine
DX: R92.8 Other abnormal and inconclusive findings on diagnostic imaging of breast
CPT/HCPCS: 77061; 77065

== ENCOUNTER → 2024-06-20 | Outpatient (CLI) | payer OTHER | END | disposition home or self-care (01) | LOC: LABWHC1 09:21 | PROVIDERS: ATTEND Internal Medicine | DX: N91.2 Amenorrhea, unspecified (principal) | CPT/HCPCS: 36415; 84702 ==

== ENCOUNTER → 2024-06-22 | Outpatient (CLI) | payer OTHER | END | disposition home or self-care (01) | LOC: LABWHC1 07:54 | PROVIDERS: ATTEND Internal Medicine | DX: N91.2 Amenorrhea, unspecified (principal) | CPT/HCPCS: 36415; 84702 ==

== ENCOUNTER 2024-07-01 17:49 | Emergency (ER) | payer OTHER ==
[2024-07-01 17:54] VITALS: RESP 18; TEMP 97.7
--- NOTE | 2024-07-01 18:34 | ED ---
Abdominal Pain HPI - General Chief Complaint: Abdominal Pain Stated Complaint: 7wks preg/Cramping Time Seen by Provider: 07/01/24 17:55 Source: patient, RN notes reviewed Mode of arrival: ambulatory Limitations: no limitations - History of Present Illness Initial Comments: This is a 38-year-old female who presents to the emergency department for abdominal pain. Patient is 7 weeks and . States that a couple of days ago she had some light spotting however this then resolved. She has since had intermittent bouts of pain in her abdomen. This is particularly in the periumbilical and RLQ region. Also reports problems with persistent nausea but no vomiting. Denies any history of similar pain in the past. Unsure if it is related to indigestion or another issue. She is still trying to become established with Dr. Salazar for ongoing obstetrics care. MD Complaint: abdominal pain - Related Data Home Medications Medication Instructions Recorded Confirmed Albuterol Sulfate [Proair Hfa] 2 puff INHALATION RT-QID PRN 11/04/22 11/04/22 Budesonide/Formoterol Fumarate 1 puff INHALATION RT-BID PRN 11/04/22 11/04/22 [Symbicort 80-4.5 Mcg Inhaler] Previous Rx's Medication Instructions Recorded HYDROcodone/APAP 5-325MG [[place] 1 tab PO Q6HR PRN 3 Days #6 tab 11/08/22 5-325] metroNIDAZOLE [Flagyl] 500 mg PO TID #15 tab 11/08/22 Cephalexin [Keflex] 500 mg PO Q8HR 5 Days #15 cap 07/01/24 Ondansetron Odt [Zofran Odt] 4 mg PO Q8HR PRN #30 tab 07/01/24 Allergies Allergy/AdvReac Type Severity Reaction Status Date / Time codeine Allergy Rash/Hives Verified 07/01/24 17:54 Penicillins Allergy Rash/Hives Verified 07/01/24 17:54 Review of Systems ROS Statement: Those systems with pertinent positive or pertinent negative responses have been documented in the HPI. ROS Other: All systems not noted in ROS Statement are negative. Past Medical History Past Medical History: Asthma, GERD/Reflux Additional Past Medical History / Comment(s): Hx Gestational Diabetes. History of Any Multi-Drug Resistant Organisms: None Reported Past Surgical History: Breast Surgery, Section, Orthopedic Surgery, Tonsillectomy Additional Past Surgical History / Comment(s): CYST REMOVED RT WRIST, LT HEEL SPUR REMOVED, BREAST REDUCTION, CTR-RT HAND, D&C. Past Anesthesia/Blood Transfusion Reactions: Motion Sickness, Postoperative Nausea & Vomiting (PONV) Past Psychological History: Depression Smoking Status: Never smoker Past Alcohol Use History: Rare Past Drug Use History: None Reported - Past Family History Mother Family Medical History: No Reported History General Exam Limitations: no limitations General appearance: alert, in no apparent distress Head exam: Present: atraumatic, normocephalic, normal inspection Respiratory exam: Present: normal lung sounds bilaterally. Absent: respiratory distress, wheezes, rales, rhonchi, stridor Cardiovascular Exam: Present: regular rate, normal rhythm, normal heart sounds. Absent: systolic murmur, diastolic murmur, rubs, gallop, clicks Neurological exam: Present: alert, oriented X3, CN II-XII intact Psychiatric exam: Present: normal affect, normal mood Skin exam: Present: warm, dry, intact, normal color. Absent: rash Course Vital Signs 07/01/24 07/01/24 07/01/24 17:50 20:14 20:56 Temperature 97.7 F Pulse Rate 99 99 89 Respiratory 18 18 18 Rate Blood Pressure 126/81 131/80 124/71 O2 Sat by Pulse 97 97 99 Oximetry Medical Decision Making - Medical Decision Making This is a 38-year-old female who presents to the emergency department for abdominal pain. Was pt. sent in by a medical professional or institution? @ -No Did you speak to anyone other than the patient for history? @ -No Did you review nursing and triage notes? @ -Yes, and I agree, it is accurate with regards to the patient's symptoms. Were old charts reviewed? @ -No Differential Diagnosis? @ -Differential Abdominal Pain Women: Appendicitis, Cholecystitis, diverticulosis, ischemic bowel, pancreatitis, hepatitis, UTI, gastroenteritis, AAA, incarcerated hernia, bowel obstruction, constipation, inflammatory bowel, hepatitis, peptic ulcer disease, splenic infarction, perforated viscus, vulvitis, ovarian torsion, PID, kidney stone, placenta abruption, this is not meant to be an all-inclusive list EKG interpreted by me (3pts min.)? @ -Not obtained X-rays interpreted by me (1pt min.)? @ -Not obtained CT interpreted by me (1pt min.)? @ -Not obtained U/S interpreted by me (1pt. min.)? @ -Ultrasound was obtained. My interpretation identifies a single live intrauterine . Ultrasound of the appendix obtained. My interpretation is unable to identify the appendix. What testing was considered but not performed? (CT, X-rays, U/S, labs)? Why? @ -None What meds were considered but not given? Why? @ -None Did you discuss the management of the patient with other professionals? @ -No Did you reconcile home meds? @ -No Was smoking cessation discussed for >3mins.? @ -No Was critical care preformed (if so, how long)? @ -No Were there social determinants of health that impacted care today? How? (Homelessness, low income, unemployed, alcoholism, drug addiction, transportation, low edu. Level, literacy, decrease access to med. care, fci, rehab)? @ -No Was there de-escalation of care discussed even if they declined? (Discuss DNR or withdrawal of care, Hospice)? @ -No What co-morbidities impacted this encounter? (DM, HTN, Smoking, COPD, CAD, Cancer, CVA, Hep., AIDS, mental health diagnosis, sleep apnea, morbid obesity)? @ -, GERD Was patient admitted / discharged? @ -Discharged. Lab work demonstrates mild leukocytosis [place] [address]. Urinalysis does have occasional bacteria. Urine sent for culture. Obstetrics ultrasound demonstrates a single intrauterine gestational sac with cardiac activity measured at 163 bpm. pole could not be measured, which was thought to be due to early gestational age. Ultrasound of the appendix obtained as well, however the appendix could not be visualized. Findings reviewed with the patient. Advised that appendicitis cannot be ruled out, but is not the most likely cause of her pain at this time. Advised Tylenol as needed for pain relief. She took Zofran in prior pregnancies for nausea and it was the only thing she found relatively effective. This was refilled given her problem with nausea. Given that urinalysis does have some bacteria, will treat patient for asymptomatic bacteriuria. Prescription for Keflex provided. Urine sent for culture as well. Patient discharged home in stable condition. Advised she continue trying to become established with [facility] and take a daily vitamin. Case discussed with ED attending Dr. Henry. Return precautions reviewed in depth, the patient is instructed to return to the emergency department with any new, worsening, or concerning symptoms. Patient verbalized understanding. Undiagnosed new problem with uncertain prognosis? @ -None Drug Therapy requiring intensive monitoring for toxicity (Heparin, Nitro, Insulin, Cardizem)? @ -None Were any procedures done? @ -None Diagnosis/symptom? @ -Abdominal pain in , bacteriuria Acute, or Chronic, or Acute on Chronic? @ -Acute Uncomplicated (without systemic symptoms) or Complicated (systemic symptoms)? @ -Uncomplicated Side effects of treatment? @ -None Exacerbation, Progression, or Severe Exacerbation] @ -Not applicable Poses a threat to life or bodily function? @ -No - Lab Data Result diagrams: 07/01/24 18:57 07/01/24 18:57 Lab Results 07/01/24 07/01/24 07/01/24 Range/Units 18:57 18:57 18:57 WBC 10.7 H (3.8-10.6) k/uL RBC 4.85 (3.80-5.40) m/uL Hgb 14.0 (11.4-16.0) gm/dL Hct 43.6 (34.0-46.0) % MCV 89.9 (80.0-100.0) fL MCH 28.8 (25.0-35.0) pg MCHC 32.0 (31.0-37.0) g/dL RDW 14.0 (11.5-15.5) % Plt Count 370 (150-450) k/uL MPV 6.9 Neutrophils % 76 % Lymphocytes % 18 % Monocytes % 4 % Eosinophils % 1 % Basophils % 0 % Neutrophils # 8.1 H (1.3-7.7) k/uL Lymphocytes # 1.9 (1.0-4.8) k/uL Monocytes # 0.4 (0-1.0) k/uL Eosinophils # 0.1 (0-0.7) k/uL Basophils # 0.1 (0-0.2) k/uL Sodium 136 L (137-145) mmol/L Potassium 3.9 (3.5-5.1) mmol/L Chloride 104 (98-107) mmol/L Carbon Dioxide 28 (22-30) mmol/L Anion Gap 4 mmol/L BUN 9 (7-17) mg/dL Creatinine 0.83 (0.52-1.04) mg/dL Est GFR (CKD-EPI)AfAm >90 (>60 ml/min/1.73 sqM) Est GFR (CKD-EPI)NonAf 89 (>60 ml/min/1.73 sqM) Glucose 87 (74-99) mg/dL Calcium 9.5 (8.4-10.2) mg/dL Total Bilirubin 0.9 (0.2-1.3) mg/dL AST 21 (14-36) U/L ALT 21 (4-34) U/L Alkaline Phosphatase 106 (38-126) U/L Total Protein 6.3 (6.3-8.2) g/dL Albumin 3.8 (3.5-5.0) g/dL HCG, Quant 81515.9 mIU/mL Urine Color Yellow Urine Appearance Cloudy H (Clear) Urine pH 5.5 (5.0-8.0) Ur Specific Chambers 1.029 (1.001-1.035) Urine Protein Trace H (Negative) Urine Glucose (UA) Negative (Negative) Urine Ketones Negative (Negative) Urine Blood Negative (Negative) Urine Nitrite Negative (Negative) Urine Bilirubin Negative (Negative) Urine Urobilinogen <2.0 (<2.0) mg/dL Ur Leukocyte Esterase Small H (Negative) Urine RBC 2 (0-5) /hpf Urine WBC 13 H (0-5) /hpf Ur Squamous Epith Cells 8 H (0-4) /hpf Amorphous Sediment Rare H (None) /hpf Urine Bacteria Occasional H (None) /hpf Hyaline Casts 5 H (0-2) /lpf Urine Mucus Moderate H (None) /hpf - Radiology Data Radiology results: report reviewed, image reviewed Disposition Clinical Impression: Abdominal pain in , Bacteriuria Disposition: HOME SELF-CARE Condition: Good Instructions (If sedation given, give patient instructions): Abdominal Pain in (ED), Urinary Tract Infection in (ED) Additional Instructions: Return to the emergency department with any new, worsening, or concerning symptoms. Take the antibiotic as prescribed for 5 days. Take the Zofran up to every 8 hours as needed for nausea and vomiting. You can also take [id number] vitamin B6 with Unisom. Take Tylenol as needed for pain relief. Continue trying to become established with [facility] for ongoing obstetrics care. Prescriptions: Cephalexin [Keflex] 500 mg PO Q8HR 5 Days #15 cap Ondansetron Odt [Zofran Odt] 4 mg PO Q8HR PRN #30 tab PRN Reason: Nausea And Vomiting Is patient prescribed a controlled substance at d/c from ED?: No Referrals: Erasto Chaidez MD [Primary Care Provider] - 1-2 days Allie Salazar DO [Doctor of Osteopathic Medicine] - 1-2 days Time of Disposition: 20:43
[2024-07-01] MEDS: SODIUM CHLORIDE 0.9% 1,000 ML IV STA (18:49)
[2024-07-01] MEDS: diphenhydrAMINE 50 MG/ML 1 ML VIAL IVP STA (18:50)
[2024-07-01] MEDS: METOCLOPRAMIDE 5 MG/ML 2 ML VIAL IVP STA (18:50)
[2024-07-01] MEDS: PYRIDOXINE 100 MG/ML 1 ML VIAL IVP STA (18:51)
[2024-07-01 19:20] LABS: Basophils # (A) 0.1 k/uL (0-0.2); Basophils % (A) 0 %; Eosinophils # (A) 0.1 k/uL (0-0.7); Eosinophils % (A) 1 %; HCT 43.6 % (34.0-46.0); Lymphocytes # (A) 1.9 k/uL (1.0-4.8); Lymphocytes % (A) 18 %; MCH 28.8 pg (25.0-35.0); MCV 89.9 fL (80.0-100.0); Mean Platelet Volume 6.9; Monocytes # (A) 0.4 k/uL (0-1.0); Monocytes % (A) 4 %; Neutrophils # (A) 8.1 k/uL (1.3-7.7); Neutrophils % (A) 76 %; Platelet Count 370 k/uL (150-450); RBC 4.85 m/uL (3.80-5.40); WBC 10.7 k/uL (3.8-10.6)
[2024-07-01 19:37] LABS: ALT 21 U/L (4-34); AST 21 U/L (14-36); African American GFR (CKD) >90 (>60 ml/min/1.73 sqM); Albumin 3.8 g/dL (3.5-5.0); Alkaline Phosphatase 106 U/L (38-126); Anion Gap 4 mmol/L; Blood Urea Nitrogen 9 mg/dL (7-17); Calcium 9.5 mg/dL (8.4-10.2); Carbon Dioxide 28 mmol/L (22-30); Chloride 104 mmol/L (98-107); Glucose 87 mg/dL (74-99); Non-African American GFR(CKD) 89 (>60 ml/min/1.73 sqM); Potassium 3.9 mmol/L (3.5-5.1); Sodium 136 mmol/L (137-145); Total Bilirubin 0.9 mg/dL (0.2-1.3); Total Protein 6.3 g/dL (6.3-8.2)
[2024-07-01 19:53] LABS: HCG,Quantitative Serum 10641.9 mIU/mL
[2024-07-01 19:56] LABS: Amorphous Sediment,Urine Rare /hpf; Appearance,Urine Cloudy (Clear); Bacteria,Urine Occasional /hpf; Bilirubin,Urine Negative (Negative); Blood,Urine Negative (Negative); Color,Urine Yellow; Glucose,Urine (UA) Negative (Negative); Hyaline Casts,Urine 5 /lpf (0-2); Ketones,Urine Negative (Negative); Leukocyte Esterase,Urine Small (Negative); Mucus,Urine Moderate /hpf; Nitrite,Urine Negative (Negative); PH, Urine 5.5 (5.0-8.0); Protein,Urine Trace (Negative); RBC,Urine 2 /hpf (0-5); Specific Gravity,Urine 1.029 (1.001-1.035); Squamous Epithelial Cell,Urine 8 /hpf (0-4); Urobilinogen,Urine <2.0 mg/dL (<2.0); WBC,Urine 13 /hpf (0-5)
--- NOTE | 2024-07-01 20:22 | US ---
EXAMINATION TYPE: Transabdominal and transvaginal DATE OF EXAM: 07/01/2024 8:01 PM COMPARISON: NONE CLINICAL INDICATION: Female, 38 years old with history of Abdominal pain and bleeding in ; R LQ pain x a few hours vag bleeding preg EXAM PERFORMED: Transvaginal (TV) and Transabdominal (TA) EXAM MEASUREMENTS: GESTATIONAL AGE / DATING Physician Established: Not yet established Dates by LMP: 05/10/24 ( 7 weeks/3 days) EDC: 02/14/25 Dates by First Scan: No previous this is first scan Dates by Current Scan for: ( 5 weeks/2 days) MATERNAL ANATOMY Uterus: 9.4x5.9x7.1 Right Ovary: 2.6x1.9x1.7 Left Ovary: 1.9x2.4x2.0 Post CDS / Adnexa: wnl Presence of free fluid: no Presence of corpus luteal cyst: right ovary Presence of subchorionic bleed: no GESTATION / SURVEY CRL: unable to visualize MSD: 1.1 (5 weeks/2 days) Yolk Sac (normal less than 6mm): 3mm Heart Rate: 163 bpm Rhythm: Normal IUP: Viable IUP Date of LMP: 05/10/24 Beta HcG (if available): Not available at this time IMPRESSION: 1. Intrauterine gestational sac with yolk sac estimated at 5 weeks 2 days gestation based on the mean sac diameter. 2. pole and cardiac activity is not identified at this time. This may be a very early gestatio n. Follow-up imaging and correlation with beta hCG is recommended. [facility], , 07/01/2024 8:19 PM
--- NOTE | 2024-07-01 20:23 | US ---
EXAMINATION TYPE: US abdomen APPY DATE OF EXAM: 07/01/2024 COMPARISON: NONE CLINICAL INDICATION: Female, 38 years old with history of RLQ pain; RLQ pain x a few hours TECHNIQUE: Multiple sonographic images of the right lower quadrant were obtained with graded compress ion. FINDINGS: APPENDIX not visualized Is the appendix seen in its entirety from the proximal cecum to distal end: No Is there inflammatory changes or free fluid present: No CHILD LIFE THERAPIST NOTES: exam limited by large body habitus and bowel gas IMPRESSION: 1. Right lower quadrant ultrasound essentially nondiagnostic for appendicitis. Clinical management wi ll be required for any suspected appendicitis. [facility], , 07/01/2024 8:20 PM
[2024-07-01] MEDS: CEPHALEXIN 500 MG CAP PO STA (20:55)
[2024-07-01] MEDS: ONDANSETRON 4 MG ODT STARTER PACK 2 TAB BTL PO STA (20:56)
[2024-07-01 20:57] VITALS: BP 124/71; PULSE 89
--- NOTE | 2024-07-14 12:30 | US ---
ADDENDUM Addendum: Corrected IMPRESSION: 1. Intrauterine gestational sac with yolk sac estimated at 5 weeks 2 days gestation based on the mean sac diameter. 2. pole unable to be measured. 3. Cardiac activity is measured at 163 bpm. 4. This may be an early gestation. Follow-up imaging and beta hCG correlation recommended. [facility], , 07/01/2024 9:02 PM Addendum Dictated By:Luis Thompson DO Addendum Signed By: <Electronically signed by Luis Thompson DO in [place] > Signed Date/Time: 07/01/242103 EXAMINATION TYPE: Transabdominal and transvaginal DATE OF EXAM: 07/01/2024 8:01 PM COMPARISON: NONE CLINICAL INDICATION: Female, 38 years old with history of Abdominal pain and bleeding in ; RLQ pain x a few hours vag bleeding preg EXAM PERFORMED: Transvaginal (TV) and Transabdominal (TA) EXAM MEASUREMENTS: GESTATIONAL AGE / DATING Physician Established: Not yet established Dates by LMP: 05/10/24 ( 7 weeks/3 days) EDC: 02/14/25 Dates by First Scan: No previous this is first scan Dates by Current Scan for: ( 5 weeks/2 days) MATERNAL ANATOMY Uterus: 9.4x5.9x7.1 Right Ovary: 2.6x1.9x1.7 Left Ovary: 1.9x2.4x2.0 Post CDS / Adnexa: wnl Presence of free fluid: no Presence of corpus luteal cyst: right ovary Presence of subchorionic bleed: no GESTATION / SURVEY CRL: unable to visualize MSD: 1.1 (5 weeks/2 days) Yolk Sac (normal less than 6mm): 3mm Heart Rate: 163 bpm Rhythm: Normal IUP: Viable IUP Date of LMP: 05/10/24 Beta HcG (if available): Not available at this time IMPRESSION: 1. Intrauterine gestational sac with yolk sac estimated at 5 weeks 2 days gestation based on the mean sac diameter. 2. pole and cardiac activity is not identified at this time. This may be a very early gestation. Follow-up imaging and correlation with beta hCG is recommended. [facility], , 07/01/2024 8:19 PM MTDD
== END 2024-07-01 20:57 | disposition home or self-care (01) ==
LOC: EC 17:49
CPT/HCPCS: 36415; 76705; 76801; 76817; 80053; 81001; 84702; 85025; 86900; 86901; 87086; 96374; 96375; 99284

== ENCOUNTER → 2024-07-17 | Outpatient (CLI) | payer OTHER ==
[2024-07-17 11:35] LABS: BUN/Creat Ratio 9.12 Ratio (12.00-20.00); Blood Urea Nitrogen 7.3 mg/dL (9.0-27.0); Calcium 9.5 mg/dL (8.7-10.3); Carbon Dioxide 26.8 mmol/L (21.6-31.8); Chloride 103 mmol/L (96-109); Chol/HDL Ratio 4.14 Ratio; Glucose 92 mg/dL (70-110); Potassium 4.1 mmol/L (3.5-5.5); Sodium 140 mmol/L (135-145); VLDL Calculation 17.98 mg/dL (5.00-40.00)
[2024-07-17 11:36] LABS: ALT 20 U/L (8-44); AST 16 U/L (13-35)
== END | disposition home or self-care (01) ==
LOC: LABWHC1 08:39
PROVIDERS: ATTEND Internal Medicine
DX: E66.9 Obesity, unspecified (principal); K76.0 Fatty (change of) liver, not elsewhere classified; E78.5 Hyperlipidemia, unspecified
CPT/HCPCS: 36415; 80048; 80061; 84450; 84460

== ENCOUNTER 2024-07-26 07:53 | Emergency (ER) | payer OTHER ==
[2024-07-26 08:05] VITALS: TEMP 98.4
[2024-07-26] MEDS: HYDROmorphone 0.5 MG/0.5 ML SYRINGE IVP STA ×2 (09:13→11:19)
[2024-07-26] MEDS: SODIUM CHLORIDE 0.9% 1,000 ML IV ONE (09:13)
[2024-07-26 09:15] LABS: Basophils % (A) 0 %; Eosinophils # (A) 0.1 k/uL (0-0.7); Eosinophils % (A) 1 %; HCT 39.2 % (34.0-46.0); HGB 12.9 gm/dL (11.4-16.0); Lymphocytes % (A) 17 %; MCH 28.9 pg (25.0-35.0); MCHC 32.8 g/dL (31.0-37.0); MCV 88.3 fL (80.0-100.0); Mean Platelet Volume 6.9; Monocytes # (A) 0.5 k/uL (0-1.0); Monocytes % (A) 5 %; Neutrophils # (A) 8.7 k/uL (1.3-7.7); Neutrophils % (A) 76 %; Platelet Count 386 k/uL (150-450); RBC 4.45 m/uL (3.80-5.40); RDW 13.7 % (11.5-15.5); WBC 11.4 k/uL (3.8-10.6)
--- NOTE | 2024-07-26 09:25 | ED ---
General Adult HPI - General Chief complaint: Vaginal Bleeding Stated complaint: Abd pain, miscarriage Time Seen by Provider: 07/26/24 08:18 Source: patient, RN notes reviewed Mode of arrival: ambulatory Limitations: no limitations - History of Present Illness Initial comments: 38-year-old female presents emergency department chief complaint of vaginal bl eeding in . Patient states that she saw transit mixer operator/GYN last week and was told that she was going to have a miscarriage because of development on ultrasound based on last menstrual cycle. Patient states she was post have confirmatory ultrasound and follow-up with [facility] FAMILY SERVICE AIDE today. Patient states she just had some increase in bleeding discomfort which prior to the emergency department. Patient denies any fevers or chills no chest pains. Patient states she is constipated which not helping of her pain at this time. Says she has had a prior D&C for missed with twins. Patient states she also had prior section and history of gestational diabetes and hyperemesis gravidarum - Related Data Home Medications Medication Instructions Recorded Confirmed Albuterol Sulfate [Proair Hfa] 2 puff INHALATION RT-QID PRN 11/04/22 11/04/22 Budesonide/Formoterol Fumarate 1 puff INHALATION RT-BID PRN 11/04/22 11/04/22 [Symbicort 80-4.5 Mcg Inhaler] Previous Rx's Medication Instructions Recorded HYDROcodone/APAP 5-325MG [[place] 1 tab PO Q6HR PRN 3 Days #6 tab 11/08/22 5-325] metroNIDAZOLE [Flagyl] 500 mg PO TID #15 tab 11/08/22 Cephalexin [Keflex] 500 mg PO Q8HR 5 Days #15 cap 07/01/24 Ondansetron Odt [Zofran Odt] 4 mg PO Q8HR PRN #30 tab 07/01/24 HYDROcodone/APAP 5-325MG [[place] 5] 1 each PO Q6HR PRN #12 tab 07/26/24 Allergies Allergy/AdvReac Type Severity Reaction Status Date / Time codeine Allergy Rash/Hives Verified 07/26/24 08:05 Penicillins Allergy Rash/Hives Verified 07/26/24 08:05 Review of Systems ROS Statement: Those systems with pertinent positive or pertinent negative responses have been documented in the HPI. ROS Other: All systems not noted in ROS Statement are negative. Past Medical History Past Medical History: Asthma, GERD/Reflux Additional Past Medical History / Comment(s): Hx Gestational Diabetes. History of Any Multi-Drug Resistant Organisms: None Reported Past Surgical History: Breast Surgery, Section, Orthopedic Surgery, Tonsillectomy Additional Past Surgical History / Comment(s): CYST REMOVED RT WRIST, LT HEEL SPUR REMOVED, BREAST REDUCTION, CTR-RT HAND, D&C. Past Anesthesia/Blood Transfusion Reactions: Motion Sickness, Postoperative Nausea & Vomiting (PONV) Past Psychological History: Depression Smoking Status: Never smoker Past Alcohol Use History: Rare Past Drug Use History: None Reported - Past Family History Mother Family Medical History: No Reported History General Exam Limitations: no limitations General appearance: alert, in no apparent distress Head exam: Present: atraumatic, normocephalic, normal inspection Neck exam: Present: normal inspection. Absent: tenderness, meningismus, lymphadenopathy Respiratory exam: Present: normal lung sounds bilaterally. Absent: respiratory distress, wheezes, rales, rhonchi, stridor Cardiovascular Exam: Present: regular rate, normal rhythm, normal heart sounds. Absent: systolic murmur, diastolic murmur, rubs, gallop, clicks GI/Abdominal exam: Present: soft, tenderness, normal bowel sounds. Absent: distended, guarding, rebound, rigid Back exam: Absent: CVA tenderness (R), CVA tenderness (L) Neurological exam: Present: alert, oriented X3 Course Vital Signs 07/26/24 08:03 Temperature 98.4 F Pulse Rate 78 Respiratory 18 Rate Blood Pressure 136/78 O2 Sat by Pulse 100 Oximetry Medical Decision Making - Medical Decision Making Was pt. sent in by a medical professional or institution (, PA, RECLAMATION SUPERVISOR, urgent care, hospital, or intermediate...) When possible be specific @ -No Did you speak to anyone other than the patient for history (EMS, parent, family, police, friend...)? What history was obtained from this source @ -No Did you review nursing and triage notes (agree or disagree)? Why? @ -I reviewed and agree with nursing and triage notes Were old charts reviewed (outside hosp., previous admission, EMS record, old EKG, old radiological studies, urgent care reports/EKG's, intermediate records)? Report findings @ -No old charts were reviewed Differential Diagnosis (chest pain, altered mental status, abdominal pain women, abdominal pain men, vaginal bleeding, weakness, fever, dyspnea, syncope, headache, dizziness, GI bleed, back pain, seizure, CVA, palpatations, mental health, musculoskeletal)? @ -Differential Vaginal Bleeding: Spontaneous , threatened , molar , ectopic , bloody show, incompetent cervix, abruptioplacenta, placenta previa, uterine rupture, dysfunctional uterine bleeding, hemorrhage, uterine fib roids, this is not meant to be an all-inclusive list. EKG interpreted by me (3pts min.). @ -None X-rays interpreted by me (1pt min.). @ -None done CT interpreted by me (1pt min.). @ -None done U/S interpreted by me (1pt. min.). @ -Ultrasound transvaginal OB showing evidence of active miscarriage, e ndometrial products What testing was considered but not performed or refused? (CT, X-rays, U/S, labs )? Why? @ -None What meds were considered but not given or refused? Why? @ -None Did you discuss the management of the patient with other professionals (professionals i.e. , PA, RECLAMATION SUPERVISOR, lab, RT, psych nurse, manager social, supervisor production, teacher, district resource officer, case monitor)? Give summary @ -No Was smoking cessation discussed for >3mins.? @ -No Was critical care preformed (if so, how long)? @ -No Were there social determinants of health that impacted care today? How? (Homelessness, low income, unemployed, alcoholism, drug addiction, transportation, low edu. Level, literacy, decrease access to med. care, penitentiary, rehab)? @ -No Was there de-escalation of care discussed even if they declined (Discuss DNR or withdrawal of care, Hospice)? DNR status @ -No What co-morbidities impacted this encounter? (DM, HTN, Smoking, COPD, CAD, Cancer, CVA, ARF, Chemo, Hep., AIDS, mental health diagnosis, sleep apnea, morbid obesity)? @ -None Was patient admitted / discharged? Hospital course, mention meds given and route, prescriptions, significant lab abnormalities, going to OR and other pertinent info. @ -Discharge patient is having current miscarriage patient's pain is improved she has a follow-up appointment in 4 hours with FAMILY SERVICE AIDE will be discharged in stable condition Undiagnosed new problem with uncertain prognosis? @ -No Drug Therapy requiring intensive monitoring for toxicity (Heparin, Nitro, Insuli n, Cardizem)? @ -No Were any procedures done? @ -No Diagnosis/symptom? @ -Miscarriage Acute, or Chronic, or Acute on Chronic? @ -Acute Uncomplicated (without systemic symptoms) or Complicated (systemic symptoms)? @ -Complicated Side effects of treatment? @ -No Exacerbation, Progression, or Severe Exacerbation? @ -No Poses a threat to life or bodily function? How? (Chest pain, USA, PR, pneumonia, PE, COPD, DKA, ARF, appy, cholecystitis, CVA, Diverticulitis, Homicidal, Suicidal, threat to staff... and all critical care pts) @ -No - Lab Data Result diagrams: 07/26/24 09:03 07/26/24 09:03 Lab Results 07/26/24 07/26/24 07/26/24 Range/Units 09:03 09:03 09:12 WBC 11.4 H (3.8-10.6) k/uL RBC 4.45 (3.80-5.40) m/uL Hgb 12.9 (11.4-16.0) gm/dL Hct 39.2 (34.0-46.0) % MCV 88.3 (80.0-100.0) fL MCH 28.9 (25.0-35.0) pg MCHC 32.8 (31.0-37.0) g/dL RDW 13.7 (11.5-15.5) % Plt Count 386 (150-450) k/uL MPV 6.9 Neutrophils % 76 % Lymphocytes % 17 % Monocytes % 5 % Eosinophils % 1 % Basophils % 0 % Neutrophils # 8.7 H (1.3-7.7) k/uL Lymphocytes # 2.0 (1.0-4.8) k/uL Monocytes # 0.5 (0-1.0) k/uL Eosinophils # 0.1 (0-0.7) k/uL Basophils # 0.0 (0-0.2) k/uL Sodium 136 L (137-145) mmol/L Potassium 4.0 (3.5-5.1) mmol/L Chloride 105 (98-107) mmol/L Carbon Dioxide 25 (22-30) mmol/L Anion Gap 6 mmol/L BUN 9 (7-17) mg/dL Creatinine 0.73 (0.52-1.04) mg/dL Est GFR (CKD-EPI)AfAm >90 (>60 ml/min/1.73 sqM) Est GFR (CKD-EPI)NonAf >90 (>60 ml/min/1.73 sqM) Glucose 113 H (74-99) mg/dL Calcium 9.5 (8.4-10.2) mg/dL Total Bilirubin 1.2 (0.2-1.3) mg/dL AST 19 (14-36) U/L ALT 19 (4-34) U/L Alkaline Phosphatase 76 (38-126) U/L Total Protein 6.4 (6.3-8.2) g/dL Albumin 3.9 (3.5-5.0) g/dL HCG, Quant 948.7 mIU/mL Urine Color Dark Red Urine Appearance Turbid H (Clear) Urine pH 5.5 (5.0-8.0) Ur Specific [place] 1.031 (1.001-1.035) Urine Protein 2+ H (Negative) Urine Glucose (UA) Negative (Negative) Urine Ketones Negative (Negative) Urine Blood Large H (Negative) Urine Nitrite Negative (Negative) Urine Bilirubin Negative (Negative) Urine Urobilinogen <2.0 (<2.0) mg/dL Ur Leukocyte Esterase Small H (Negative) Urine RBC >182 H (0-5) /hpf Urine Bacteria Rare H (None) /hpf Urine Mucus Few H (None) /hpf Disposition Clinical Impression: Miscarriage Disposition: HOME SELF-CARE Condition: Stable Instructions (If sedation given, give patient instructions): Miscarriage (ED) Additional Instructions: Please return to the Emergency Department if symptoms worsen or any other concerns. Prescriptions: HYDROcodone/APAP 5-325MG [[place] 5] 1 each PO Q6HR PRN #12 tab PRN Reason: Pain Is patient prescribed a controlled substance at d/c from ED?: No Referrals: Erasto Chaidez MD [Primary Care Provider] - 1-2 days Time of Disposition: 10:37
[2024-07-26 09:33] LABS: Appearance,Urine Turbid (Clear); Bacteria,Urine Rare /hpf; Bilirubin,Urine Negative (Negative); Blood,Urine Large (Negative); Color,Urine Dark Red; Glucose,Urine (UA) Negative (Negative); Ketones,Urine Negative (Negative); Leukocyte Esterase,Urine Small (Negative); Mucus,Urine Few /hpf; Nitrite,Urine Negative (Negative); PH, Urine 5.5 (5.0-8.0); Protein,Urine 2+ (Negative); RBC,Urine >182 /hpf (0-5); Urobilinogen,Urine <2.0 mg/dL (<2.0)
[2024-07-26 09:38] LABS: Specific Gravity,Urine 1.031 (1.001-1.035)
[2024-07-26 09:55] LABS: ALT 19 U/L (4-34); AST 19 U/L (14-36); African American GFR (CKD) >90 (>60 ml/min/1.73 sqM); Albumin 3.9 g/dL (3.5-5.0); Alkaline Phosphatase 76 U/L (38-126); Anion Gap 6 mmol/L; Blood Urea Nitrogen 9 mg/dL (7-17); Calcium 9.5 mg/dL (8.4-10.2); Carbon Dioxide 25 mmol/L (22-30); Chloride 105 mmol/L (98-107); Glucose 113 mg/dL (74-99); Non-African American GFR(CKD) >90 (>60 ml/min/1.73 sqM); Sodium 136 mmol/L (137-145); Total Bilirubin 1.2 mg/dL (0.2-1.3); Total Protein 6.4 g/dL (6.3-8.2)
[2024-07-26 10:06] LABS: HCG,Quantitative Serum 948.7 mIU/mL
--- NOTE | 2024-07-26 10:20 | US ---
EXAMINATION TYPE: Transabdominal DATE OF EXAM: 07/26/2024 10:02 AM COMPARISON: NONE CLINICAL INDICATION: Female, 38 years old with history of pain/bleeding; miscarriage in process TECHNIQUE: Transabdominal (TA) with grayscale and color Doppler imaging including first trimester pre gnancy. FINDINGS: EXAM MEASUREMENTS: GESTATIONAL AGE / DATING Physician Established: Not yet established Dates by First Scan: (9 weeks/1 days) EDC: 02/27/25 Dates by Current Scan for: No IUP seen at this time MATERNAL ANATOMY Uterus: 12.5x6.1x6.2 Right Ovary: 2.8x1.8x1.8 Left Ovary: 2.1x2.2x2.7 Post CDS / Adnexa: wnl Presence of free fluid: wnl Presence of corpus luteal cyst: no Presence of subchorionic bleed: no GESTATION / SURVEY CRL: no IUP MSD: no IUP Heart Rate: no IUP Rhythm: no IUP IUP: no IUP Date of LMP: 05/10/24 Beta HcG (if available): Not available at this time miscarriage in process, no IUP seen at this time, blood product and heterogenous areas in endometrium IMPRESSION: No evidence of intrauterine gestational sac, correlate with B-hCG. If positive, this could represent early , ectopic or spontaneous . Follow up pelvic ultrasound in 5-7 days a nd serial beta hCG studies are recommended. [facility], , 07/26/2024 10:18 AM
[2024-07-26] MEDS: KETOROLAC 15 MG/ML 1 ML VIAL IVP STA (11:22)
[2024-07-26 11:43] VITALS: BP 100/80; PULSE 79; RESP 16
== END 2024-07-26 11:43 | disposition home or self-care (01) ==
LOC: EC 07:53
CPT/HCPCS: 36415; 76801; 80053; 81001; 84702; 85025; 96361; 96374; 96375; 96376; 99284

== ENCOUNTER → 2024-09-01 | Outpatient (CLI) | payer OTHER ==
[2024-09-01 16:11] LABS: ALT 26 U/L (8-44); AST 25 U/L (13-35); BUN/Creat Ratio 12.25 Ratio (12.00-20.00); Blood Urea Nitrogen 9.8 mg/dL (9.0-27.0); Calcium 9.3 mg/dL (8.7-10.3); Carbon Dioxide 23.9 mmol/L (21.6-31.8); Chloride 104 mmol/L (96-109); Chol/HDL Ratio 4.15 Ratio; Glucose 88 mg/dL (70-110); LDL Cholesterol,Calculated 111.2 mg/dL (0.0-131.0); Potassium 4.1 mmol/L (3.5-5.5); Sodium 140 mmol/L (135-145)
== END | disposition home or self-care (01) ==
LOC: LABWHC1 08:48
PROVIDERS: ATTEND Internal Medicine
DX: I10 Essential (primary) hypertension (principal); K76.0 Fatty (change of) liver, not elsewhere classified; E87.6 Hypokalemia; E66.01 Morbid (severe) obesity due to excess calories
CPT/HCPCS: 36415; 80048; 80061; 84450; 84460

== ENCOUNTER → 2024-09-04 | Outpatient (CLI) | payer OTHER ==
--- NOTE | 2024-09-04 14:17 | XR ---
EXAMINATION TYPE: XR elbow complete LT DATE OF EXAM: 09/04/2024 COMPARISON: NONE HISTORY: 38-year-old female M25.522, left elbow pain TECHNIQUE: 3 views FINDINGS: No joint effusion. No acute fracture, subluxation, dislocation. IMPRESSION: No acute osseous abnormality seen. [facility], Workstation: [facility], 09/04/2024 2:15 PM
== END | disposition home or self-care (01) ==
LOC: RADXRMAIN 13:23
PROVIDERS: ATTEND Internal Medicine
DX: M25.522 Pain in left elbow (principal)

== ENCOUNTER → 2024-11-29 | Outpatient (CLI) | payer OTHER ==
[2024-11-29 11:25] LABS: Influenza A Not Detected (Not Detectd); Influenza B Not Detected (Not Detectd); RSV Not Detected (Not Detectd)
[2024-11-29 15:11] LABS: Basophils # (A) 0.04 X 10*3/uL (0.00-0.10); Basophils % (A) 0.4 %; Eosinophils # (A) 0.17 X 10*3/uL (0.04-0.35); Eosinophils % (A) 1.8 %; HGB 13.4 g/dL (12.0-15.0); Lymphocytes # (A) 2.45 X 10*3/uL (0.90-5.00); MCH 26.2 pg (27.0-32.0); MCHC 31.9 g/dL (32.0-37.0); MCV 82.2 FL (80.0-97.0); Mean Platelet Volume 10.1 FL (9.5-12.2); Monocytes # (A) 0.42 X 10*3/uL (0.20-1.00); Monocytes % (A) 4.5 %; NRBC Per 100 WBC 0 X 10*3/uL (0.00-0.01); Neutrophils # (A) 6.29 X 10*3/uL (1.80-7.70); Neutrophils % (A) 66.9 %; Platelet Count 404 X 10*3/uL (140-440); RBC 5.11 X 10*6/uL (4.10-5.20); RDW 14.7 % (11.5-14.5); WBC 9.41 X 10*3/uL (4.50-10.00)
== END | disposition home or self-care (01) ==
LOC: LABWHC1 10:37
PROVIDERS: ATTEND Internal Medicine
DX: J12.9 Viral pneumonia, unspecified (principal); J06.9 Acute upper respiratory infection, unspecified
CPT/HCPCS: 36415; 85025; 87636

== ENCOUNTER → 2025-01-26 | Outpatient (CLI) | payer OTHER ==
[2025-01-26 15:09] LABS: Basophils # (A) 0.06 X 10*3/uL (0.00-0.10); Basophils % (A) 0.7 %; Eosinophils # (A) 0.16 X 10*3/uL (0.04-0.35); Eosinophils % (A) 1.9 %; HCT 40.3 % (37.2-46.3); HGB 13.2 g/dL (12.0-15.0); Lymphocytes # (A) 1.71 X 10*3/uL (0.90-5.00); Lymphocytes % (A) 20.5 %; MCH 27.6 pg (27.0-32.0); MCHC 32.8 g/dL (32.0-37.0); MCV 84.3 FL (80.0-97.0); Mean Platelet Volume 10.3 FL (9.5-12.2); Monocytes # (A) 0.44 X 10*3/uL (0.20-1.00); Monocytes % (A) 5.3 %; NRBC Per 100 WBC 0 X 10*3/uL (0.00-0.01); Neutrophils # (A) 5.96 X 10*3/uL (1.80-7.70); Neutrophils % (A) 71.4 %; Platelet Count 339 X 10*3/uL (140-440); RBC 4.78 X 10*6/uL (4.10-5.20); RDW 14.4 % (11.5-14.5); WBC 8.35 X 10*3/uL (4.50-10.00)
[2025-01-26 15:49] LABS: Erythrocyte Sedimentation Rate 13 mm/Hr (0-20)
[2025-01-26 18:34] LABS: % Iron Saturation 14.67 (12.00-45.00); Creatine Kinase 98 U/L (26-186); Iron 55 UG/DL (50-170); Magnesium 1.1 mg/dL (1.5-2.4); Total Iron Binding Capacity 375 UG/DL (228-460); Uric Acid 3.8 mg/dL (2.9-7.7); VLDL Calculation 15.62 mg/dL (5.00-40.00)
[2025-01-26 18:40] LABS: ALT 16 U/L (8-44); AST 19 U/L (13-35); Albumin/Globulin Ratio 1.74 Ratio (1.60-3.17); Alkaline Phosphatase 101 U/L (41-126); BUN/Creat Ratio 9.38 Ratio (12.00-20.00); Blood Urea Nitrogen 7.5 mg/dL (9.0-27.0); Calcium 8.7 mg/dL (8.7-10.3); Carbon Dioxide 24.3 mmol/L (21.6-31.8); Chloride 102 mmol/L (96-109); Chol/HDL Ratio 4.11 Ratio; Ferritin 36.6 ng/mL (10.0-291.0); Globulin 2.3 g/dL (1.6-3.3); Glucose 91 mg/dL (70-110); LDL Cholesterol,Calculated 99.4 mg/dL (0.0-131.0); Potassium 3.9 mmol/L (3.5-5.5); Sodium 140 mmol/L (135-145); Total Bilirubin 0.8 mg/dL (0.3-1.2); Total Protein 6.3 g/dL (6.2-8.2)
== END | disposition home or self-care (01) ==
LOC: LABWHC1 08:18
PROVIDERS: ATTEND Internal Medicine
DX: Z00.00 Encounter for general adult medical examination without abnormal findings (principal); Z51.81 Encounter for therapeutic drug level monitoring; I10 Essential (primary) hypertension; D64.9 Anemia, unspecified; M10.9 Gout, unspecified; M81.0 Age-related osteoporosis without current pathological fracture; E78.5 Hyperlipidemia, unspecified; E55.9 Vitamin D deficiency, unspecified; Z79.899 Other long term (current) drug therapy
CPT/HCPCS: 36415; 80053; 80061; 82306; 82550; 82728; 83540; 83550; 83735; 84100; 84443; 84550; 85025; 85652; 86140

== ENCOUNTER → 2025-02-26 | Outpatient (CLI) | payer OTHER | END | disposition home or self-care (01) | LOC: LABWHC1 10:36 | PROVIDERS: ATTEND Internal Medicine | DX: N91.2 Amenorrhea, unspecified (principal) | CPT/HCPCS: 36415; 84702 ==

== ENCOUNTER → 2025-02-28 | Outpatient (CLI) | payer OTHER | END | disposition home or self-care (01) | LOC: LABWHC1 13:13 | PROVIDERS: ATTEND Internal Medicine | DX: N91.2 Amenorrhea, unspecified (principal) | CPT/HCPCS: 36415; 84702 ==

== ENCOUNTER → 2025-04-11 | Outpatient (CLI) | payer OTHER ==
[2025-04-11 15:47] LABS: Magnesium 1.4 mg/dL (1.5-2.4)
== END | disposition home or self-care (01) ==
LOC: LABWHC1 08:54
PROVIDERS: ATTEND Internal Medicine
DX: E66.9 Obesity, unspecified (principal); E61.2 Magnesium deficiency; E55.9 Vitamin D deficiency, unspecified
CPT/HCPCS: 36415; 82306; 83735

== ENCOUNTER 2025-04-30 18:01 | Emergency (ER) | payer OTHER ==
[2025-04-30 18:07] VITALS: TEMP 97.9
--- NOTE | 2025-04-30 19:44 | ED ---
General Adult HPI - General Source: patient Mode of arrival: ambulatory Limitations: no limitations <Rei Angel - Last Filed: 04/30/25 20:49> <Jeovany Alejandre - Last Filed: 05/08/25 06:41> - General Chief complaint: Urogenital Stated complaint: Constipation(13 weeks preg) Time Seen by Provider: 04/30/25 19:15 - History of Present Illness Initial comments: Dictation was produced using [employer] dictation software. please excuse any grammatical, word or spelling errors. Chief Complaint: 39-year-old female with UTI constipation History of Present Illness: Patient is 39-year-old female states that she is 30 weeks . Patient that she think she might have a UTI due to urinary symptoms. Patient also states that she is constipated because she has not had a bowel movement in 2 weeks. Patient has history of constipation. She has been forgetting to take her constipation medications. Patient does report associated rectal fullness The ROS documented in this emergency department record has been reviewed and confirmed by me. Those systems with pertinent positive or negative responses rodas ve been documented in the HPI. All other systems are other negative and/or noncontributory. (Rei Angel) - Related Data Home Medications Medication Instructions Recorded Confirmed Albuterol Sulfate [Proair Hfa] 2 puff INHALATION RT-QID PRN 11/04/22 11/04/22 Budesonide/Formoterol Fumarate 1 puff INHALATION RT-BID PRN 11/04/22 11/04/22 [Symbicort 80-4.5 Mcg Inhaler] Previous Rx's Medication Instructions Recorded HYDROcodone/APAP 5-325MG [[place] 1 tab PO Q6HR PRN 3 Days #6 tab 11/08/22 5-325] metroNIDAZOLE [Flagyl] 500 mg PO TID #15 tab 11/08/22 Cephalexin [Keflex] 500 mg PO Q8HR 5 Days #15 cap 07/01/24 Ondansetron Odt [Zofran Odt] 4 mg PO Q8HR PRN #30 tab 07/01/24 HYDROcodone/APAP 5-325MG [[place] 5] 1 each PO Q6HR PRN #12 tab 07/26/24 Allergies Allergy/AdvReac Type Severity Reaction Status Date / Time codeine Allergy Rash/Hives Verified 03/09/25 12:35 Penicillins Allergy Rash/Hives Verified 03/09/25 12:35 Review of Systems ROS Other: All systems not noted in ROS Statement are negative. <Rei Angel - Last Filed: 04/30/25 20:49> ROS Other: All systems not noted in ROS Statement are negative. <Jeovany Alejandre - Last Filed: 05/08/25 06:41> ROS Statement: Those systems with pertinent positive or pertinent negative responses have been documented in the HPI. Past Medical History Past Medical History: Asthma, GERD/Reflux Additional Past Medical History / Comment(s): Hx Gestational Diabetes. History of Any Multi-Drug Resistant Organisms: None Reported Past Surgical History: Breast Surgery, Section, Orthopedic Surgery, Tonsillectomy Additional Past Surgical History / Comment(s): CYST REMOVED RT WRIST, LT HEEL SPUR REMOVED, BREAST REDUCTION, CTR-RT HAND, D&C. Past Anesthesia/Blood Transfusion Reactions: Motion Sickness, Postoperative Nausea & Vomiting (PONV) Past Psychological History: Depression Smoking Status: Never smoker Past Alcohol Use History: Rare Past Drug Use History: None Reported - Past Family History Mother Family Medical History: No Reported History <Rei Angel - Last Filed: 04/30/25 20:49> General Exam Limitations: no limitations <Rei Angel - Last Filed: 04/30/25 20:49> - General Exam Comments Initial Comments: PHYSICAL EXAM: General Impression: Alert and oriented x3, not in acute distress HEENT: Normocephalic atraumatic, extra-ocular movements intact, pupils equal and reactive to light bilaterally, mucous membranes moist. Cardiovascular: Heart regular rate and rhythm Chest: Able to complete full sentences, no retractions, no tachypnea Abdomen: abdomen soft, non-tender, non-distended, no organomegaly Musculoskeletal: Pulses present and equal in all extremities, no peripheral ed casimiro Motor: no focal deficits noted Neurological: CN II-XII grossly intact, no focal motor or sensory deficits noted Skin: Intact with no visualized rashes Psych: Normal affect and mood (Rei Angel) Course Vital Signs 04/30/25 04/30/25 04/30/25 18:03 19:31 22:30 Temperature 97.9 F Pulse Rate 105 H 89 87 Respiratory 18 17 18 Rate Blood Pressure 122/85 115/79 123/76 O2 Sat by Pulse 98 99 98 Oximetry 05/01/25 05/01/25 00:14 02:59 Temperature Pulse Rate 86 74 Respiratory 17 16 Rate Blood Pressure 104/60 110/67 O2 Sat by Pulse 99 98 Oximetry Medical Decision Making <StanleyRei - Last Filed: 04/30/25 20:49> - Lab Data Result diagrams: 04/30/25 20:38 04/30/25 20:38 <Jeovany Alejandre - Last Filed: 05/08/25 06:41> - Medical Decision Making Was pt. sent in by a medical professional or institution (, PA, COMMERCIAL DESIGNER, urgent care, hospital, or long term...) When possible be specific @ -[No] Did you speak to anyone other than the patient for history (EMS, parent, family, police, friend...)? What history was obtained from this source @ -[No] Did you review nursing and triage notes (agree or disagree)? Why? @ -[I reviewed and agree with nursing and triage notes] Were old charts reviewed (outside hosp., previous admission, EMS record, old EKG, old radiological studies, urgent care reports/EKG's, long term records)? Report findings @ -[No old charts were reviewed] Differential Diagnosis (chest pain, altered mental status, abdominal pain women, abdominal pain men, vaginal bleeding, musculoskeletal, weakness, fever, dyspnea, syncope, headache, dizziness, GI bleed, back pain, seizure, CVA, palpatations, mental health)? @ -Differential Abdominal Pain Women: Appendicitis, Cholecystitis, diverticulosis, ischemic bowel, pancreatitis, hepatitis, UTI, gastroenteritis, AAA, incarcerated hernia, bowel obstruction, constipation, inflammatory bowel, hepatitis, peptic ulcer disease, splenic infarction, perforated viscus, vulvitis, ovarian torsion, PID, kidney stone, placenta abruption, this is not meant to be an all-inclusive list EKG interpreted by me (3pts min.). @ -[None done] X-rays interpreted by me (1pt min.). @ -[None done] CT interpreted by me (1pt min.). @ -[None done] U/S interpreted by me (1pt. min.). @ -Ultrasound shows uncomplicated intrauterine What testing was considered but not performed or refused? (CT, X-rays, U/S, labs)? Why? @ -[None] What meds were considered but not given or refused? Why? @ -[None] Was smoking cessation discussed for >3mins.? @ -[No] Were there social determinants of health that impacted care today? How? (Homelessness, low income, unemployed, alcoholism, drug addiction, transportation, low edu. Level, literacy, decrease access to med. care, correction, re hab)? @ -[No] Was there de-escalation of care discussed even if they declined (Discuss DNR or withdrawal of care, Hospice)? DNR status @ -[No] What co-morbidities impacted this encounter? (DM, HTN, Smoking, COPD, CAD, Cancer, CVA, ARF, Chemo, Hep., AIDS, mental health diagnosis, sleep apnea, morbi d obesity)? @ - Was patient admitted / discharged? Hospital course, mention meds given and route, prescriptions, significant lab abnormalities, going to OR and other pertinent info. @ -39-year-old P female with 13 weeks presents to the ER for constipation and what she describes is concentrated urine secondary to dehydration. Ultrasound is unremarkable. Vital signs stable. Patient ordered for tapwater enema. Pending labs. Case discussed with Dr. Alejandre at 9:00 PM for signout. (Rei Angel) Was patient admitted / discharged? Hospital course, mention meds given and route, prescriptions, significant lab abnormalities, going to OR and other pertinent info. @ -[I received this patient as a signout pending the results of the patient's enema. Nursing staff reported to me that the patient did have significant bowel movement, was feeling better and wanted to go home. The patient discharged. Undiagnosed new problem with uncertain prognosis? @ -[No] Drug Therapy requiring intensive monitoring for toxicity (Heparin, Nitro, In sulin, Cardizem)? @ -[No] Were any procedures done? @ -[No] Diagnosis/symptom? @ -[Acute abdominal pain due to constipation. Acute, or Chronic, or Acute on Chronic? @ -[Acute Uncomplicated (without systemic symptoms) or Complicated (systemic symptoms)? @ -[Uncomplicated Side effects of treatment? @ -[No] Exacerbation, Progression, or Severe Exacerbation? @ -[No] Poses a threat to life or bodily function? How? (Chest pain, USA, MS, pneumonia, PE, COPD, DKA, ARF, appy, cholecystitis, CVA, Diverticulitis, Homicidal, Suicidal, threat to staff... and all critical care pts) @ -[No] (Jeovany Alejandre) - Lab Data Lab Results 04/30/25 04/30/25 05/01/25 Range/Units 20:38 20:38 01:56 WBC 10.44 H (4.50-10.00) 10*3/uL RBC 4.71 (4.10-5.20) 10*6/uL Hgb 13.5 (12.0-15.0) g/dL Hct 38.8 (37.2-46.3) % MCV 82.4 (80.0-97.0) fL MCH 28.7 (27.0-32.0) pg MCHC 34.8 (32.0-37.0) g/dL Plt Count 300 (140-440) 10*3/uL MPV 9.2 L (9.5-12.2) fL Immature Gran % (Auto) 0.3 % Neutrophils % 76.6 % Lymphocytes % 17.2 % Monocytes % 4.7 % Eosinophils % 0.9 % Basophils % 0.3 % Immature Gran # 0.03 (0.00-0.04) 10*3/uL Neutrophils # 8.00 H (1.80-7.70) 10*3/uL Lymphocytes # 1.80 (0.90-5.00) 10*3/uL Monocytes # 0.49 (0.20-1.00) 10*3/uL Eosinophils # 0.09 (0.04-0.35) 10*3/uL Basophils # 0.03 (0.00-0.10) 10*3/uL Sodium 135 L (137-145) mmol/L Potassium 3.7 (3.5-5.1) mmol/L Chloride 104 (98-107) mmol/L Carbon Dioxide 20 L (22-30) mmol/L Anion Gap 11 mmol/L BUN 5 L (7-17) mg/dL Creatinine 0.55 (0.52-1.04) mg/dL Est GFR (CKD-EPI)AfAm >90 (>60 ml/min/1.73 sqM) Est GFR (CKD-EPI)NonAf >90 (>60 ml/min/1.73 sqM) Glucose 91 (74-99) mg/dL Calcium 9.7 (8.4-10.2) mg/dL Urine Color Yellow Urine Appearance Clear (Clear) Urine pH 6.0 (5.0-8.0) Ur Specific [place] 1.021 (1.001-1.035) Urine Protein Trace H (Negative) Urine Glucose (UA) Negative (Negative) Urine Ketones 1+ H (Negative) Urine Blood Negative (Negative) Urine Nitrite Negative (Negative) Urine Bilirubin Negative (Negative) Urine Urobilinogen 4.0 (<2.0) mg/dL Ur Leukocyte Esterase Negative (Negative) Disposition <Rei Angel - Last Filed: 04/30/25 20:49> Is patient prescribed a controlled substance at d/c from ED?: No <Jeovany Alejandre - Last Filed: 05/08/25 06:41> Clinical Impression: Constipation Disposition: HOME SELF-CARE Condition: Good Instructions (If sedation given, give patient instructions): Constipation (ED) Referrals: Erasto Chaidez MD [Primary Care Provider] - 1-2 days
--- NOTE | 2025-04-30 20:14 | US ---
EXAMINATION TYPE: Transabdominal DATE OF EXAM: 04/30/2025 8:04 PM COMPARISON: Ultrasound OB 03/09/2025 CLINICAL INDICATION: Female, 39 years old with history of pelvic pain; constipation. no pelvic pain p er patient. no other symptoms TECHNIQUE: Transabdominal (TA) with grayscale and color Doppler imaging including first trimester pre gnancy. FINDINGS: EXAM MEASUREMENTS: GESTATIONAL AGE / DATING limited due to body habitus Physician Established: (13 weeks/3 days) EDC: 11/02/2025 Dates by First Scan: could not date by previous study at this facility Dates by Current Scan for: (13 weeks/3 days) EDC: 11/02/2025 MATERNAL ANATOMY Uterus: 13.1 x 7.5 x 10.2cm Right Ovary: 2.5 x 2.1 x 2.3cm Left Ovary: obscured by gas Post CDS / Adnexa: wnl as best seen Presence of free fluid: not seen Presence of corpus luteal cyst: not seen Presence of subchorionic bleed: not seen GESTATION / SURVEY CRL: 7.1cm (13 weeks/3 days) Gestational Sac morphology: Normal Yolk Sac (normal less than 6mm): unable to visualize Cardiac Activity/Heart Rate: 132 bpm Rhythm: Normal IUP: Viable IUP Beta HcG (if available): Not available at this time IMPRESSION: Single live intrauterine with calculated ultrasound age of 13 weeks 3 days by crown rump le ngth with an estimated date of delivery of 11/02/2025. [facility], , 04/30/2025 8:11 PM
[2025-04-30] MEDS: SODIUM CHLORIDE 0.9% 1,000 ML IV STA (20:40)
[2025-04-30 20:58] LABS: Basophils # (A) 0.03 10*3/uL (0.00-0.10); Basophils % (A) 0.3 %; Eosinophils # (A) 0.09 10*3/uL (0.04-0.35); Eosinophils % (A) 0.9 %; HCT 38.8 % (37.2-46.3); HGB 13.5 g/dL (12.0-15.0); Lymphocytes # (A) 1.80 10*3/uL (0.90-5.00); Lymphocytes % (A) 17.2 %; MCH 28.7 pg (27.0-32.0); MCHC 34.8 g/dL (32.0-37.0); MCV 82.4 fL (80.0-97.0); Monocytes # (A) 0.49 10*3/uL (0.20-1.00); Monocytes % (A) 4.7 %; Neutrophils # (A) 8.00 10*3/uL (1.80-7.70); Neutrophils % (A) 76.6 %; Platelet Count 300 10*3/uL (140-440); RBC 4.71 10*6/uL (4.10-5.20); RDW 13.7 % (11.5-14.5); WBC 10.44 10*3/uL (4.50-10.00)
[2025-04-30 21:19] LABS: African American GFR (CKD) >90 (>60 ml/min/1.73 sqM); Anion Gap 11 mmol/L; Blood Urea Nitrogen 5 mg/dL (7-17); Calcium 9.7 mg/dL (8.4-10.2); Carbon Dioxide 20 mmol/L (22-30); Chloride 104 mmol/L (98-107); Glucose 91 mg/dL (74-99); Non-African American GFR(CKD) >90 (>60 ml/min/1.73 sqM); Potassium 3.7 mmol/L (3.5-5.1); Sodium 135 mmol/L (137-145)
[2025-05-01 02:37] LABS: Bilirubin,Urine Negative (Negative); Blood,Urine Negative (Negative); Color,Urine Yellow; Glucose,Urine (UA) Negative (Negative); Ketones,Urine 1+ (Negative); Leukocyte Esterase,Urine Negative (Negative); Nitrite,Urine Negative (Negative); PH, Urine 6.0 (5.0-8.0); Protein,Urine Trace (Negative); Specific Gravity,Urine 1.021 (1.001-1.035); Urobilinogen,Urine 4.0 mg/dL (<2.0)
[2025-05-01 03:00] VITALS: BP 110/67; PULSE 74; RESP 16
== END 2025-05-01 03:00 | disposition home or self-care (01) ==
LOC: EC 18:01
DX: O99.613 Diseases of the digestive system complicating pregnancy, third trimester (principal); K59.00 Constipation, unspecified; Z88.5 Allergy status to narcotic agent; Z88.0 Allergy status to penicillin; Z3A.30 30 weeks gestation of pregnancy
CPT/HCPCS: 36415; 76801; 80048; 81003; 85025; 96360; 99284

== ENCOUNTER 2025-05-10 16:26 | Emergency (ER) | payer OTHER ==
[2025-05-10 16:30] VITALS: RESP 18; TEMP 98
--- NOTE | 2025-05-10 17:16 | ED ---
General Adult HPI - General Chief complaint: Nausea/Vomiting/Diarrhea Stated complaint: 15 weeks /NV Time Seen by Provider: 05/10/25 16:43 Source: patient Mode of arrival: ambulatory Limitations: no limitations - History of Present Illness Initial comments: Dictation was produced using [employer] dictation software. please excuse any grammatical, word or spelling errors. Chief Complaint: 39-year-old female presents to the department with nausea v omiting dehydration History of Present Illness: Patient is a 39-year-old female approximately 17 we eks states that she has had a normal so far. She has been dealing with nausea and vomiting since the beginning of her . Denies any abdominal pain or pelvic pain. Patient recently ran out of her antiemetics. The ROS documented in this emergency department record has been reviewed and confirmed by me. Those systems with pertinent positive or negative responses have been documented in the HPI. All other systems are other negative and/or noncontributory. - Related Data Home Medications Medication Instructions Recorded Confirmed Albuterol Sulfate [Proair Hfa] 2 puff INHALATION RT-QID PRN 11/04/22 11/04/22 Budesonide/Formoterol Fumarate 1 puff INHALATION RT-BID PRN 11/04/22 11/04/22 [Symbicort 80-4.5 Mcg Inhaler] Previous Rx's Medication Instructions Recorded HYDROcodone/APAP 5-325MG [[place] 1 tab PO Q6HR PRN 3 Days #6 tab 11/08/22 5-325] metroNIDAZOLE [Flagyl] 500 mg PO TID #15 tab 11/08/22 Cephalexin [Keflex] 500 mg PO Q8HR 5 Days #15 cap 07/01/24 Ondansetron Odt [Zofran Odt] 4 mg PO Q8HR PRN #30 tab 07/01/24 HYDROcodone/APAP 5-325MG [[place] 5] 1 each PO Q6HR PRN #12 tab 07/26/24 Ondansetron Odt [Zofran Odt] 4 mg PO Q8HR PRN #12 tab 05/10/25 Allergies Allergy/AdvReac Type Severity Reaction Status Date / Time codeine Allergy Rash/Hives Verified 05/10/25 16:29 Penicillins Allergy Rash/Hives Verified 05/10/25 16:29 Review of Systems ROS Statement: Those systems with pertinent positive or pertinent negative responses have been documented in the HPI. ROS Other: All systems not noted in ROS Statement are negative. Past Medical History Past Medical History: Asthma, GERD/Reflux Additional Past Medical History / Comment(s): Hx Gestational Diabetes. History of Any Multi-Drug Resistant Organisms: None Reported Past Surgical History: Breast Surgery, Section, Orthopedic Surgery, Tonsillectomy Additional Past Surgical History / Comment(s): CYST REMOVED RT WRIST, LT HEEL SPUR REMOVED, BREAST REDUCTION, CTR-RT HAND, D&C. Past Anesthesia/Blood Transfusion Reactions: Motion Sickness, Postoperative Nausea & Vomiting (PONV) Past Psychological History: Depression Smoking Status: Never smoker Past Alcohol Use History: Rare Past Drug Use History: None Reported - Past Family History Mother Family Medical History: No Reported History General Exam - General Exam Comments Initial Comments: PHYSICAL EXAM: General Impression: Alert and oriented x3, not in acute distress HEENT: Normocephalic atraumatic, extra-ocular movements intact, pupils equal and reactive to light bilaterally, mucous membranes moist. Cardiovascular: Heart regular rate and rhythm Chest: Able to complete full sentences, no retractions, no tachypnea Abdomen: abdomen soft, non-tender, non-distended, no organomegaly Musculoskeletal: Pulses present and equal in all extremities, no peripheral edema Motor: no focal deficits noted Neurological: CN II-XII grossly intact, no focal motor or sensory deficits noted Skin: Intact with no visualized rashes Psych: Normal affect and mood Limitations: no limitations Course Vital Signs 05/10/25 16:27 Temperature 98.0 F Pulse Rate 105 H Respiratory 18 Rate Blood Pressure 115/82 O2 Sat by Pulse 98 Oximetry Medical Decision Making - Medical Decision Making Was pt. sent in by a medical professional or institution (, PA, PIPELINER, urgent care, hospital, or assisted...) When possible be specific @ -No Did you speak to anyone other than the patient for history (EMS, parent, family, police, friend...)? What history was obtained from this source @ -No Did you review nursing and triage notes (agree or disagree)? Why? @ -I reviewed and agree with nursing and triage notes Were old charts reviewed (outside hosp., previous admission, EMS record, old EKG, old radiological studies, urgent care reports/EKG's, assisted records)? Report findings @ -No old charts were reviewed Differential Diagnosis (chest pain, altered mental status, abdominal pain women, abdominal pain men, vaginal bleeding, musculoskeletal, weakness, fever, dyspnea, syncope, headache, dizziness, GI bleed, back pain, seizure, CVA, palpatations, mental health)? @ -Differential Dizziness: Benign paroxysmal positional Vertigo, Meniere's disease, otitis media, acoustic neuroma, vertebrobasilar insufficiency, cerebellar stroke, encephalitis, hypovolemic, arrhythmia, coronary artery syndrome, anemia, this is not meant to be an all-inclusive list EKG interpreted by me (3pts min.). @ -None done X-rays interpreted by me (1pt min.). @ -None done CT interpreted by me (1pt min.). @ -None done U/S interpreted by me (1pt. min.). @ -None done What testing was considered but not performed or refused? (CT, X-rays, U/S, labs)? Why? @ -None What meds were considered but not given or refused? Why? @ -None Was smoking cessation discussed for >3mins.? @ -No Were there social determinants of health that impacted care today? How? (Homelessness, low income, unemployed, alcoholism, drug addiction, tra nsportation, low edu. Level, literacy, decrease access to med. care, half-way, rehab)? @ -No Was there de-escalation of care discussed even if they declined (Discuss DNR or withdrawal of care, Hospice)? DNR status @ -No What co-morbidities impacted this encounter? (DM, HTN, Smoking, COPD, CAD, Cancer, CVA, ARF, Chemo, Hep., AIDS, mental health diagnosis, sleep apnea, morbid obesity)? @ -History of hyperemesis during Was patient admitted / discharged? Hospital course, mention meds given and route, prescriptions, significant lab abnormalities, going to OR and other pertinent info. @ -39-year-old female with nausea and vomiting decreased appetite. Ran out of her antiemetic medications. Vital signs upon arrival are within acceptable limits. Laboratory evaluation is unremarkable. Patient given IV fluids antiemetics with improvement of symptoms. Patient discharged told to follow-up with [facility] patient prescription for antiemetics. Did you discuss the management of the patient with other professionals (professionals i.e. , PA, PIPELINER, lab, RT, psych nurse, social and political studies professor, business technology teacher, teacher, police officer booking, correctional case manager)? Give summary @ -No Was critical care preformed (if so, how long)? @ -No Undiagnosed new problem with uncertain prognosis? @ -No Drug Therapy requiring intensive monitoring for toxicity (Heparin, Nitro, Insulin, Cardizem)? @ -No Were any procedures done? @ -No Diagnosis/symptom? Acute, or Chronic, or Acute on Chronic? Uncomplicated (without systemic symptoms) or Complicated (systemic symptoms)? @ -Nausea vomiting in Side effects of treatment? @ -No Exacerbation, Progression, or Severe Exacerbation? @ -No Poses a threat to life or bodily function? How? (Chest pain, [place], SC, pneumonia, PE, COPD, DKA, ARF, appy, cholecystitis, CVA, Diverticulitis, Homicidal, Suicidal, threat to staff... and all critical care pts) @ -No - Lab Data Result diagrams: 05/10/25 17:29 05/10/25 17:29 Lab Results 05/10/25 05/10/25 05/10/25 Range/Units 17:29 17:29 17:29 WBC 8.00 (4.50-10.00) 10*3/uL RBC 4.68 (4.10-5.20) 10*6/uL Hgb 13.5 (12.0-15.0) g/dL Hct 38.8 (37.2-46.3) % MCV 82.9 (80.0-97.0) fL MCH 28.8 (27.0-32.0) pg MCHC 34.8 (32.0-37.0) g/dL Plt Count 255 (140-440) 10*3/uL MPV 9.0 L (9.5-12.2) fL Immature Gran % (Auto) 0.3 % Neutrophils % 71.2 % Lymphocytes % 21.6 % Monocytes % 5.6 % Eosinophils % 0.9 % Basophils % 0.4 % Immature Gran # 0.02 (0.00-0.04) 10*3/uL Neutrophils # 5.70 (1.80-7.70) 10*3/uL Lymphocytes # 1.73 (0.90-5.00) 10*3/uL Monocytes # 0.45 (0.20-1.00) 10*3/uL Eosinophils # 0.07 (0.04-0.35) 10*3/uL Basophils # 0.03 (0.00-0.10) 10*3/uL Sodium 136 L (137-145) mmol/L Potassium 3.6 (3.5-5.1) mmol/L Chloride 99 (98-107) mmol/L Carbon Dioxide 24 (22-30) mmol/L Anion Gap 13 mmol/L BUN 5 L (7-17) mg/dL Creatinine 0.61 (0.52-1.04) mg/dL Est GFR (CKD-EPI)AfAm >90 (>60 ml/min/1.73 sqM) Est GFR (CKD-EPI)NonAf >90 (>60 ml/min/1.73 sqM) Glucose 82 (74-99) mg/dL Calcium 9.6 (8.4-10.2) mg/dL Magnesium 1.6 (1.6-2.3) mg/dL Total Bilirubin 1.6 H (0.2-1.3) mg/dL AST 23 (14-36) U/L ALT 15 (4-34) U/L Alkaline Phosphatase 65 (38-126) U/L Total Protein 6.7 (6.3-8.2) g/dL Albumin 4.0 (3.5-5.0) g/dL Urine Color Yellow Urine Appearance Clear (Clear) Urine pH 6.0 (5.0-8.0) Ur Specific [place] 1.025 (1.001-1.035) Urine Protein Trace H (Negative) Urine Glucose (UA) Negative (Negative) Urine Ketones 3+ H (Negative) Urine Blood Negative (Negative) Urine Nitrite Negative (Negative) Urine Bilirubin 1+ H (Negative) Urine Urobilinogen 3.0 (<2.0) mg/dL Ur Leukocyte Esterase Negative (Negative) Disposition Clinical Impression: Nausea & vomiting Disposition: HOME SELF-CARE Condition: Fair Instructions (If sedation given, give patient instructions): Acute Nausea and Vomiting (ED) Prescriptions: Ondansetron Odt [Zofran Odt] 4 mg PO Q8HR PRN #12 tab PRN Reason: Nausea Is patient prescribed a controlled substance at d/c from ED?: No Referrals: Luke Monk MD [STAFF PHYSICIAN] - 1-2 days Time of Disposition: 18:50
[2025-05-10] MEDS: ONDANSETRON 4 MG/2 ML VIAL IVP STA (17:33)
[2025-05-10] MEDS: SODIUM CHLORIDE 0.9% 1,000 ML IV STA (17:33)
[2025-05-10] MEDS: PANTOPRAZOLE 40 MG/10 ML VIAL IVP STA (17:36)
[2025-05-10 17:40] LABS: Basophils # (A) 0.03 10*3/uL (0.00-0.10); Basophils % (A) 0.4 %; Eosinophils # (A) 0.07 10*3/uL (0.04-0.35); Eosinophils % (A) 0.9 %; HCT 38.8 % (37.2-46.3); HGB 13.5 g/dL (12.0-15.0); Lymphocytes # (A) 1.73 10*3/uL (0.90-5.00); Lymphocytes % (A) 21.6 %; MCH 28.8 pg (27.0-32.0); MCHC 34.8 g/dL (32.0-37.0); MCV 82.9 fL (80.0-97.0); Monocytes # (A) 0.45 10*3/uL (0.20-1.00); Monocytes % (A) 5.6 %; Neutrophils # (A) 5.70 10*3/uL (1.80-7.70); Neutrophils % (A) 71.2 %; Platelet Count 255 10*3/uL (140-440); RBC 4.68 10*6/uL (4.10-5.20); RDW 13.7 % (11.5-14.5); WBC 8.00 10*3/uL (4.50-10.00)
[2025-05-10 17:42] LABS: Bilirubin,Urine 1+ (Negative); Blood,Urine Negative (Negative); Color,Urine Yellow; Glucose,Urine (UA) Negative (Negative); Ketones,Urine 3+ (Negative); Leukocyte Esterase,Urine Negative (Negative); Nitrite,Urine Negative (Negative); PH, Urine 6.0 (5.0-8.0); Protein,Urine Trace (Negative); Specific Gravity,Urine 1.025 (1.001-1.035); Urobilinogen,Urine 3.0 mg/dL (<2.0)
[2025-05-10 18:01] LABS: ALT 15 U/L (4-34); AST 23 U/L (14-36); African American GFR (CKD) >90 (>60 ml/min/1.73 sqM); Albumin 4.0 g/dL (3.5-5.0); Alkaline Phosphatase 65 U/L (38-126); Anion Gap 13 mmol/L; Blood Urea Nitrogen 5 mg/dL (7-17); Calcium 9.6 mg/dL (8.4-10.2); Carbon Dioxide 24 mmol/L (22-30); Chloride 99 mmol/L (98-107); Glucose 82 mg/dL (74-99); Magnesium 1.6 mg/dL (1.6-2.3); Non-African American GFR(CKD) >90 (>60 ml/min/1.73 sqM); Potassium 3.6 mmol/L (3.5-5.1); Sodium 136 mmol/L (137-145); Total Protein 6.7 g/dL (6.3-8.2)
[2025-05-10 18:58] VITALS: BP 116/76; PULSE 79
== END 2025-05-10 19:26 | disposition home or self-care (01) ==
LOC: EC 16:26
CPT/HCPCS: 36415; 80053; 81003; 83735; 85025; 96361; 96374; 96375; 99284